=== PATIENT | female | born 1950 | race Caucasian/White ===

== ENCOUNTER → 2018-02-28 | Outpatient (CLI) | payer OTHER ==
[~2018-02-28] MED LIST: ACET-1256 PO; AMB10 PO; ATOR10TA82 PO; CZR25 PO; HYDC25 PO; LEVO100T84 PO; SERT50TA PO
--- NOTE | 2018-03-01 05:49 | PAP/PSG TECHNICIAN REPORT ---
[facility] Clinical Safety Manager Polysomnogram Report Study name: None Report date: 03/01/2018 Study date: 02/28/2018 Referring Physician: Dr. Lopez Name: KATHIE KINSEY Interpreting Physician: Latha Lopez M.D. Date of : 1950 Clinical Safety Manager: Zach Castellanos RPSGT. Sex: Female Age: 67 StudyType: PSG Weight: 188 lbs 15 inches Height: 67 years, Height 5' 4" Neck Circum: BMI: 32.27 Medications: AMBIEN 5 MG, ATIVAN 0.5 MG, LEVOXYL 125 MCG, TOPROL XL 125 MCG, ZOLOFT 50 MG, BUMEX 0.5 MG, PLAVIX 75 MG, LOSARTAN POTASSIUM 100 MG, ZOCOR 80 MG, NITROSTAT 0.4 MG, ASPIRIN 81 MG Patient History PATIENT HAS HISTORY OF DEPRESSION, INSOMNIA, HYPERTENSION AND SNORING. SHE IS HERE TODAY FOR AN EVALUATION FOR BASILIA. ESS = 4 RM 6 Parameters Monitored NPSG: E1-M2, E2-M1, Fp1-M2, Fp2-M1, F3-M2, F4-M2, F4-M1, C3-M2, C4-M2, C4-M1, O1-M2, O2-M2, O2-M1, T3-M2, T4-M1, P3-M2, P4-M1, CHIN1, CHIN2, HR, EKG, Legs, PFLOW, SNOR, FLOW, CFLOW, Tidal Volume, THOR, ABDO, SpO2, PLTH, CPRESS, ETCO2 Wave, ETCO2, pH Sleep Architecture Sleep Stages Time at Lights Off 10:14:41 PM STAGES Time (min.) TST (%) Time at Lights On 5:24:11 AM Wake 64.0 -- Total Recording Time (TRT) 430.00 min. N1 34.0 9 Total Sleep Period (TSP) 413.0 min. N2 305.0 83 Total Sleep Time (TST) 365.5min. N3 11.0 3 Awake Time 64.0 min. REM 15.5 4 Wake after Sleep Onset 47.5 min. Sleep Efficiency (SE) 85 % Sleep Onset Latency (CHAPIN) 16.5 min. Number of Stage 1 Shifts None Awakenings 18 Stage Changes 80 Number of REM periods 1 REM 15.5 4 REM Latency 397.0 min. NREM 350.0 96 Body Position Analysis Supine Right Left Side Prone Vertical Total Sleep Time (min.) 89.0 284.0 0.0 284.00 0.0 0.0 Total Sleep Time (%) 22% 78% 0% 78 0% N/A% Total Sleep Time REM (min.) 0.0 15.5 0.0 None 0.0 0.0 Total Sleep Time NREM (min.) 81.5 268.5 0.0 None 0.0 0.0 Intermittent Wake (min.) 7.5 56.5 0.0 None 0.0 0.0 Total Sleep Period (%) 21% None None None None None Arousals Myoclonus (PLM) * Events Count Index Events Count Index Spontaneous 44 7 Events Awake (PLMW) 85 79.7 Respiratory 0 0.0 Events Asleep w/ Arousal (PLMA) 26 4.3 PLM 26 4 Events Asleep w/o Arousal (PLMS) 379 62.2 Snoring 1 0 Total Asleep 405 66.5 Total 71 12 Total 490 68 Respiratory Analysis * CA OA MA CH H RERA Total Count 0 8 1 0 99 0 108 Index 0.0 1.3 0.2 0 16.3 0 17.7 Mean Duration 0.0 16.1 18.9 0.00 14.5 0.0 14.6 Longest Duration 0.0 18.2 18.9 0.00 18.9 0.0 28.1 Respiratory Event Summary Total Supine ~Supine Right Left Prone REM NREM Apneas Count 9 9 0 0 N/A N/A 0 9 Index 1.5 7 0 0.0 N/A N/A 0 2 Hypopneas (4% Desat) Count 99 93 6 6 N/A N/A 0 99 Index 16.3 68.5 1 1.3 N/A N/A 0.0 17.0 Apneas & All Hypopneas Count 108 102 6 6 N/A N/A 0 108 Index 17.7 75 1 1 N/A N/A 0.0 18.5 Respiratory Events (Final Cigar And Box Examiner+All Hyp+RERA) Count 108 102 6 6 N/A N/A 0 108 Index 17.7 75 1 1.3 N/A N/A 0.0 18.5 Respiratory Related Arousal Count 0 102 0 0 N/A N/A 0 0 Index 0.0 0 0 0 N/A N/A 0 0 Snoring Analysis Supine Right Left Prone REM NREM Total Snore duration 5.7 min Snores count 88 219 N/A N/A 6 301 307 Snore mean duration 1.1 Sec Snores index 65 46 N/A N/A 23.2 51.6 50.4 TST with snoring (%) 1.6% SpO2 Analysis Total REM NREM Awake <50% 0.0 min. 0.0 min. 0.0 min. 0.0 min. 51 - 60% 0.0 min. 0.0 min. 0.0 min. 0.0 min. 61 - 70% 0.0 min. 0.0 min. 0.0 min. 0.0 min. 71 - 80% 0.0 min. 0.0 min. 0.0 min. 0.0 min. 81 - 90% 68.1 min. 0.5 min. 62.6 min. 5.1 min. 91 - 100% 360.1 min. 15.0 min. 287.2 min. 57.9 min. Average 92 92 92 93 Minimum SpO2 86 90 86 88 Desaturation Event Index 17.0 0.0 19.7 6.6 # Desat. Events below 89% 40 N/A 39 1 Time(%) with Saturation below 89% 1.2 0.0 1.2 0.1 Time(min.) with Saturation below 89% 5.2 0.0 4.9 0.3 Heart Rate Analysis End Tidal CO2 Analysis Min (bpm) Max (bpm) Average (bpm) TSP (mins) % of TSP Awake 44 127 51 Above 55 mmHg 0.0 0.0 NREM 41 58 46 50-55 mmHg 0.0 0.0 REM 44 51 47 45-50 mmHg 0.0 0.0 Overall 41 58 46 40-45 mmHg 0.0 0.0 35-40 mmHg 226.0 61.8 30-35 mmHg 120.9 33.1 Average ETCO2 0.3 Supplemental O2 Values Minimum O2 level: None Value Start Time End Time Clinical Safety Manager Comments Mrs. Kinsey slept in the right and supine positions. No cardiac arrhythmia noted. Leg movements noted. No bruxism noted. Snoring was noted and scored as a 2 on a scale of 1 through 5. (0=no snoring, 5=snoring loud enough to be heard through a closed door or down the [address] way) Mrs. Kinsey awoke to use the restroom 0 times during the night. Mrs. Kinsey stated I slept as well as I do when I am in my own bed. The final report will be interpreted and signed by a sleep physician. The completed physician report will then be placed in the patient medical record. Therapy (cm H2O) 0 TIB (min.) 429.5 TST (min.) 365.5 Sleep Onset (min.) 16.5 REM Onset From Sleep (min.) 397.0 Sleep Efficiency % 85 Wakefulness (%) 15 Wakefulness (min.) 64.0 NREM 1 (%) 9 NREM 1 (min.) 34.0 NREM 2 (%) 83 NREM 2 (min.) 305.0 NREM 3 (%) 3 NREM 3 (min.) 11.0 REM (%) 4 REM (min.) 15.5 # Arousals 71 Arousal Index 12 # Snore 307 Snore Index 50.4 AHI 17.7 AHI Supine 75 AHI Non-Supine 1 NREM AHI 18.5 REM AHI 0.0 RDI 17.7 # Obstructive Apnea 8 # Central Apnea 0 # Mixed Apnea 1 # Hypopneas 99 RERAs 0 Total Respiratory Events 108 Time Below SpO2 89% (min.) 4.9 Mean NREM SpO2 (%) 92 Mean REM SpO2 (%) 92 Mean Sleep SpO2 (%) 92 Min NREM SpO2 (%) 86 Min REM SpO2 (%) 90 Position Supine (min.) 89.0 Position Non-supine (min.) 284.0 LM Index Sleep 66.5 LM Index NREM 68.1 LM Index REM 31.0 Mean Heart Rate (bpm) 46 Min Heart Rate (bpm) 41
--- NOTE | 2018-03-16 15:38 | Sleep Study ---
Sleep Study Report Date of Service: 03/16/18 Sleep Study Report AN- > <MR-Medical Record#: [id number]> <RT-Report type: [id number]> <DB-Dictated by: CHRIS> <SI-Site: CEC> <TB-Transcribed by: EASYIII> <DE-Department: C.NEUR> [facility] Diagnostic Polysomnogram Interp Report Study name: None Report date: 03/16/2018 Study date: 02/28/2018 Referring Physician: Dr. Lopez Name: KATHIE RECIO Interpreting Physician: Latha Lopez M.D. Date of : 1950 Shoe Dyer: FORREST Parnell. Sex: Female Age: 67 Study Type: PSG Weight: 188 lbs Height: 67 years, Height 5' 4" Neck Circum: 15 BMI: 32.27 DIAGNOSTIC POLYSOMNOGRAPHY REPORT This patient was referred by Dr. Lopez. LORAINEAMPARO NISHANT RECIO, tested at 8:00: 41 PM on 02/28/2018, is a 67 year old female, date of 1950 who is 5' 4 " and 188 lbs, with a BMI of 32.27, which is elevated. This patient has an [place] Sleepiness Score of 4, which is normal. The neck circumference is 15 inches. Study scored by: Latha Lopez M.D. IMPRESSION: 1-Moderate obstructive sleep apnea syndrome. These respiratory events were associated with oxygen desaturations (georgette of 86 %). 2-Abnormal sleep architecture likely due to respiratory events and first night effect. RECOMMENDATIONS: 1-CPAP titration study. 2-Avoidance of alcohol and sedatives. Past medical history: Insomnia, HTN. Medications: Ambien, Ativan, Levoxyl, Toprol, Levoxyl, Toprol, Zoloft, Bumex, Plavix, Losartan, Zocor, Nitrostat, Aspirin Sleep Study Summary Procedure: The study was attended continuously by a electronic technologist. The monitored parameters included: left (E1-M2) and right (E2-M1) EOG, frontal (F3- M2 & F4-M1), central (C3-M2 & C4-M1) and occipital (O1-M2 & O2-M1) EEG, mental and submental EMG, left and right anterior tibialis EMG, left and right extensor digitorum EMG, single ECG waveform, snoring, continuous airflow with thermistor and nasal pressure transducer, chest and abdominal effort, oxygen saturation, EtCO2, and body position via video monitoring. Hypopnea definition: The nasal pressure signal excursions (or those of the alternative hypopnea sensor) drop by 30% of baseline. The duration of this drop occurs for a period lasting at least 10 seconds. There is a 4% desaturation from pre-event baseline or the event is associated with an arousal. At least 90 % of the event's duration must meet the amplitude reduction criteria for hypopnea. Sleep Data: This patient displayed normal latency to sleep onset of 16.5 min., with disrupted sleep architecture with sleep stage percentages of 8% N1, 74% N2, 3% N3, and 4% REM, with reduced sleep efficiency of 85% and with Total Sleep Time of 365.5 minutes. Respiratory Data: 108 respiratory events were observed. The apnea-hypopnea index was 17.7 which is moderate. The amounts of apneas/hypopneas are not evenly distributed throughout the study, with a non-REM RDI of 18.5 and a REM RDI of 0.0. Respiratory events were more frequent in the supine position. The longest respiratory event duration was 28.1 sec. Minimum NREM oxygen saturation was 86% ; minimum REM oxygen saturation was 90%. Time spent below SaO2 of 90% was 0.0 min. The time spent with SaO2 of 80-89% was 5 min. Snoring was noted to be present. Limb Movement: 405 limb movements were observed for an index of 66.5. Arousal: 71 arousals were observed, with a total index of 12. There were 44 spontaneous arousals, 0 respiratory arousals (respiratory arousal index of 0.0) , and 26 limb movement arousals (limb movement arousal index of 4). Cardiac: The average heart rate during sleep was 46 beats per minute, with a range of 41 to 58. During wake, the heart rate ranged from 44 to 127 beats per minute. There were no arrhythmias noted. [place]-P[place]al breathing was absent. EEG: There were no epileptic form features reported. Behavioral Observation: The patient reported that their sleep for this study was the same in duration and of the same quality as usual. The patient did not display unusual behaviors. Thank you for the courtesy of this referral. Dr Latha Lopez Board Certified in Internal/ Sleep Medicine
== END | disposition home or self-care (01) ==
LOC: C.NEUR 20:00
PROVIDERS: ATTEND Internal Medicine
DX: G47.33 Obstructive sleep apnea (adult) (pediatric) (principal)

== ENCOUNTER 2023-10-18 13:20 | Inpatient (IN) ==
--- NOTE | 2023-10-18 13:33 | ED Triage Note ---
Date of Service October 18, 2023 Provider in Triage Author: Catherine Fulton History of Present Illness This patient was briefly evaluated while in triage. An abbreviated physical exam was performed. This patient is a 73-year-old Female who presents to the ED for evaluation of weakness, dizziness x 7 days. Notes associated exertional SOB, denies chest pain. Recent cold sxs, lingering productive cough. Subjective fever. Diarrhea, 1 episode of vomiting. Reports h/o SD. Physical Exam Constitutional: alert and oriented x3. no acute distress. HEENT: normocephalic, atraumatic. normal conjunctiva.PERRLA. EOM's grossly intact. Respiratory: equal chest rise. normal respiratory effort, no accessory muscle use. Cardiovascular: regular rate and rhythm. MSK: moves all 4 extremities spontaneously Psych:appropriate mood and affect. Initial orders for labs and / or imaging were placed and patient was placed in the waiting area until a bed is available. Please see further documentation for the full ED course.
[2023-10-18] MEDS: SODIUM CHLORIDE 0.9% 500 ML IV ONE (14:53)
--- NOTE | 2023-10-18 15:23 | XRay Report ---
SINGLE VIEW CHEST CLINICAL HISTORY: Fatigue. Generalized weakness. FINDINGS: A PA chest radiograph is compared to study dated 03/19/2007. The heart is enlarged noting ath erosclerotic calcification of the thoracic area. The pulmonary vasculature is noncongested. Chronic i nterstitial thickening similar to previous. There is bibasilar scarring/atelectasis. No airspace cons olidation or large pleural effusion is identified. No pneumothorax is seen. The skeletal structures a re osteopenic. The bony thorax is grossly intact. Degenerative change is noted in the shoulders and s pine. IMPRESSION: Cardiomegaly with no active disease in the chest. ACT 112: Negative or not required by law. Electronically signed by: Chuck Arroyo M.D. 10/18/2023 3:22 PM
[2023-10-18 15:32] LABS: Basophils # (auto) 0.05 K/uL (0.00-0.20); Basophils % (auto) 0.3 %; Eosinophils # (auto) 0.04 K/uL (0.00-0.50); Eosinophils % (auto) 0.3 %; Hematocrit (blood only) 37.6 % (37.0-47.0); Hemoglobin 12.1 g/dl (12.0-16.0); Immature Granulocytes # (auto) 0.09 K/uL (0.01-0.20); Immature Granulocytes % (auto) 0.6 %; Lymphocytes # (auto) 2.11 K/uL (1.20-3.40); Lymphocytes % (auto) 13.6 %; Mean Corpuscular Hemoglobin 30.8 pg (25.0-34.0); Mean Corpuscular Hgb Conc 32.2 g/dL (32.0-36.0); Mean Corpuscular Volume 95.7 fL (80.0-100.0); Mean Platelet Volume 10.7 fL (9.4-12.4); Monocytes # (auto) 1.01 K/uL (0.11-0.59); Monocytes % (auto) 6.5 %; Neutrophils # (auto) 12.21 K/uL (1.40-6.50); Neutrophils % (auto) 78.7 %; Platelet Count 234 K/uL (130-400); RDW Coefficient of Variation 12.8 % (11.5-14.5); RDW Standard Deviation 45.1 fL (36.4-46.3); Red Blood Count 3.93 M/uL (4.20-5.40); White Blood Count 15.51 K/ul (4.8-10.8)
[2023-10-18 15:47] LABS: Albumin Globulin Ratio 1.1 (0.9-2); Albumin Level 4.1 gm/dl (3.4-5.0); BUN Creatinine Ratio 20.2 (10-20); Bilirubin,Total 0.7 mg/dl (0.2-1.0); Calcium 9.4 mg/dl (8.6-10.3); Est GFR (African American) 58.3 ml/min; Est GFR (Non-African American) 50.3 ml/min; Globulin 3.8 gm/dl (2.5-4.0); Potassium 4.1 mmol/L (3.5-5.1); Total Protein 7.9 gm/dl (6.0-8.3)
[2023-10-18 15:53] LABS: Troponin I High Sensitivity 9.1 pg/ml (0-14)
[2023-10-18 16:23] LABS: Adenovirus PCR Not Detected (NotDetected); Bordetella parapertussis PCR Not Detected (NotDetected); Bordetella pertussis PCR Not Detected (NotDetected); Chlamydia pneumoniae PCR Not Detected (NotDetected); Coronavirus 229E PCR Not Detected (NotDetected); Coronavirus CoV-2 (COVID19)PCR Not Detected (NotDetected); Coronavirus HKU1 PCR Not Detected (NotDetected); Coronavirus NL63 PCR Not Detected (NotDetected); Coronavirus OC43PCR Not Detected (NotDetected); Human Metapneumovirus PCR Not Detected (NotDetected); Influenza A PCR Not Detected (NotDetected); Influenza B PCR Not Detected (NotDetected); Mycoplasma pneumoniae PCR Not Detected (NotDetected); Parainfluenza Virus 1 PCR Not Detected (NotDetected); Parainfluenza Virus 2 PCR Not Detected (NotDetected); Parainfluenza Virus 3 PCR Not Detected (NotDetected); Parainfluenza Virus 4 PCR Not Detected (NotDetected); Respiratory Syncytial VirusPCR Not Detected (NotDetected); Rhinovirus/Enterovirus PCR Not Detected (NotDetected)
--- NOTE | 2023-10-18 17:53 | Electrocardiogram Report ---
Test Reason : Blood Pressure : / mmHG Vent. Rate : 064 BPM Atrial Rate : 064 BPM P-R Int : 128 ms QRS Dur : 090 ms QT Int : 400 ms P-R-T Axes : -06 -30 031 degrees QTc Int : 412 ms Normal sinus rhythm Left axis deviation Poor R wave progression, consider anterior RI vs. lead placement vs. LVH Abnormal ECG When compared with ECG of 19-MAR-2007 12:32, ST no longer depressed in Anterior leads Confirmed by Leo Norman ([id number]) on 10/18/2023 5:52:53 PM Referred By: Confirmed By:Leo Norman
--- NOTE | 2023-10-18 17:54 | Emergency Department Note ---
Impression & Plan Acute pyelonephritis, Acute UTI (urinary tract infection), Leukocytosis ED Provider Note HISTORY OF PRESENT ILLNESS: Patient is a 73-year-old female presenting with dizziness and malaise. Patient reports that for the last 5 or 6 days she has been having dizziness, described as feeling like she is going to pass out. Denies any chest pain. Reports short of breath when she walks. Denies any cough or fevers. Denies any sick contact exposures. Denies any abdominal pain, nausea or vomiting. She denies any measured fevers at home, but reports that she is getting rigors at nighttime and then breaks out into a sweat. Denies any dysuria or hematuria. Reports general malaise for the last 7 days. Reports having no appetite or energy. ROS: as above PHYSICAL EXAM: Constitutional: Patient appears in no acute distress. HENT: Head: Normocephalic and atraumatic. Eyes: EOMI, PERRL Mouth/Throat: Mucous membranes moist. Neck: Trachea midline. Neck supple. Cardiovascular: RRR, No murmurs, rubs or gallops. Intact distal pulses. Pulmonary/Chest: No respiratory distress. Breath sounds clear and equal bilaterally. No wheezes or rales. Abdominal: Abdomen soft, no tenderness, rebound or guarding. Musculoskeletal: No edema, tenderness or deformity noted. Skin: Warm and dry. No rash, erythema, pallor or cyanosis Psychiatric: Appropriate mood and affect for situation. Neurological: Alert and keenly responsive. CN II-XII grossly intact, moving all extremities equally and fully. MDM: - Vitals signs showed hypertension - History obtained via patient. Patient presents with dizziness and malaise. Patient reports for the last 5 to 6 days she been having dizziness described as feeling she is going to pass out when she stands up. Denies any chest pain. Reports she feels short of breath when she walks. Denies any cough or fevers. She does report that she has been having rigors and nighttime sweats for the last 6 days. Denies any dysuria or hematuria. Reports feeling generally unwell for the last 7 days and has not had much of an appetite. - Chronic conditions affecting care: none - Differential diagnoses include, but are not limited to: viral syndrome; pneumonia; UTI; ACS; diverticulitis - Order placed for continuous cardiac monitoring. At this time, monitor showed rate of 60 bpm with normal sinus rhythm, per my interpretation. - External medical records reviewed. - EKG interpreted by myself showed normal sinus rhythm. Rate 64 bpm. QT 400. No acute ischemic changes. - Laboratory workup interpreted by myself showed leukocytosis (WBC 15.51) with left shift; stable electrolytes; normal troponin - UA showed evidence of infection - Blood cultures and procalcitonin added to workup - Given 2g IV rocephin and 500 cc NS. - Viral panel negative - CXR negative for pneumonia, per my interpretation - CT abdomen/pelvis with IV contrast showed enhancement of the mid to lower pole of the left kidney with surrounding information concerning her pyelonephritis. - Patient has had poor oral intake for the last week and states she has not had much of an appetite secondary to her nausea. Concerned about her ability to take oral antibiotics at home for pyelonephritis. Her rigors and nighttime fevers are also concerning. - Discussion was had with case briefer about patient's case and need for admission - Hospitalist consulted for admission - [facility] ASSESSMENT AND PLAN: Diagnosis: UTI; pyelonephritis; leukocytosis Plan: admit Past Med/Surg History Social History Smoking Status: Former smoker Preferred Language: Uzbek Feels Safe at Home: Yes Allergies Allergies Allergy/AdvReac Type Severity Reaction Status Date / Time adhesive Allergy Intermediate REDDENED Verified 10/18/23 18:23 RASH hydrochlorothiazide Allergy Intermediate ITCHY Verified 10/18/23 18:23 [From HydroDiuril] THROAT & EYES Penicillins Allergy Intermediate HIVES/RASH Verified 10/18/23 18:23 Sulfa (Sulfonamide Allergy Intermediate RASH Verified 10/18/23 18:23 Antibiotics) DIRK Inhibitors AdvReac Intermediate Cough Verified 10/18/23 18:23 nitrofurantoin AdvReac Intermediate CHEST Verified 10/18/23 18:23 [From Macrobid] TIGHTNESS, HEADACHE, DIZZINESS Home Meds Home Medications Medication Instructions Recorded Confirmed aspirin 81 mg tablet,delayed 81 mg PO DAILY 10/18/23 10/18/23 release clopidogrel 75 mg tablet 75 mg PO QAM 10/18/23 10/18/23 famotidine 40 mg tablet 40 mg PO QAM 10/18/23 10/18/23 levothyroxine 100 mcg tablet 100 mcg PO DAILYBB 10/18/23 10/18/23 losartan 100 mg tablet 100 mg PO QAM 10/18/23 10/18/23 metformin 500 mg tablet,extended 500 mg PO QAM 10/18/23 10/18/23 release 24 hr metoprolol succinate 25 mg 12.5 mg PO QAM 10/18/23 10/18/23 tablet,extended release 24 hr metronidazole 0.75 % topical gel 1 applic topical BID PRN AFFECTED 10/18/23 10/18/23 AREAS nitroglycerin 0.4 mg sublingual 0.4 mg sublingual DIRECTED PRN 10/18/23 10/18/23 tablet Chest Pain omega 3-vbd-gvo-fish oil 1,200 mg 2 cap PO DAILY 10/18/23 10/18/23 (144 mg-216 mg) capsule (Fish Oil) sertraline 100 mg tablet 100 mg PO QAM 10/18/23 10/18/23 simvastatin 80 mg tablet 80 mg PO HS 10/18/23 10/18/23 zolpidem 5 mg tablet 5 mg PO HS PRN Sleep 10/18/23 10/18/23 Results & Data (ED) Vital Signs Vital Signs - 24 hr 10/18/23 13:30 10/18/23 18:05 10/18/23 18:11 Temperature 36.4 C L Temperature Source Oral Pulse Rate 68 55 L Pulse Rhythm Regular Pulse Strength Normal Respiratory Rate 20 16 Respiratory Effort / Characteristics Non-Labored Spontaneous Respiratory Depth Normal Respiratory Pattern Regular Blood Pressure 120/74 Blood Pressure [Right Arm] 166/68 H Blood Pressure Mean 89 Blood Pressure Mean [Right Arm] 100 Blood Pressure Position Sitting Pulse Oximetry 94 98 Oxygen Delivery Method Room Air Room Air Sepsis Recent Fever Within 48 Hours Yes Sepsis New/Unexplained Change in Mental Status N/A Sepsis Action Taken by Nursing No Action Required Laboratory Data 10/18/23 14:50 10/18/23 14:50 Lab Results 10/18/23 10/18/23 10/18/23 Range/Units 14:50 18:33 Unknown WBC 15.51 H (4.8-10.8) K/ul RBC 3.93 L (4.20-5.40) M/uL Hgb 12.1 (12.0-16.0) g/dl Hct 37.6 (37.0-47.0) % MCV 95.7 (80.0-100.0) fL MCH 30.8 (25.0-34.0) pg MCHC 32.2 (32.0-36.0) g/dL RDW Std Deviation 45.1 (36.4-46.3) fL RDW Coeff of David 12.8 (11.5-14.5) % Plt Count 234 (130-400) K/uL MPV 10.7 (9.4-12.4) fL Immature Gran % (Auto) 0.6 % Neut % (Auto) 78.7 % Lymph % (Auto) 13.6 % [place] % (Auto) 6.5 % Eos % (Auto) 0.3 % Baso % (Auto) 0.3 % Neut # (Auto) 12.21 H (1.40-6.50) K/uL Lymph # (Auto) 2.11 (1.20-3.40) K/uL [place] # (Auto) 1.01 H (0.11-0.59) K/uL Eos # (Auto) 0.04 (0.00-0.50) K/uL Baso # (Auto) 0.05 (0.00-0.20) K/uL Immature Gran # (Auto) 0.09 (0.01-0.20) K/uL Sodium 136 (136-145) mmol/L Potassium 4.1 (3.5-5.1) mmol/L Chloride 106 (98-107) mmol/L Carbon Dioxide 21 (21-32) mmol/L Anion Gap 9 (3-11) BUN 22 (6-23) mg/dl Creatinine 1.09 (0.6-1.2) mg/dl Est Cr Clr Drug Dosing 48.0 ml/min Est GFR ( Amer) 58.3 ml/min Est GFR (Non-Af Amer) 50.3 ml/min BUN/Creatinine Ratio 20.2 H (10-20) Glucose 138 H (70-99(Fasting)) mg/dl Calcium 9.4 (8.6-10.3) mg/dl Magnesium 2.0 (1.7-2.4) mg/dl Total Bilirubin 0.7 (0.2-1.0) mg/dl AST 14 (13-39) U/L ALT 10 (7-52) U/L Alkaline Phosphatase 65 (34-104) U/L Troponin I High Sens 9.1 (0-14) pg/ml Total Protein 7.9 (6.0-8.3) gm/dl Albumin 4.1 (3.4-5.0) gm/dl Globulin 3.8 (2.5-4.0) gm/dl Albumin/Globulin Ratio 1.1 (0.9-2) Procalcitonin 0.23 (0-0.5) ng/ml Urine Color Yellow Urine Appearance Turbid A (Clear) Urine pH 5.5 (4.5-7.5) Ur Specific [place] 1.017 (1.000-1.030) Urine Protein 1+ H (Negative) Urine Glucose (UA) Negative (Negative) Urine Ketones Negative (Negative) Urine Blood 1+ H (Negative) Urine Nitrite Negative (Negative) Urine Bilirubin Negative (Negative) Urine Urobilinogen Negative (Negative) Ur Leukocyte Esterase 3+ H (Negative) Urine WBC (Auto) >30 H (0-5) /hpf Urine RBC (Auto) 0-4 (0-4) /hpf U Hyaline Cast (Auto) 1-5 (0-5) /lpf U Epithel Cells (Auto) >30 H (0-5) /lpf Urine Bacteria (Auto) 2+ H (Negative) Adenovirus (PCR) Not Detected (NotDetected) B. pertussis DNA (PCR) Not Detected (NotDetected) B.parapertussis DNA PCR Not Detected (NotDetected) C. pneumoniae DNA (PCR) Not Detected (NotDetected) Coronavirus OC43 (PCR) Not Detected (NotDetected) Coronavirus HKU1 (PCR) Not Detected (NotDetected) Coronavirus 229E (PCR) Not Detected (NotDetected) SARS-CoV-2 (PCR) Not Detected (NotDetected) Coronavirus NL63 (PCR) Not Detected (NotDetected) Human Metapneumovir PCR Not Detected (NotDetected) Influenza Type A (PCR) Not Detected (NotDetected) Influenza Type B (PCR) Not Detected (NotDetected) M. pneumoniae (PCR) Not Detected (NotDetected) Parainfluenza 1 (PCR) Not Detected (NotDetected) Parainfluenza 2 (PCR) Not Detected (NotDetected) Parainfluenza 3 (PCR) Not Detected (NotDetected) Parainfluenza 4 (PCR) Not Detected (NotDetected) RSV (PCR) Not Detected (NotDetected) Entero/Rhino (PCR) Not Detected (NotDetected) Administered Medications Discontinued Medications Sodium Chloride (Nss) 500 mls @ 999 mls/hr IV .Q31M ONE Stop: 10/18/23 14:04 Last Infusion: 10/18/23 18:24 Dose: Infused Documented By: Admin: 10/18/23 14:53 Dose: 999 mls/hr Documented By: JOVANNI Ioversol (Optiray 320 500ml) 85 ml IV ONCE ONE Stop: 10/18/23 18:17 Last Admin: 10/18/23 18:16 Dose: 85 ml Documented By: RILEY Imaging Data Radiologist's Impression: Chest X-Ray 10/18/23 13:33 SINGLE VIEW CHEST CLINICAL HISTORY: Fatigue. Generalized weakness. FINDINGS: A PA chest radiograph is compared to study dated 03/19/2007. The heart is enlarged noting atherosclerotic calcification of the thoracic area. The pulmonary vasculature is noncongested. Chronic interstitial thickening similar to previous. There is bibasilar scarring/atelectasis. No airspace consolidation or large pleural effusion is identified. No pneumothorax is seen. The skeletal structures are osteopenic. The bony thorax is grossly intact. Degenerative change is noted in the shoulders and spine. IMPRESSION: Cardiomegaly with no active disease in the chest. ACT 112: Negative or not required by law. Electronically signed by: Chuck Arroyo M.D. 10/18/2023 3:22 PM Abdomen/Pelvis CT 10/18/23 17:53 CT SCAN OF THE ABDOMEN AND PELVIS WITH IV CONTRAST CLINICAL HISTORY: Vomiting. Night sweats. Generalized weakness. COMPARISON STUDY: No priors. TECHNIQUE: Following the IV administration of 85 cc of Optiray 320, CT scan of the abdomen and pelvis is performed from the lung bases to the proximal femora. Images are reviewed in the axial, sagittal, and coronal planes. IV contrast was administered without complication. A dose lowering technique was utilized adhering to the principles of ALARA. CT DOSE: 1285.32 mGy.cm FINDINGS: Lung bases: The heart is normal in size and without pericardial effusion. The coronary arteries are densely calcified. There is bibasilar scarring/atelectasis. The lung bases are otherwise clear. Liver: The contrast-enhanced liver is normal in size, contour, and attenuation. There is no intrahepatic biliary ductal dilatation. The hepatic veins and portal veins are patent. Gallbladder: There calcified gallstones with no CT evidence of acute cholecystitis. Spleen: Normal in size and attenuation. Pancreas: Atrophic and grossly unremarkable. Adrenal glands: Unremarkable. Kidneys: The contrast enhanced kidneys are normal in size and without hydronephrosis. The right kidney enhances normally. There is heterogeneous enhancement seen in the mid to lower pole of the left kidney with associated perinephric stranding. A 1.8 cm cyst is noted in the right kidney. Additional subcentimeter cortical hypodensities also likely represent cysts but are too small for definitive characterization. Abdominal vasculature: There is advanced saphenous chronic calcification and ectasia of the abdominal aorta. There is mild aneurysmal dilatation of the left common iliac artery which measures up to 2.1 cm. Bowel: There is advanced diverticulosis of the left colon without CT evidence of diverticulitis. The appendix is well-visualized and normal. Peritoneum: There is no intraperitoneal free air or abdominal ascites. Lymphadenopathy: None. Pelvic viscera: The bladder is normal as visualized. The uterus is surgically absent. No adnexal lesion is seen. Skeletal structures: The skeletal structures are osteopenic. There is moderate to advanced lumbosacral spondylosis. No lytic or blastic lesions are seen. IMPRESSION: 1. There is heterogeneous enhancement in the mid to lower pole of the left kidney with surrounding inflammation. The appearance favors pyelonephritis. Correlate with clinical findings and urinalysis. 2. Cholelithiasis. 3. Advanced coronary artery atherosclerosis. 4. Colonic diverticulosis without CT evidence of acute diverticulitis. 5. Additional findings as above. ACT 112: Negative or not required by law. Electronically signed by: Chuck Arroyo M.D. 10/18/2023 6:36 PM Discharge Plan Visit Data Chief Complaint: Lethargic Stated Complaint: FATIGUE, HX OF CARDIAC EVENTS ED Provider: Catherine Fulton Discharge Problem: Acute pyelonephritis, Acute UTI (urinary tract infection), Leukocytosis Forms Stand Alone Forms: [facility] [place] Prescriptions Prescriptions: No Action famotidine 40 mg tablet 40 mg PO QAM sertraline 100 mg tablet 100 mg PO QAM clopidogrel 75 mg tablet 75 mg PO QAM simvastatin 80 mg tablet 80 mg PO HS aspirin 81 mg Tablet,Delayed Release (Dr/Ec) 81 mg PO DAILY levothyroxine 100 mcg tablet 100 mcg PO DAILYBB nitroglycerin 0.4 mg tablet, sublingual 0.4 mg sublingual DIRECTED PRN (Reason: Chest Pain) Rx Instructions: 1 TABLET UNDER TONGUE EVERY 5 MIN. FOR CHEST PAIN, MAX 3 DOSES IN 15 MINUTES. zolpidem 5 mg tablet 5 mg PO HS PRN (Reason: Sleep) metoprolol succinate 25 mg tablet extended release 24 hr 12.5 mg PO QAM losartan 100 mg tablet 100 mg PO QAM metformin 500 mg tablet extended release 24 hr 500 mg PO QAM metronidazole [Metrogel] 0.75 % Gel 1 applic TOPICAL BID PRN (Reason: AFFECTED AREAS) omega 6-wka-ays-fish oil [Fish Oil] 1,200 (144-216) mg Capsule 2 cap PO DAILY Referrals Referrals: Be Valdivia MD [Primary Care Provider] -
[2023-10-18] MEDS: OPTIRAY 320 500ml IV ONE (18:16)
[2023-10-18 18:27] LABS: Appearance Urine Turbid (Clear); Bacteria Urine Automated 2+ (Negative); Bilirubin Urine Negative (Negative); Blood Urine 1+ (Negative); Color Urine Yellow; Epithelial Cell Urine Auto >30 /lpf (0-5); Glucose Urine UA Negative (Negative); Ketones Urine Negative (Negative); Leukocyte Esterase Urine 3+ (Negative); Nitrite Urine Negative (Negative); Protein Urine 1+ (Negative); RBC Urine Automated 0-4 /hpf (0-4); Specific Gravity Urine 1.017 (1.000-1.030); Urobilinogen Urine Negative (Negative); WBC Urine Automated >30 /hpf (0-5); pH Urine 5.5 (4.5-7.5)
--- NOTE | 2023-10-18 18:38 | CT Scan Report ---
CT SCAN OF THE ABDOMEN AND PELVIS WITH IV CONTRAST CLINICAL HISTORY: Vomiting. Night sweats. Generalized weakness. COMPARISON STUDY: No priors. TECHNIQUE: Following the IV administration of 85 cc of Optiray 320, CT scan of the abdomen and pelvi s is performed from the lung bases to the proximal femora. Images are reviewed in the axial, sagittal , and coronal planes. IV contrast was administered without complication. A dose lowering technique wa s utilized adhering to the principles of ALARA. CT DOSE: 1285.32 mGy.cm FINDINGS: Lung bases: The heart is normal in size and without pericardial effusion. The coronary arteries are d ensely calcified. There is bibasilar scarring/atelectasis. The lung bases are otherwise clear. Liver: The contrast-enhanced liver is normal in size, contour, and attenuation. There is no intrahepa tic biliary ductal dilatation. The hepatic veins and portal veins are patent. Gallbladder: There calcified gallstones with no CT evidence of acute cholecystitis. Spleen: Normal in size and attenuation. Pancreas: Atrophic and grossly unremarkable. Adrenal glands: Unremarkable. Kidneys: The contrast enhanced kidneys are normal in size and without hydronephrosis. The right kidne y enhances normally. There is heterogeneous enhancement seen in the mid to lower pole of the left kid tita with associated perinephric stranding. A 1.8 cm cyst is noted in the right kidney. Additional sub centimeter cortical hypodensities also likely represent cysts but are too small for definitive charac terization. Abdominal vasculature: There is advanced saphenous chronic calcification and ectasia of the abdominal aorta. There is mild aneurysmal dilatation of the left common iliac artery which measures up to 2.1 cm. Bowel: There is advanced diverticulosis of the left colon without CT evidence of diverticulitis. The appendix is well-visualized and normal. Peritoneum: There is no intraperitoneal free air or abdominal ascites. Lymphadenopathy: None. Pelvic viscera: The bladder is normal as visualized. The uterus is surgically absent. No adnexal lesi on is seen. Skeletal structures: The skeletal structures are osteopenic. There is moderate to advanced lumbosacra l spondylosis. No lytic or blastic lesions are seen. IMPRESSION: 1. There is heterogeneous enhancement in the mid to lower pole of the left kidney with surrounding in flammation. The appearance favors pyelonephritis. Correlate with clinical findings and urinalysis. 2. Cholelithiasis. 3. Advanced coronary artery atherosclerosis. 4. Colonic diverticulosis without CT evidence of acute diverticulitis. 5. Additional findings as above. ACT 112: Negative or not required by law. Electronically signed by: Chuck Arroyo M.D. 10/18/2023 6:36 PM
[2023-10-18] MEDS: cefTRIAXone SODIUM 2,000 MG/50 ML BAG IV STA (19:39)
--- NOTE | 2023-10-18 21:02 | History & Physical Report ---
Date of Service October 18, 2023 Assessment & Plan (1) Acute pyelonephritis: Plan: 73-year-old female with past medical history significant for type 2 diabetes, hyperlipidemia, hypothyroidism, obstructive obstructive apnea, hypertension, CAD status post stent, history of bradycardia, GERD, fatty liver, restless leg syndrome, psychophysiological insomnia, comes with dizziness and weakness going on for last 1 week and found to have UTI. She is coughing and bringing phlegm for some time now. Getting short of breath on exertion. Having bilateral flank pain. Denies any chest pain. No headache. Vision is okay. Currently no runny nose or sore throat or earaches. No abdominal pain. Somewhat constipated. Denies any blood in the stools. Normal bladder movements.. Resting comfortably and hemodynamically stable. Acute pyelonephritis UA positive CT scan showing pyonephritis Empiric Rocephin, gentle fluids for 1 L Follow cultures Close monitor Weakness and dizziness Mostly from above Will monitor PT OT when stable Diabetes Hold metformin Sliding scale Will follow HbA1c CAD s/p stents On aspirin and Plavix and metoprolol succinate and statin Hypertension on metoprolol succinate and losartan Will monitor GERD Pepcid Hypothyroidism On Synthyroid Obstructive sleep apnea CPAP nightly Cough sob? cxr is ok will monitor if needed will do ct scan. DVT prophylaxis Lovenox Disposition Medical floor Full code History of Present Illness Chief Complaint: Weakness, dizziness, UTI Primary Care Provider: Be Valdivia MD 73-year-old female with past medical history significant for type 2 diabetes, hyperlipidemia, hypothyroidism, obstructive sleep apnea, hypertension, CAD status post stent, history of bradycardia, GERD, fatty liver, restless leg syndrome, psychophysiological insomnia, comes with dizziness and weakness going on for last 1 week and found to have UTI. She is coughing and bringing phlegm for some time now. Getting short of breath on exertion. Having bilateral flank pain. Denies any chest pain. No headache. Vision is okay. Currently no runny nose or sore throat or earaches. No abdominal pain. Somewhat constipated. Denies any blood in the stools. Normal bladder movements.. Resting comfortably and hemodynamically stable. Past med history as mentioned above Past surgical history. Colonoscopy. Cataracts. Total hysterectomy. S/p cardiac stent placement. Social history. . Quit smoking 2002. Smoked 1 pack a day for 33 years. No alcohol use. No drug use. Family history. Brother had [place]. Brother had multiple pacemakers. Father had heart disorder. Hypertension. Mother had stroke. Sister has asthma. Maternal aunt had breast cancer Allergies Allergy/AdvReac Type Severity Reaction Status Date / Time adhesive Allergy Intermediate REDDENED Verified 10/18/23 18:23 RASH hydrochlorothiazide Allergy Intermediate ITCHY Verified 10/18/23 18:23 [From HydroDiuril] THROAT & EYES Penicillins Allergy Intermediate HIVES/RASH Verified 10/18/23 18:23 Sulfa (Sulfonamide Allergy Intermediate RASH Verified 10/18/23 18:23 Antibiotics) DIRK Inhibitors AdvReac Intermediate Cough Verified 10/18/23 18:23 nitrofurantoin AdvReac Intermediate CHEST Verified 10/18/23 18:23 [From Macrobid] TIGHTNESS, HEADACHE, DIZZINESS Home Medications Medication Instructions Recorded Confirmed Type aspirin 81 mg tablet,delayed 81 mg PO DAILY 10/18/23 10/18/23 History release clopidogrel 75 mg tablet 75 mg PO QA 10/18/23 10/18/23 History famotidine 40 mg tablet 40 mg PO QA 10/18/23 10/18/23 History levothyroxine 100 mcg tablet 100 mcg PO DAILYBB 10/18/23 10/18/23 History losartan 100 mg tablet 100 mg PO QA 10/18/23 10/18/23 History metformin 500 mg tablet,extended 500 mg PO QAM 10/18/23 10/18/23 History release 24 hr metoprolol succinate 25 mg 12.5 mg PO QAM 10/18/23 10/18/23 History tablet,extended release 24 hr metronidazole 0.75 % topical gel 1 applic topical BID PRN AFFECTED 10/18/23 10/18/23 History AREAS nitroglycerin 0.4 mg sublingual 0.4 mg sublingual DIRECTED PRN 10/18/23 10/18/23 History tablet Chest Pain omega 5-nro-fsb-fish oil 1,200 mg 2 cap PO DAILY 10/18/23 10/18/23 History (144 mg-216 mg) capsule (Fish Oil) sertraline 100 mg tablet 100 mg PO QAM 10/18/23 10/18/23 History simvastatin 80 mg tablet 80 mg PO HS 10/18/23 10/18/23 History zolpidem 5 mg tablet 5 mg PO HS PRN Sleep 10/18/23 10/18/23 History Past Med/Surg History Social History Smoking Status: Former smoker Second Hand Exposure: No; Do You Dip or Chew Tobacco: No; Hx Alcohol Use: No Hx Substance Use: No Preferred Language: Congolese Communication Ability: Effective Sign Language Interpreter Required: No Beliefs That Will Affect Care: None Current Living Situation: Spouse Current Living Situation Comment: lives in a 2 story home with Other Information That Helps Us Care for You: No Feels Safe at Home: Yes Safety Concerns: Feels Safe At This Time Assistive Devices: CPAP and Glasses Review of Systems Review of Systems: All systems reviewed & are unremarkable except as noted in HPI & below Physical Exam Physical Exam: General- Not in distress. Head- atraumatic Eyes- PERRL. ENT- oropharynx clear Neck- supple, no JVD. Lungs- clear to auscultation no wheezing or crackles. Heart- regular rhythm; no murmur, no gallop. Abdomen- normal bowel sounds, soft, nontender, no distension.No cva tenderness Extremities- no pretibial edema, no erythema seen. Neuro- alert, oriented PERRL, no facial palsy; no dysarthria; Skin- warm & dry Results & Data Results & Data Vital Signs (Past 12 Hours) Vital Signs Temp Pulse Pulse Resp BP BP Pulse Ox 10/18/23 19:51 60 18 128/61 96 10/18/23 18:11 55 L 10/18/23 18:05 16 166/68 H 98 10/18/23 13:30 36.4 C L 68 20 120/74 94 O2 Del Method 10/18/23 19:51 Room Air 10/18/23 18:11 10/18/23 18:05 Room Air 10/18/23 13:30 Room Air Diagnostic Findings Laboratory Results WBC 15.51 K/ul (4.8-10.8) H 10/18/23 14:50 RBC 3.93 M/uL (4.20-5.40) L 10/18/23 14:50 Hgb 12.1 g/dl (12.0-16.0) 10/18/23 14:50 Hct 37.6 % (37.0-47.0) 10/18/23 14:50 MCV 95.7 fL (80.0-100.0) 10/18/23 14:50 MCH 30.8 pg (25.0-34.0) 10/18/23 14:50 MCHC 32.2 g/dL (32.0-36.0) 10/18/23 14:50 RDW Std Deviation 45.1 fL (36.4-46.3) 10/18/23 14:50 RDW Coeff of David 12.8 % (11.5-14.5) 10/18/23 14:50 Plt Count 234 K/uL (130-400) 10/18/23 14:50 MPV 10.7 fL (9.4-12.4) 10/18/23 14:50 Immature Gran % (Auto) 0.6 % 10/18/23 14:50 Neut % (Auto) 78.7 % 10/18/23 14:50 Lymph % (Auto) 13.6 % 10/18/23 14:50 [place] % (Auto) 6.5 % 10/18/23 14:50 Eos % (Auto) 0.3 % 10/18/23 14:50 Baso % (Auto) 0.3 % 10/18/23 14:50 Neut # (Auto) 12.21 K/uL (1.40-6.50) H 10/18/23 14:50 Lymph # (Auto) 2.11 K/uL (1.20-3.40) 10/18/23 14:50 [place] # (Auto) 1.01 K/uL (0.11-0.59) H 10/18/23 14:50 Eos # (Auto) 0.04 K/uL (0.00-0.50) 10/18/23 14:50 Baso # (Auto) 0.05 K/uL (0.00-0.20) 10/18/23 14:50 Immature Gran # (Auto) 0.09 K/uL (0.01-0.20) 10/18/23 14:50 Sodium 136 mmol/L (136-145) 10/18/23 14:50 Potassium 4.1 mmol/L (3.5-5.1) 10/18/23 14:50 Chloride 106 mmol/L (98-107) 10/18/23 14:50 Carbon Dioxide 21 mmol/L (21-32) 10/18/23 14:50 Anion Gap 9 (3-11) 10/18/23 14:50 BUN 22 mg/dl (6-23) 10/18/23 14:50 Creatinine 1.09 mg/dl (0.6-1.2) 10/18/23 14:50 Est Cr Clr Drug Dosing 48.0 ml/min 10/18/23 14:50 Est GFR ( Amer) 58.3 ml/min 10/18/23 14:50 Est GFR (Non-Af Amer) 50.3 ml/min 10/18/23 14:50 BUN/Creatinine Ratio 20.2 (10-20) H 10/18/23 14:50 Glucose 138 mg/dl (70-99(Fasting)) H 10/18/23 14:50 Calcium 9.4 mg/dl (8.6-10.3) 10/18/23 14:50 Magnesium 2.0 mg/dl (1.7-2.4) 10/18/23 14:50 Total Bilirubin 0.7 mg/dl (0.2-1.0) 10/18/23 14:50 AST 14 U/L (13-39) 10/18/23 14:50 ALT 10 U/L (7-52) 10/18/23 14:50 Alkaline Phosphatase 65 U/L (34-104) 10/18/23 14:50 Troponin I High Sens 9.1 pg/ml (0-14) 10/18/23 14:50 Total Protein 7.9 gm/dl (6.0-8.3) 10/18/23 14:50 Albumin 4.1 gm/dl (3.4-5.0) 10/18/23 14:50 Globulin 3.8 gm/dl (2.5-4.0) 10/18/23 14:50 Albumin/Globulin Ratio 1.1 (0.9-2) 10/18/23 14:50 Procalcitonin 0.23 ng/ml (0-0.5) 10/18/23 18:33 Urine Color Yellow 10/18/23 Unknown Urine Appearance Turbid (Clear) A 10/18/23 Unknown Urine pH 5.5 (4.5-7.5) 10/18/23 Unknown Ur Specific [place] 1.017 (1.000-1.030) 10/18/23 Unknown Urine Protein 1+ (Negative) H 10/18/23 Unknown Urine Glucose (UA) Negative (Negative) 10/18/23 Unknown Urine Ketones Negative (Negative) 10/18/23 Unknown Urine Blood 1+ (Negative) H 10/18/23 Unknown Urine Nitrite Negative (Negative) 10/18/23 Unknown Urine Bilirubin Negative (Negative) 10/18/23 Unknown Urine Urobilinogen Negative (Negative) 10/18/23 Unknown Ur Leukocyte Esterase 3+ (Negative) H 10/18/23 Unknown Urine WBC (Auto) >30 /hpf (0-5) H 10/18/23 Unknown Urine RBC (Auto) 0-4 /hpf (0-4) 10/18/23 Unknown U Hyaline Cast (Auto) 1-5 /lpf (0-5) 10/18/23 Unknown U Epithel Cells (Auto) >30 /lpf (0-5) H 10/18/23 Unknown Urine Bacteria (Auto) 2+ (Negative) H 10/18/23 Unknown Adenovirus (PCR) Not Detected (NotDetected) 10/18/23 Unknown B. pertussis DNA (PCR) Not Detected (NotDetected) 10/18/23 Unknown B.parapertussis DNA PCR Not Detected (NotDetected) 10/18/23 Unknown C. pneumoniae DNA (PCR) Not Detected (NotDetected) 10/18/23 Unknown Coronavirus OC43 (PCR) Not Detected (NotDetected) 10/18/23 Unknown Coronavirus HKU1 (PCR) Not Detected (NotDetected) 10/18/23 Unknown Coronavirus 229E (PCR) Not Detected (NotDetected) 10/18/23 Unknown SARS-CoV-2 (PCR) Not Detected (NotDetected) 10/18/23 Unknown Coronavirus NL63 (PCR) Not Detected (NotDetected) 10/18/23 Unknown Human Metapneumovir PCR Not Detected (NotDetected) 10/18/23 Unknown Influenza Type A (PCR) Not Detected (NotDetected) 10/18/23 Unknown Influenza Type B (PCR) Not Detected (NotDetected) 10/18/23 Unknown M. pneumoniae (PCR) Not Detected (NotDetected) 10/18/23 Unknown Parainfluenza 1 (PCR) Not Detected (NotDetected) 10/18/23 Unknown Parainfluenza 2 (PCR) Not Detected (NotDetected) 10/18/23 Unknown Parainfluenza 3 (PCR) Not Detected (NotDetected) 10/18/23 Unknown Parainfluenza 4 (PCR) Not Detected (NotDetected) 10/18/23 Unknown RSV (PCR) Not Detected (NotDetected) 10/18/23 Unknown Entero/Rhino (PCR) Not Detected (NotDetected) 10/18/23 Unknown Impressions Chest X-Ray 10/18/23 13:33 SINGLE VIEW CHEST CLINICAL HISTORY: Fatigue. Generalized weakness. FINDINGS: A PA chest radiograph is compared to study dated 03/19/2007. The heart is enlarged noting atherosclerotic calcification of the thoracic area. The pulmonary vasculature is noncongested. Chronic interstitial thickening similar to previous. There is bibasilar scarring/atelectasis. No airspace consolidation or large pleural effusion is identified. No pneumothorax is seen. The skeletal structures are osteopenic. The bony thorax is grossly intact. Degenerative change is noted in the shoulders and spine. IMPRESSION: Cardiomegaly with no active disease in the chest. ACT 112: Negative or not required by law. Electronically signed by: Chuck Arroyo M.D. 10/18/2023 3:22 PM Abdomen/Pelvis CT 10/18/23 17:53 CT SCAN OF THE ABDOMEN AND PELVIS WITH IV CONTRAST CLINICAL HISTORY: Vomiting. Night sweats. Generalized weakness. COMPARISON STUDY: No priors. TECHNIQUE: Following the IV administration of 85 cc of Optiray 320, CT scan of the abdomen and pelvis is performed from the lung bases to the proximal femora. Images are reviewed in the axial, sagittal, and coronal planes. IV contrast was administered without complication. A dose lowering technique was utilized adhering to the principles of ALARA. CT DOSE: 1285.32 mGy.cm FINDINGS: Lung bases: The heart is normal in size and without pericardial effusion. The coronary arteries are densely calcified. There is bibasilar scarring/atelectasis. The lung bases are otherwise clear. Liver: The contrast-enhanced liver is normal in size, contour, and attenuation. There is no intrahepatic biliary ductal dilatation. The hepatic veins and portal veins are patent. Gallbladder: There calcified gallstones with no CT evidence of acute cholecystitis. Spleen: Normal in size and attenuation. Pancreas: Atrophic and grossly unremarkable. Adrenal glands: Unremarkable. Kidneys: The contrast enhanced kidneys are normal in size and without hydronephrosis. The right kidney enhances normally. There is heterogeneous enhancement seen in the mid to lower pole of the left kidney with associated perinephric stranding. A 1.8 cm cyst is noted in the right kidney. Additional subcentimeter cortical hypodensities also likely represent cysts but are too small for definitive characterization. Abdominal vasculature: There is advanced saphenous chronic calcification and ectasia of the abdominal aorta. There is mild aneurysmal dilatation of the left common iliac artery which measures up to 2.1 cm. Bowel: There is advanced diverticulosis of the left colon without CT evidence of diverticulitis. The appendix is well-visualized and normal. Peritoneum: There is no intraperitoneal free air or abdominal ascites. Lymphadenopathy: None. Pelvic viscera: The bladder is normal as visualized. The uterus is surgically absent. No adnexal lesion is seen. Skeletal structures: The skeletal structures are osteopenic. There is moderate to advanced lumbosacral spondylosis. No lytic or blastic lesions are seen. IMPRESSION: 1. There is heterogeneous enhancement in the mid to lower pole of the left kidney with surrounding inflammation. The appearance favors pyelonephritis. Correlate with clinical findings and urinalysis. 2. Cholelithiasis. 3. Advanced coronary artery atherosclerosis. 4. Colonic diverticulosis without CT evidence of acute diverticulitis. 5. Additional findings as above. ACT 112: Negative or not required by law. Electronically signed by: Chuck Arroyo M.D. 10/18/2023 6:36 PM ECG Additional Comments: ECG. Normal sinus rhythm rate of 64. Left axis deviation. No acute ST changes seen. Code Status & VTE Plan VTE Prophylaxis Plan VTE Prophylaxis will be ordered: Yes
[2023-10-18] MEDS ORDERED: metroNIDAZOLE 0.75% TOPICAL GEL 45 GM TUBE TOP PRN (23:06)
[2023-10-18] MEDS ORDERED: NITROGLYCERIN SL 0.4 MG/TAB TAB SL PRN (23:06)
[2023-10-18] MEDS ORDERED: GLUCOSE 10 TAB/TUBE PO PRN (23:06)
[2023-10-18] MEDS ORDERED: GLUCAGON FOR INJ 1 MG VIAL SQ PRN (23:06)
[2023-10-18] MEDS ORDERED: CARBOHYDRATES FOR HYPOGLYCEMIA PO PRN (23:06)
[2023-10-18] MEDS ORDERED: ACETAMINOPHEN 325 MG TAB PO PRN (23:06)
[2023-10-18] MEDS ORDERED: GLUCOSE 40% GEL 15 GM TUBE PO PRN (23:06)
[2023-10-18] MEDS ORDERED: DEXTROSE 50% 50 ML SYRINGE IV PRN (23:06)
[2023-10-18] MEDS: INSULIN ASPART PER UNIT CHARGE SC SCH (23:20)
[2023-10-18] MEDS: SIMVASTATIN 80 MG TAB PO SCH (23:39)
[2023-10-18] MEDS: ZOLPIDEM TARTRATE 5 MG TAB PO PRN (23:39)
[2023-10-18] MEDS: SODIUM CHLORIDE 0.9% 1,000 ML IV SCH (23:40)
--- OUTSIDE RECORDS SUMMARY | 2023-10-19 00:47 | External Medical Summary | Summary of Care ---
Author Name Unknown Organization [facility] Address [address] [facility] [address] Phone [phone] Care Team Providers Care Wood Block Artist Name Role Phone Be Strickland MD Primary Care Provider + Reason for Visit * Reason Comments eRx-Medication Refill Encounter Details Date Type Department Care Team (Late st Contact Info) Description 09/22/2023 Refill Family Practice [facility] [address] [facility] [place] [address] Be Strickland [facility] [address] [facility] [id number] Gastroesophageal reflux disease without esophagitis Allergies Active Allergy Reactions Criticality Noted Date Comments Carlos Inhibitors 09/08/2004 cough Hydrodiuril 06/30/2007 Itchy eyes and throat, also hoarseness Latex 03/20/2007 Band-aids cause redness/rash at site Nitrofurantoin 08/03/2021 Headache, chest tightness, dizziness Penicillins 04/05/2003 hives, rash Sulfa Antibiotics 04/05/2003 rash Adhesive Tape 03/19/2007 rash documented as of this encounter (statuses as of 10/16/2023) Medications Medication Sig Dispensed Refills Start Date End Date Status ASPIRIN 81 MG PO TABS 1 TABLET DAILY 0 Active FISH OIL 1200 MG PO CAPSIndications:E panda 2 daily 0 0 10/20/2007 Active metroNIDAZOLE 0.75 % External Gel (Metrogel)Indicat ions:Rosacea Apply topically to affected area 2 times a day. Apply to affected area 45 g 11 09/14/2022 Active Metoprolol Succinate ER 25 MG Oral Tablet Extended Release 24 Hour (toPROL XL)Indications:Dy slipidemia, goal LDL below 100,S/P angioplasty with stent,Abdominal aortic aneurysm (HCC),HTN, goal below 140/90 TAKE ONE-HALF TABLET BY MOUTH EVERY MORNING 50 Tablet 3 02/04/2023 4 Active Levothyroxine Sodium 100 MCG Oral Tablet (Levoxyl)Indicati ons:Hypothyroidis m, unspecified type Take 1 Tablet by mouth in the morning. (at least 30 min prior to breakfast or other meds). 90 Tablet 3 06/17/2023 Active Zolpidem Tartrate 5 MG Oral Tablet (Ambien)Indicatio ns:Chronic insomnia TAKE 1 TABLET BY MOUTH EVERY DAY AT BEDTIME NEEDED FOR SLEEP 30 Tablet 3 06/23/2023 Active Nitroglycerin 0.4 MG Sublingual Tablet Sublingual (Nitrostat)Indica tions:S/P angioplasty with stent DISSOLVE 1 TABLET UNDER THE TONGUE EVERY 5 MINUTES NEEDED FOR CHEST PAIN. DO NOT EXCEED A TOTAL OF 3 DOSES IN 15 MINUTES 25 Tablet 2 07/12/2023 Active metFORMIN HCl ER 500 MG Oral Tablet Extended Release 24 Hour (Glucophage XR)Indications:Ty pe 2 diabetes mellitus with hemoglobin A1c goal of less than 8.0% (HCC) TAKE ONE TABLET BY MOUTH EVERY MORNING 100 Tablet 0 07/20/2023 Active Sertraline HCl 100 MG Oral Tablet (Zoloft)Indicatio ns:MDD (major depressive disorder), recurrent episode, mild (HCC) Take 1 Tablet by mouth in the morning. 100 Tablet 3 07/20/2023 Active Clopidogrel Bisulfate 75 MG Oral Tablet (pLAVix)Indicatio ns:S/P angioplasty with stent TAKE ONE TABLET BY MOUTH EVERY DAY 90 Tablet 3 08/10/2023 4 Active Simvastatin 80 MG Oral Tablet (Zocor)Indication s:S/P angioplasty with stent TAKE ONE TABLET BY MOUTH AT BEDTIME 90 Tablet 0 09/02/2023 5 Active Losartan Potassium 100 MG Oral Tablet (Cozaar)Indicatio ns:HTN, goal below 140/90 TAKE ONE TABLET BY MOUTH EVERY MORNING 90 Tablet 0 09/02/2023 5 Active Famotidine 40 MG Oral Tablet (Pepcid)Indicatio ns:Gastroesophage al reflux disease without esophagitis TAKE 1 TABLET BY MOUTH EVERY DAY 90 Tablet 0 09/23/2023 Active Famotidine 40 MG Oral Tablet (Pepcid)Indicatio ns:Gastroesophage al reflux disease without esophagitis TAKE 1 TABLET BY MOUTH EVERY DAY 90 Tablet 1 03/24/2023 4 Discontinued documented as of this encounter (statuses as of 10/16/2023) Active Problems Problem Noted Date Diagnosed Date Fatty liver 08/05/2021 Bradycardia 08/04/2019 Atherosclerosis of [place] co ronary artery of [place] heart without angina pectoris 10/03/2018 BASILIA (obstructive sleep apnea) 09/12/2018 RLS (restless legs syndrome) 02/08/2018 Psychophysiologic insomnia 02/08/2018 Type 2 diabetes mellitus wit h hemoglobin A1c goal of less than 8.0% 06/15/2016 Well adult exam 06/09/2016 Overview: 08/04 -aorta 2.8cm stable 2018 start metformin. Considering Shingrix Insomnia--failed rozerem. Consider doxepin/silenor, trazodone. Ambien in past needs PA 02/27 AAA screen-- no aneurysm 2.7cm ectasia, stable. No f/u Needed. DEXA WNL janice 10y 2016 colon WNL janice 10y Hypothyroidism 02/20/2016 Seborrheic keratosis 02/10/2016 BMI 35-39 ISOLATED (SEE ACTUAL BMI) 01/26/2010 Overview: Per Obesity Protocol, #19 Gastroesophageal reflux disease without esophagi tis 10/10/2009 Dyslipidemia, goal LDL below 70 07/29/2009 Overview: Per Lipid Taxonomy. S/P angioplasty with stent 04/13/2007 HTN, goal below 140/90 03/31/2005 documented as of this encounter (statuses as of 10/16/2023) Resolved Problems Problem Noted Date Diagnosed Date Resolved Date Depression with anxiety 02/10/201604/15 Screen for colon cancer 02/10/201601/13 Post-menopause 02/10/2016 01/31/2018 CAD (coronary artery disease) 05/20/2015 05/20/2015 Coronary artery disease invo lving [place] coronary artery without angina pectoris 05/20/2015 10/03/2018 HOARSENESS 10/10/2009 12/19/2019 Overview: Began 2007 Acute. NONALLERGIC RHINITIS 10/10/2009 020 Overview: Acute. EXAMINATION OF PARTICIPANT I N CLINICAL TRIAL- EVENT REGISTRY 05/19/2007 05/21/2008 Overview: Study Titile: Event Registry Project #[id number] PI: Jane Angulo MD Please call [phone] with study related questions EXAMINATION OF PARTICIPANT I N CLINICAL TRIAL: ISAR-REACT 3 05/18/2007 05/21/2008 Overview: ISAR-REACT 3: Prospective, randomized, double-blind, active controlled, multicenter trial of bivalirudin and unfractionated heparin in patients undergoing percutaneous coronary intervention Project #[id number] PI: Eduardo Ansari MD [phone] Electromedical Service Engineer: Brittney Nascimento RN [phone] Abdominal aortic aneurysm 04/13/2007 EXAMINATION OF PARTICIPANT I N CLINICAL TRIAL: Genomic Markers for Patients with Cardiovascular Disease 03/20/2007 11/28/2009 Overview: Renamed Per Clinical Trials Billing Project. Study Title: Genomic Markers for Patients with Cardiovascular Disease Project # [id number] GENOMICS CARDIO RESEARCH OTHER*[id number] 03/20/2007 09/21/2016 Overview: Renamed Per Clinical Trials Billing Project. Study Title: Genomic Markers for Patients with Cardiovascular Disease Project # [id number] ADVANCE DIRECTIVE INFORMATION 03/24/2006 12/19/2019 Overview: Information offered-patient declined. Historical. Special screening for malign ant neoplasms, colon 03/04/2006 08/20/2008 Overview: Colonoscopy 03/03/06--diverticulosis, tortuous colon, repeat 10 years ACQUIRED HYPOTHYROID NEC 03/31/200503/2016 Menopause 03/31/2005 08/20/2008 Dyslipidemia, goal to be determined 03/31/2005 07/29/2009 Overview: Per Lipid Taxonomy. documented as of this encounter (statuses as of 10/16/2023) Immunizations Name Administration Dates Next Due COVID-19 mRNA, LNP-s, No Pre serve, 2-Dose Series (Moderna) 10/05/2020,09/04/2020 COVID-19, mRNA, LNP-s, PF, B ooster, 100mcg/0.5mg (Moderna) 02/22/2022,06/23/2021 H1N1 2009 Influenza, IM 08/18/2009 Pneumococcal Conjugate Vacc, 13 Valent (Prevnar) 06/09/2016 Pneumococcal Polysaccharide PPV23 (Pneumovax) 06/22/2018,05/25/2007 RSV Vac., Bivalent, Perfusio n F, Pf,0.5 Ml (Abrysvo) 06/23/2023 Season Influenza, Quad, PF, Adjuvanted, 65+ Yrs, IM (FLUAD) 05/20/2020 Seasonal Influenza, PF, 6 M & above, IM , (FluLaval or Fluzone) 06/05/2018 Seasonal Influenza, Quadriva lent Hd (Fluzone Hd) 05/24/2023,05/14/2022,06/01/2021 Seasonal Influenza, Quadriva lent, No Preserve, IM 04/25/2017,06/07/2016 Seasonal Influenza, Split, I IV3, With Preserve, Inj 05/20/2015,05/22/2014,05/30/2013,05/12,05/18/2011,05/29/2010,05/19/2009 ,05/31/2008,05/25/2007,06/02/2006,05/16,05/29/2003 Seasonal Influenza, Trivalen t, Adjuvanted, 65+ yrs 05/21/2019 TDAP (age 10 and older)(Boostrix) 06/29/2019 TDAP (age 11 and older)(Adacel) 03/12/2009 Zoster Vaccine Recombinant (Shingrix) 05/20/2022 ,11/25/2021 documented as of this encounter Social History Tobacco Use Types Packs/Day Years Used Date Smoking Tobacco: Former Cigarettes 1 33 0 11/04/1969 - 11/04/2002 Smokeless Tobacco: Never Comments:no passive smoke ex posures Alcohol Use Standard Drinks/Week Comments No 0 (1 standard drink = 0.6 oz pur e alcohol) PHQ-2 Answer Date Recorded PHQ Adult Total Score 0 12/22/2022 Hunger Vital Sign Answer Date Recorded Within the past 12 months, y ou worried that your food would run out before you got the money to buy more. Never true 12/23/19 Within the past 12 months, t he food you bought just didn't last and you didn't have money to get more. Never true 12/22/2022 Sex and Gender Information Value Date Recorded Sex Assigned at Female 06/18/2022 9:43 AM EDT Gender Identity Female 06/18/2022 9:43 AM EDT Sexual Orientation Straight 06/18/2022 9: 43 AM EDT Job Start Date Occupation Industry Not on file Not on file Not on file documented as of this encounter Miscellaneous Notes * Telephone Encounter - Mitali Weiner cargo service supervisor - 10/16/2023 11:23 AM EST Received message from [facility] regarding patient needing labs. Placed call to patient to advise. Pt was agreeable to have labs drawn but would prefer to walk-in at their convenience. Thank you for your assistance Mitali Weiner Telephone Switchboard Operator II [facility] ([facility]) 10/16/2023,11:23 AM * Telephone Encounter - Yamel Del Angel [facility] - 09/23/2023 6:58 AM ESTSigned Prescriptions: Disp Refills Famotidine 40 MG Oral Tablet (Pepcid) 90 Tab*0 Sig: TAKE 1 TABLET BY MOUTH EVERY DAYAuthorizing Provider: BE STRICKLAND User: YAMEL DEL ANGEL-------- * Telephone Encounter - Yamel Del Angel RPh - 09/23/2023 6:56 AM EST Provided 90 days supply with 0 refill(s) until upcoming appointment. Per refill protocol patient should have BMP and other labs on file within past year. Reviewed AMP report, Care Gaps/Health Maintenance, medications list, and for any routine labs typically ordered for this patient. Lab orders placed. Please contact patient to advise of labs ordered for blood draw. Recommend patient to fast if able for labs. Patient may still have water and regular medications. Advise to obtain labs before her scheduled office visit 12/28/2023. Thank You, Yamel Del Angel [facility] Clinical Pharmacist [facility] ([facility] (formerly [facility]) [phone] 09/23/2023, 6:56 AM documented in this encounter Plan of Treatment Upcoming Encounters Date Type Department Care Team (Late st Contact Info) Description 12/28/2023 9:20 AM EDT Office Visit Family Practice [facility] [address] [address] Be Strickland MD [address] [place] [address] Scheduled Procedures Name Priority Associated Diagnoses Date/Ti me COLONOSCOPY FLEXIBLE PROXIMAL DIAGNOSTIC Recall Colon cancer screening Health Maintenance Due Date Last Done Comments Cologuard 1995 Fecal Occult Blood Test 1995 Sigmoidoscopy 1995 Diabetic Eye Exam 05/29/2022 05/29/2021 HbA1c 02/27/2023 08/30/2022, 11/0 11/2021, 11/25/2021, Additional history exists DXA Scan 03/01/2023 03/01/2016 COVID-19 Vaccine ( season) 2023 02/22/2022, 06/23/2021, 10/05/2020, Additional history exists GFR 08/30/2023 08/30/2022, 11/2021, 06/23/2021, Additional history exists Diabetic Foot Exam 09/14/2023 09/14/2022, 0 11/25/2021, 06/18/2020 Mammogram 09/30/2023 09/30/2022, 09/15, 07/24/2021, Additional history exists TSH 11/05/2023 11/04/2022, 08/15, 06/18/2022, Additional history exists Depression Screening 12/23/2023 12/22/2022 Albumin/Creatinine Ratio 07/04/2024 023, 06/18/2022, 06/23/2021, Additional history exists Colonoscopy 03/18/2026 03/18/2016, 11/2015, 03/03/2006 Colorectal Cancer Screening 03/18/2026 DTaP,Tdap,and Td Vaccines (3 - Td or Tdap) 06/29/2029 06/29/2019, 03/12/2009 Pneumococcal Vaccine: 65+ Years Completed 06/22/2018, 06/09/2016, 05/25/2007 Zoster Vaccines Completed 05/20/2022, 11/25/2021 Influenza Vaccine (FLU shot) Completed 05/2023, 05/14/2022, 06/01/2021, Additional history exists GARDASIL-HPV IMMUNIZATION SERIES Aged Out No longer eligible based on patient's age to complete this topic Hepatitis B Aged Out No longer eligi ble based on patient's age to complete this topic MENINGOCOCCAL (MENACTRA/MENVEO) Aged Out No longer eligible based on patient's age to complete this topic documented as of this encounter Medical Devices Implanted Type Area Electrical Technology Instructor Device Identifier Shelf Expiration Date Model / Serial / Lot Mx60 Intraoccular Lens Posterior Chamber Implanted:Qty: 1 on 01/02/2014 at OR [facility] Tissue - Non Human Right: Eye 11/12/2014 [id number] / [id number] / [id number] Lens 17.5 Mx60 - [id number] - [id number] Implanted:Qty: 1 on 12/31/2015 by Rodney Enriquez MD at OR [facility] Left: Eye [employer] : SURGICAL 04/14/2017 MX60-17.5 / [id number] / [id number] documented as of this encounter Visit Diagnoses Diagnosis Gastroesophageal reflux disease without esophagitis Esophageal reflux documented in this encounter Advance Directives Latest Code Status on File Code Status Date Activated Date Inactivated Comments Full Code 12/31/2015 9:14 AM 12/31/2015 2:03 PM This order reflects the patients wishes and were consensually agreed upon. Code Status History Code Status Date Activated Date Inactivated Comments Full Code 12/31/2015 7:26 AM 12/31/2015 9:14 AM This order reflects the patients wishes and were consensually agreed upon. Full Code 01/02/2014 7:15 AM 01/02/2014 1:18 PM This order reflects the patients wishes and were consensually agreed upon. Care Teams Wood Block Artist Relationship Specialty Start Date End Date Be Strickland MD [address] [facility] [place] [id number] PCP - General Family Medicine 06/09/16 documented as of this encounter
--- OUTSIDE RECORDS SUMMARY | 2023-10-19 00:47 | External Medical Summary | Summary of Care ---
Author Name Unknown Organization [facility] Address [address] [facility] [address] Phone [phone] Care Team Providers Care Youth Accommodation Support Worker Name Role Phone Be Strickland MD Primary Care Provider + Reason for Visit * Reason Comments Medication Refill Encounter Details Date Type Department Care Team (Late st Contact Info) Description 08/31/2023 Refill Family Practice [facility] [address] [place] [address] Be Strickland MD [address] [place] [address] S/P angioplasty with stent; HTN, goal below 140/90 Allergies Active Allergy Reactions Criticality Noted Date Comments Carlos Inhibitors 09/08/2004 cough Hydrodiuril 06/30/2007 Itchy eyes and throat, also hoarseness Latex 03/20/2007 Band-aids cause redness/rash at site Nitrofurantoin 08/03/2021 Headache, chest tightness, dizziness Penicillins 04/05/2003 hives, rash Sulfa Antibiotics 04/05/2003 rash Adhesive Tape 03/19/2007 rash documented as of this encounter (statuses as of 09/25/2023) Medications Medication Sig Dispensed Refills Start Date End Date Status ASPIRIN 81 MG PO TABS 1 TABLET DAILY 0 Active FISH OIL 1200 MG PO CAPSIndications: Edema 2 daily 0 0 10/20/2007 Active metroNIDAZOLE 0.75 % External Gel (Metrogel)Indica tions:Rosacea Apply topically to affected area 2 times a day. Apply to affected area 45 g 11 09/14/2022 Active Metoprolol Succinate ER 25 MG Oral Tablet Extended Release 24 Hour (toPROL XL)Indications:D yslipidemia, goal LDL below 100,S/P angioplasty with stent,Abdominal aortic aneurysm (HCC),HTN, goal below 140/90 TAKE ONE-HALF TABLET BY MOUTH EVERY MORNING 50 Tablet 3 02/04/2023 02/04/20 24 Active Levothyroxine Sodium 100 MCG Oral Tablet (Levoxyl)Indicat ions:Hypothyroid ism, unspecified type Take 1 Tablet by mouth in the morning. (at least 30 min prior to breakfast or other meds). 90 Tablet 3 06/17/2023 Active Zolpidem Tartrate 5 MG Oral Tablet (Ambien)Indicati ons:Chronic insomnia TAKE 1 TABLET BY MOUTH EVERY DAY AT BEDTIME NEEDED FOR SLEEP 30 Tablet 3 06/23/2023 Active Nitroglycerin 0.4 MG Sublingual Tablet Sublingual (Nitrostat)Indic ations:S/P angioplasty with stent DISSOLVE 1 TABLET UNDER THE TONGUE EVERY 5 MINUTES NEEDED FOR CHEST PAIN. DO NOT EXCEED A TOTAL OF 3 DOSES IN 15 MINUTES 25 Tablet 2 07/12/2023 Active metFORMIN HCl ER 500 MG Oral Tablet Extended Release 24 Hour (Glucophage XR)Indications:T ype 2 diabetes mellitus with hemoglobin A1c goal of less than 8.0% ([facility]) TAKE ONE TABLET BY MOUTH EVERY MORNING 100 Tablet 0 07/20/2023 Active Sertraline HCl 100 MG Oral Tablet (Zoloft)Indicati ons:MDD (major depressive disorder), recurrent episode, mild (HCC) Take 1 Tablet by mouth in the morning. 100 Tablet 3 07/20/2023 Active Clopidogrel Bisulfate 75 MG Oral Tablet (pLAVix)Indicati ons:S/P angioplasty with stent TAKE ONE TABLET BY MOUTH EVERY DAY 90 Tablet 3 08/10/2023 08/09/20 24 Active Simvastatin 80 MG Oral Tablet (Zocor)Indicatio ns:S/P angioplasty with stent TAKE ONE TABLET BY MOUTH AT BEDTIME 90 Tablet 0 09/02/2023 09/01/19 25 Active Losartan Potassium 100 MG Oral Tablet (Cozaar)Indicati ons:HTN, goal below 140/90 TAKE ONE TABLET BY MOUTH EVERY MORNING 90 Tablet 0 09/02/2023 09/01/19 25 Active Losartan Potassium 100 MG Oral Tablet (Cozaar)Indicati ons:HTN, goal below 140/90 TAKE ONE TABLET BY MOUTH EVERY MORNING 90 Tablet 3 09/14/2022 08/31/19 24 Discontinued(Ref ill) Simvastatin 80 MG Oral Tablet (Zocor)Indicatio ns:S/P angioplasty with stent TAKE ONE TABLET BY MOUTH AT BEDTIME 90 Tablet 3 08/19/2022 08/31/19 24 Discontinued(Ref ill) Famotidine 40 MG Oral Tablet (Pepcid)Indicati ons:Gastroesopha geal reflux disease without esophagitis TAKE 1 TABLET BY MOUTH EVERY DAY 90 Tablet 1 03/24/2023 09/23/19 24 Discontinued documented as of this encounter (statuses as of 09/25/2023) Active Problems Problem Noted Date Diagnosed Date Fatty liver 08/05/2021 Bradycardia 08/04/2019 Atherosclerosis of [place] co ronary artery of [place] heart without angina pectoris 10/03/2018 BASILIA (obstructive [...] as of this encounter (statuses as of 09/25/2023) Resolved Problems Problem Noted Date Diagnosed Date Resolved Date Depression with anxiety 02/10/201604/15 Screen for colon cancer 02/10/201601/13 Post-menopause 02/10/2016 01/31/2018 CAD (coronary artery disease) 05/20/2015 05/20/2015 Coronary artery disease invo lving [place] coronary artery without angina pectoris 05/20/2015 10/03/2018 HOARSENESS 10/10/2009 12/19/2019 Overview: Began 2007 Acute. NONALLERGIC RHINITIS 10/10/2009 020 Overview: Acute. EXAMINATION OF PARTICIPANT I N CLINICAL TRIAL- EVENT REGISTRY 05/19/2007 05/21/2008 Overview: Study Titile: Event Registry Project #[id number] PI: Jane Angulo MD Please call [phone] with study related questions EXAMINATION OF PARTICIPANT I N CLINICAL TRIAL: ISAR-REACT 3 05/18/2007 05/21/2008 Overview: ISAR-REACT 3: Prospective, randomized, double-blind, active controlled, multicenter trial of bivalirudin and unfractionated heparin in patients undergoing percutaneous coronary intervention Project #[id number] PI: Eduardo Ansari MD [phone] Commercial Real Estate Sales Manager: Brittney Nascimento RN [phone] Abdominal aortic aneurysm 04/13/2007 EXAMINATION OF PARTICIPANT I N CLINICAL TRIAL: Genomic Markers for Patients with Cardiovascular Disease 03/20/2007 11/28/2009 Overview: Renamed Per Clinical Trials Billing Project. Study Title: Genomic Markers for Patients with Cardiovascular Disease Project # [id number] GENOMICS CARDIO RESEARCH OTHER*[id number] 03/20/2007 09/21/2016 Overview: Renamed Per Clinical Trials Billing Project. Study Title: Genomic Markers for Patients with Cardiovascular Disease Project # [id number] ADVANCE DIRECTIVE INFORMATION 03/24/2006 12/19/2019 Overview: Information offered-patient declined. Historical. Special screening for malign ant neoplasms, colon 03/04/2006 08/20/2008 Overview: Colonoscopy 03/03/06--diverticulosis, tortuous colon, repeat 10 years ACQUIRED HYPOTHYROID NEC 03/31/200503/2016 Menopause 03/31/2005 08/20/2008 Dyslipidemia, goal to be determined 03/31/2005 07/29/2009 Overview: Per Lipid Taxonomy. documented as of this encounter (statuses as of 09/25/2023) Immunizations Name Administration Dates Next Due COVID-19 [...] Split, I IV3, With Preserve, Inj 05/20/2015,05/22/2014,05/30/2013,05/12,05/18/2011,05/29/2010,05/19/2009 ,05/31/2008,05/25/2007,06/02/2006 Seasonal Influenza, Trivalen t, Adjuvanted, 65+ yrs 05/21/2019 TDAP (age 10 and older)(Boostrix) 06/29/2019 TDAP (age 11 and older)(Adacel) 03/12/2009 Zoster Vaccine Recombinant (Shingrix) 05/20/2022 ,11/25/2021 documented as of this encounter Social History Tobacco Use Types Packs/Day Years Used Date Smoking Tobacco: Former Cigarettes 1 33 Q uit: 11/04/2002 Smokeless Tobacco: Never Comments:no passive smoke [...] money to buy more. Never true 12/23/19 23 Within the past 12 months, t he [...] Notes * Telephone Encounter - Mitali Weiner PHARM Tech - 09/25/2023 12:34 PM EST Received message from [facility] regarding patient needing labs. Placed call to patient to advise. Pt was agreeable to set up lab appointment. Patient scheduled for 10/03/2023. Thank you for your assistance Mitali Weiner Home Health Provider II [facility] ([facility]) (Formerly Telepharmacy) 09/25/2023,12:34 PM * Telephone Encounter - Jake Randolph [facility] - 09/02/2023 7:[address] Strickland, Please disregard. Routed in error [facility]: please contact patient for labs Thanks, Erik Randolph PharmD Clinical Pharmacist [facility] ([facility]) (Formerly [employer]) [phone] 09/02/2023 7:42 AM * Telephone Encounter - Jake Randolph RPh - 09/02/2023 7:41 AM ESTSigned Prescriptions: Disp Refills Simvastatin 80 MG Oral Tablet (Zocor) 90 Tab*0 Sig: TAKE ONE TABLET BY MOUTH AT BEDTIME Authorizing Provider: BE STRICKLAND Ordering User: JAKE RANDOLPH Losartan Potassium 100 MG Oral Tablet (Coz*90 Tab*0 Sig: TAKE ONE TABLET BY MOUTH EVERY MORNING Authorizing Provider: BE STRICKLAND Ordering User: JAKE RANDOLPH * Telephone Encounter - Jake Randolph RPh - 09/02/2023 7:40 AM EST Provided 90 days supply with 0 refill(s). Per refill protocol patient should have updated labs on file within past year. Reviewed AMP report, Care Gaps/Health Maintenance, medications list, and for any routine labs typically ordered for this patient. Lab orders placed. Please contact patient to advise of labs ordered for blood draw AND URINE specimen (patient will have to be able to void to provide sample). Recommend patient to fast if able for labs. Patient may still have water and regular medications. Advise to obtain labs before requesting the next refill. Thanks, Erik Randolph PharmD Clinical Pharmacist [facility] ([facility]) (Formerly [employer]) [phone] 09/02/2023 7:40 AM * Telephone Encounter - Wally Castro - 08/31/2023 8:52 PM ESTPending Prescriptions: Disp Refills Simvastatin 80 MG Oral Tablet (Zocor) 90 Tab*3 Sig: TAKE ONE TABLET BY MOUTH AT BEDTIME Losartan Potassium 100 MG Oral Tablet (Coz*90 Tab*3 Sig: TAKE ONE TABLET BYMOUTH EVERY MORNING documented in this encounter Plan of Treatment Upcoming Encounters Date Type Department Care Team (Late st Contact Info) Description 10/03/2023 9:00 AM EST Laboratory Laboratory, [facility] [address] [place] [phone] [facility] [address] [facility] [place] [address] 12/28/2023 9:20 AM EDT Office Visit Family Practice [facility] [address] [place] [address] Be Strickland MD [address] [facility] [place] [address] Scheduled Procedures Name Priority Associated Diagnoses Date/Ti me COLONOSCOPY FLEXIBLE PROXIMAL DIAGNOSTIC Recall Colon cancer screening Health Maintenance Due Date Last Done Comments Cologuard 1995 Fecal Occult Blood Test 1995 Sigmoidoscopy 1995 Hepatitis B (1 of 3 - Risk 3-dose series) 2010 Diabetic Eye Exam 05/29/2022 05/29/2021 HbA1c 02/27/2023 [...] this encounter Medical Devices Implanted Type Area Rd Project Manager Device Identifier Shelf Expiration Date Model / Serial / Lot Mx60 Intraoccular Lens Posterior Chamber Implanted:Qty: 1 on 01/02/2014 at OR [facility] Tissue - Non Human Right: Eye 11/12/2014 [id number] / [id number] / [id number] Lens 17.5 Mx60 - [id number] - [id number] Implanted:Qty: 1 on 12/31/2015 by Rodney Enriquez MD at OR [facility] Left: Eye [employer] LOMB : SURGICAL 04/14/2017 MX60-17.5 / [id number] / [id number] documented as of this encounter Visit Diagnoses Diagnosis S/P angioplasty with stent Postsurgical percutaneous transluminal coronary angioplasty status HTN, goal below 140/90 Unspecified essential hypertension documented in this encounter Advance Directives Latest [...] and were consensually agreed upon. Care Teams Youth Accommodation Support Worker Relationship Specialty Start Date End Date Be Strickland MD [address] [facility] [place] [address] PCP - General Family Medicine 06/09/16 documented as of this encounter
--- OUTSIDE RECORDS SUMMARY | 2023-10-19 00:47 | External Medical Summary | Summary of Care ---
Author Name Unknown Organization [facility] Address [address] [address] Phone [phone] Care Team Providers Care Log Haul Operator Name Role Phone Be Strickland MD Primary Care Provider + Reason for Visit * Reason Comments eRx-Medication Refill Encounter Details Date Type Department Care Team (Late st Contact Info) Description 09/22/2023 Refill Family Practice [facility] [address] [facility] [place] [address] Be Strickland [facility] [address] [facility] [id number] Gastroesophageal reflux disease without esophagitis Allergies Active Allergy Reactions Criticality Noted Date Comments Carlos Inhibitors 09/08/2004 cough Hydrodiuril 06/30/2007 Itchy eyes and throat, also hoarseness Latex 03/20/2007 Band-aids cause redness/rash at site Nitrofurantoin 08/03/2021 Headache, chest tightness, dizziness Penicillins 04/05/2003 hives, rash Sulfa Antibiotics 04/05/2003 rash Adhesive Tape 03/19/2007 rash documented as of this encounter (statuses as of 09/23/2023) Medications Medication Sig Dispensed Refills Start Date [...] as of this encounter (statuses as of 09/23/2023) Active Problems Problem Noted Date Diagnosed Date Fatty liver 08/05/2021 Bradycardia 08/04/2019 Atherosclerosis of [place] co ronary artery of [place] heart without angina pectoris 10/03/2018 BASILIA (obstructive [...] as of this encounter (statuses as of 09/23/2023) Resolved Problems Problem Noted Date Diagnosed Date Resolved Date Depression with anxiety 02/10/201604/15 Screen for colon cancer 02/10/201601/13 Post-menopause 02/10/2016 01/31/2018 CAD (coronary artery disease) 05/20/2015 05/20/2015 Coronary artery disease invo lving [place] coronary artery without angina pectoris 05/20/2015 10/03/2018 HOARSENESS 10/10/2009 12/19/2019 Overview: Began 2007 Acute. NONALLERGIC RHINITIS 10/10/2009 020 Overview: Acute. EXAMINATION OF PARTICIPANT I N CLINICAL TRIAL- EVENT REGISTRY 05/19/2007 05/21/2008 Overview: Study Titile: Event Registry Project #[id number] PI: Jane Angulo MD Please call [phone] with study related questions EXAMINATION OF PARTICIPANT I N CLINICAL TRIAL: ISAR-REACT 3 05/18/2007 05/21/2008 Overview: ISAR-REACT 3: Prospective, randomized, double-blind, active controlled, multicenter trial of bivalirudin and unfractionated heparin in patients undergoing percutaneous coronary intervention Project #[id number] PI: Eduardo Ansari MD [phone] Instrumentation Technologist: Brittney Nascimento RN [phone] Abdominal aortic aneurysm 04/13/2007 EXAMINATION OF PARTICIPANT I N CLINICAL TRIAL: Genomic Markers for Patients with Cardiovascular Disease 03/20/2007 11/28/2009 Overview: Renamed Per Clinical Trials Billing Project. Study Title: Genomic Markers for Patients with Cardiovascular Disease Project # [id number] GENOMICS CARDIO RESEARCH OTHER*[id number] 03/20/2007 09/21/2016 Overview: Renamed Per Clinical Trials Billing Project. Study Title: Genomic Markers for Patients with Cardiovascular Disease Project # [id number] ADVANCE DIRECTIVE INFORMATION 03/24/2006 12/19/2019 Overview: Information offered-patient declined. Historical. Special screening for malign ant neoplasms, colon 03/04/2006 08/20/2008 Overview: Colonoscopy 03/03/06--diverticulosis, tortuous colon, repeat 10 years ACQUIRED HYPOTHYROID NEC 03/31/200503/2016 Menopause 03/31/2005 08/20/2008 Dyslipidemia, goal to be determined 03/31/2005 07/29/2009 Overview: Per Lipid Taxonomy. documented as of this encounter (statuses as of 09/23/2023) Immunizations Name Administration Dates Next Due COVID-19 [...] encounter Miscellaneous Notes * Telephone Encounter - Yamel Del Angel RPh - 09/23/2023 6:58 AM ESTSigned Prescriptions: Disp [...] visit 12/28/2023. Thank You, Yamel Del Angel [facility] Clinical Pharmacist Centralized Clinical Pharmacy Services ([facility]) (formerly Telepharmacy) [phone] 09/23/2023, 6:56 AM documented in this encounter Plan of Treatment Upcoming Encounters Date Type Department Care Team (Late st Contact Info) Description 12/28/2023 9:20 AM EDT Office Visit [facility] [address] [place] [address] Be Strickland MD [address] [place] [address] Scheduled Procedures Name Priority Associated Diagnoses Date/Ti me COLONOSCOPY FLEXIBLE PROXIMAL DIAGNOSTIC Recall Colon cancer screening Health Maintenance Due Date Last Done Comments Cologuard 1995 Fecal Occult Blood Test 1995 Sigmoidoscopy 1995 Hepatitis B (1 of 3 - Risk 3-dose series) 2010 Diabetic Eye Exam 05/29/2022 05/29/2021 HbA1c 02/27/2023 08/30/2022, 11/2021, 11/25/2021, Additional history exists DXA Scan 03/01/2023 03/01/2016 COVID-19 Vaccine ( season) 2023 02/22/2022, 06/23/2021, 10/05/2020, Additional history exists GFR 08/30/2023 08/30/2022, 1111/2021, 06/23/2021, Additional history exists Diabetic Foot Exam 09/14/2023 09/14/2022, 0 11/25/2021, 06/18/2020 Mammogram 09/30/2023 09/30/2022, 0201/2023, 07/24/2021, Additional history exists TSH 11/05/2023 11/04/2022, 08/15, 06/18/2022, Additional history exists Depression Screening 12/23/2023 12/22/2022 Albumin/Creatinine Ratio 07/04/2024 023, 06/18/2022, 06/23/2021, Additional history exists Colonoscopy 03/18/2026 03/18/2016, 0811/2015, 03/03/2006 Colorectal Cancer Screening 03/18/2026 DTaP,Tdap,and Td [...] this encounter Medical Devices Implanted Type Area Cash Office Worker Device Identifier Shelf Expiration Date Model / Serial / Lot Mx60 Intraoccular Lens Posterior Chamber Implanted:Qty: 1 on 01/02/2014 at OR [facility] Tissue - Non Human Right: Eye 11/12/2014 [id number] / [id number] / [id number] Lens 17.5 Mx60 - [id number] - [id number] Implanted:Qty: 1 on 12/31/2015 by Rodney Enriquez MD at OR [facility] Left: Eye BAUSCH [employer] LOMB : SURGICAL 04/14/2017 MX60-17.5 / [id number] / [id number] documented as of this encounter Visit Diagnoses [...] and were consensually agreed upon. Care Teams Log Haul Operator Relationship Specialty Start Date End Date Be Strickland MD [address] [place] [address] PCP - General Family Medicine 06/09/16 documented as of this encounter
--- OUTSIDE RECORDS SUMMARY | 2023-10-19 00:47 | External Medical Summary | Summary of Care ---
Author Name Unknown Organization [facility] Address [address] [address] Phone [phone] Care Team Providers Care Store Operations Associate Name Role Phone Be Strickland MD Primary Care Provider + Reason for Visit * Reason Comments Medication Refill Encounter Details Date Type Department Care Team (Late st Contact Info) Description 08/10/2023 Refill Family Practice [facility] [address] [place] [address] Be Strickland MD [address] [place] [address] S/P angioplasty with stent Allergies Active Allergy Reactions Criticality Noted Date Comments Carlos Inhibitors 09/08/2004 cough Hydrodiuril 06/30/2007 Itchy eyes and throat, also hoarseness Latex 03/20/2007 Band-aids cause redness/rash at site Nitrofurantoin 08/03/2021 Headache, chest tightness, dizziness Penicillins 04/05/2003 hives, rash Sulfa Antibiotics 04/05/2003 rash Adhesive Tape 03/19/2007 rash documented as of this encounter (statuses as of 08/10/2023) Medications Medication Sig Dispensed Refills Start Date [...] MOUTH EVERY MORNING 50 Tablet 3 02/04/2023 02/04/2024 Active Losartan Potassium 100 MG Oral Tablet (Cozaar)Indicatio ns:HTN, goal below 140/90 TAKE ONE TABLET BY MOUTH EVERY MORNING 90 Tablet 3 09/14/2022 09/14/2023 Active Simvastatin 80 MG Oral Tablet (Zocor)Indication s:S/P angioplasty with stent TAKE ONE TABLET BY MOUTH AT BEDTIME 90 Tablet 3 08/19/2022 09/07/2023 Active Famotidine 40 MG Oral Tablet (Pepcid)Indicatio ns:Gastroesophage al reflux disease without esophagitis TAKE 1 TABLET BY MOUTH EVERY DAY 90 Tablet 1 03/24/2023 Active Levothyroxine Sodium 100 MCG Oral Tablet [...] MOUTH EVERY DAY 90 Tablet 3 08/10/2023 08/09/2024 Active Clopidogrel Bisulfate 75 MG Oral Tablet (pLAVix)Indicatio ns:S/P angioplasty with stent TAKE ONE TABLET BY MOUTH EVERY DAY 90 Tablet 3 08/04/2022 08/10/2023 Discontinue d(Refill) documented as of this encounter (statuses as of 08/10/2023) Active Problems Problem Noted Date Diagnosed Date Fatty liver 08/05/2021 Bradycardia 08/04/2019 Atherosclerosis of [place] ronary artery of [place] heart without angina pectoris 10/03/2018 BASILIA (obstructive [...] as of this encounter (statuses as of 08/10/2023) Resolved Problems Problem Noted Date Diagnosed Date Resolved Date Depression with anxiety 02/10/201604/15 Screen for colon cancer 02/10/201601/13 Post-menopause 02/10/2016 01/31/2018 CAD (coronary artery disease) 05/20/2015 05/20/2015 Coronary artery disease invo lving [place] coronary artery without angina pectoris 05/20/2015 10/03/2018 HOARSENESS 10/10/2009 12/19/2019 Overview: Began 2007 Acute. NONALLERGIC RHINITIS 10/10/2009 020 Overview: Acute. EXAMINATION OF PARTICIPANT I N CLINICAL TRIAL- EVENT REGISTRY 05/19/2007 05/21/2008 Overview: Study Titile: Event Registry Project #[id number] PI: Jane Angulo MD Please call [phone] with study related questions EXAMINATION OF PARTICIPANT I N CLINICAL TRIAL: ISAR-REACT 3 05/18/2007 05/21/2008 Overview: ISAR-REACT 3: Prospective, randomized, double-blind, active controlled, multicenter trial of bivalirudin and unfractionated heparin in patients undergoing percutaneous coronary intervention Project #[id number] PI: Eduardo Ansari MD [phone] Heavy Equipment Plumbing Supervisor: Brittney Nascimento RN [phone] Abdominal aortic aneurysm 04/13/2007 EXAMINATION OF PARTICIPANT I N CLINICAL TRIAL: Genomic Markers for Patients with Cardiovascular Disease 03/20/2007 11/28/2009 Overview: Renamed Per Clinical Trials Billing Project. Study Title: Genomic Markers for Patients with Cardiovascular Disease Project # [id number] GENOMICS CARDIO RESEARCH OTHER*[id number] 03/20/2007 09/21/2016 Overview: Renamed Per Clinical Trials Billing Project. Study Title: Genomic Markers for Patients with Cardiovascular Disease Project # [id number] ADVANCE DIRECTIVE INFORMATION 03/24/2006 12/19/2019 Overview: Information offered-patient declined. Historical. Special screening for malign ant neoplasms, colon 03/04/2006 08/20/2008 Overview: Colonoscopy 03/03/06--diverticulosis, tortuous colon, repeat 10 years ACQUIRED HYPOTHYROID NEC 03/31/200503/2016 Menopause 03/31/2005 08/20/2008 Dyslipidemia, goal to be determined 03/31/2005 07/29/2009 Overview: Per Lipid Taxonomy. documented as of this encounter (statuses as of 08/10/2023) Immunizations Name Administration Dates Next Due COVID-19 [...] encounter Miscellaneous Notes * Telephone Encounter - Sravan Vincent RPh - 08/10/2023 6:47 PM ESTSigned Prescriptions: Disp Refills Clopidogrel Bisulfate 75 MG Oral Tablet (p*90 Tab*3 Sig: TAKE ONE TABLET BY MOUTH EVERY DAYAuthorizing Provider: BE STRICKLAND User: SRAVAN VINCENT documented in this encounter Plan of Treatment Upcoming Encounters Date Type Department Care Team (Late st Contact Info) Description 12/28/2023 9:20 AM EDT Office Visit Family Practice [facility] [address] [place] [address] Be Strickland MD [address] [place] [address] Scheduled Procedures Name Priority Associated Diagnoses Date/Ti [...] 10/05/2020, Additional history exists GFR 08/30/2023 08/30/2022, 110 11/2021, 06/23/2021, Additional history exists Diabetic Foot Exam 09/14/2023 09/14/2022, 0 11/25/2021, 06/18/2020 Mammogram 09/30/2023 09/30/2022, 07/15, 07/23/2020, Additional history exists TSH 11/05/2023 11/04/2022, 08/15, 06/18/2022, Additional history exists Depression Screening 12/23/2023 12/22/2022 Albumin/Creatinine Ratio 07/04/2024 023, 06/18/2022, 06/23/2021, Additional history exists Colonoscopy 03/18/2026 03/18/2016, 08/0 11/2015, 03/03/2006 Colorectal Cancer Screening 03/18/2026 DTaP,Tdap,and [...] this encounter Medical Devices Implanted Type Area Halal Butcher Device Identifier Shelf Expiration Date Model / Serial / Lot Mx60 Intraoccular Lens Posterior Chamber Implanted:Qty: 1 on 01/02/2014 at OR [facility] Tissue - Non Human Right: Eye 11/12/2014 [id number] / [id number] / [id number] Lens 17.5 Mx60 - [id number] - [id number] Implanted:Qty: 1 on 12/31/2015 by Rodney Enriquez MD at OR [facility] Left: Eye BAUSCH [employer] LOMB : SURGICAL 04/14/2017 MX60-17.5 / [id number] / [id number] documented as of this encounter Visit Diagnoses Diagnosis S/P angioplasty with stent Postsurgical percutaneous transluminal coronary angioplasty status documented in this encounter Advance Directives Latest [...] and were consensually agreed upon. Care Teams Store Operations Associate Relationship Specialty Start Date End Date Be Strickland MD [address] [facility] [place] [address] PCP - General Family Medicine 06/09/16 documented as of this encounter
--- OUTSIDE RECORDS SUMMARY | 2023-10-19 00:48 | External Medical Summary | Summary of Care ---
Author Name Unknown Organization [facility] Address [address] [facility] [address] Phone [phone] Care Team Providers Care Linen Room Supervisor Name Role Phone Be Strickland MD Primary Care Provider + Reason for Visit * Reason Comments eRx-Medication Refill Encounter Details Date Type Department Care Team (Late st Contact Info) Description 06/22/2023 Refill Family Practice [facility] [address] [facility] [place] [address] Be Strickland MD [address] [facility] [place] [phone] Chronic insomnia Allergies Active Allergy Reactions Criticality Noted Date Comments Carlos Inhibitors 09/08/2004 cough Hydrodiuril 06/30/2007 Itchy eyes and throat, also hoarseness Latex 03/20/2007 Band-aids cause redness/rash at site Nitrofurantoin 08/03/2021 Headache, chest tightness, dizziness Penicillins 04/05/2003 hives, rash Sulfa Antibiotics 04/05/2003 rash Adhesive Tape 03/19/2007 rash documented as of this encounter (statuses as of 06/23/2023) Medications Medication Sig Dispensed Refills Start Date End Date Status ASPIRIN 81 MG PO TABS 1 TABLET DAILY 0 Active FISH OIL 1200 MG PO CAPSIndications:E panda 2 daily 0 0 10/20/2007 Active Nitroglycerin 0.4 MG Sublingual Tablet Sublingual (Nitrostat)Indica tions:S/P angioplasty with stent DISSOLVE 1 TABLET UNDER THE TONGUE EVERY 5 MINUTES NEEDED FOR CHEST PAIN. DO NOT EXCEED A TOTAL OF 3 DOSES IN 15 MINUTES 25 Tablet 2 05/25/2022 Active metroNIDAZOLE 0.75 % External Gel (Metrogel)Indicat [...] MORNING 50 Tablet 3 02/04/2023 4 Active Losartan Potassium 100 MG Oral Tablet (Cozaar)Indicatio ns:HTN, goal below 140/90 TAKE ONE TABLET BY MOUTH EVERY MORNING 90 Tablet 3 09/14/2022 4 Active Simvastatin 80 MG Oral Tablet (Zocor)Indication s:S/P angioplasty with stent TAKE ONE TABLET BY MOUTH AT BEDTIME 90 Tablet 3 08/19/2022 4 Active Clopidogrel Bisulfate 75 MG Oral Tablet (pLAVix)Indicatio ns:S/P angioplasty with stent TAKE ONE TABLET BY MOUTH EVERY DAY 90 Tablet 3 08/04/2022 3 Active metFORMIN HCl ER 500 MG Oral Tablet Extended Release 24 Hour (Glucophage XR)Indications:Ty pe 2 diabetes mellitus with hemoglobin A1c goal of less than 8.0% ([facility]) TAKE ONE TABLET BY MOUTH EVERY MORNING 100 Tablet 3 06/29/2022 3 Active Famotidine 40 MG Oral Tablet (Pepcid)Indicatio ns:Gastroesophage al reflux disease without esophagitis TAKE 1 TABLET BY MOUTH EVERY DAY 90 Tablet 1 03/24/2023 Active Sertraline HCl 100 MG Oral Tablet (Zoloft)Indicatio ns:MDD (major depressive disorder), recurrent episode, mild (HCC) Take 1 Tablet by mouth in the morning. 14 Tablet 0 04/15/2023 Active Levothyroxine Sodium 100 MCG Oral Tablet (Levoxyl)Indicati ons:Hypothyroidis m, unspecified type Take 1 Tablet by mouth in the morning. (at least 30 min prior to breakfast or other meds). 90 Tablet 3 06/17/2023 Active Zolpidem Tartrate 5 MG Oral Tablet (Ambien)Indicatio ns:Chronic insomnia TAKE 1 TABLET BY MOUTH EVERY DAY AT BEDTIME NEEDED FOR SLEEP 30 Tablet 3 06/23/2023 Active Zolpidem Tartrate 5 MG Oral Tablet (Ambien)Indicatio ns:Chronic insomnia TAKE 1 TABLET BY MOUTH AT BEDTIME NEEDED FOR SLEEP 30 Tablet 3 02/22/2023 3 Discontinued documented as of this encounter (statuses as of 06/23/2023) Active Problems Problem Noted Date Diagnosed Date Fatty liver 08/05/2021 Bradycardia 08/04/2019 Atherosclerosis of [place] co ronary artery of [place] heart without angina pectoris 10/03/2018 BASILIA (obstructive [...] as of this encounter (statuses as of 06/23/2023) Resolved Problems Problem Noted Date Diagnosed Date Resolved Date Depression with anxiety 02/10/201604/15 Screen for colon cancer 02/10/201601/13 Post-menopause 02/10/2016 01/31/2018 CAD (coronary artery disease) 05/20/2015 05/20/2015 Coronary artery disease invo lving [place] coronary artery without angina pectoris 05/20/2015 10/03/2018 HOARSENESS 10/10/2009 12/19/2019 Overview: Began 2007 Acute. NONALLERGIC RHINITIS 10/10/2009 020 Overview: Acute. EXAMINATION OF PARTICIPANT I N CLINICAL TRIAL- EVENT REGISTRY 05/19/2007 05/21/2008 Overview: Study Titile: Event Registry Project #[id number] PI: Jane Angulo MD Please call [phone] with study related questions EXAMINATION OF PARTICIPANT I N CLINICAL TRIAL: ISAR-REACT 3 05/18/2007 05/21/2008 Overview: ISAR-REACT 3: Prospective, randomized, double-blind, active controlled, multicenter trial of bivalirudin and unfractionated heparin in patients undergoing percutaneous coronary intervention Project #[id number] PI: Eduardo Ansari MD [phone] Sales Engagement Manager: Brittney Nascimento RN [phone] Abdominal aortic aneurysm 04/13/2007 EXAMINATION OF PARTICIPANT I N CLINICAL TRIAL: Genomic Markers for Patients with Cardiovascular Disease 03/20/2007 11/28/2009 Overview: Renamed Per Clinical Trials Billing Project. Study Title: Genomic Markers for Patients with Cardiovascular Disease Project # [id number] GENOMICS CARDIO RESEARCH OTHER*[id number] 03/20/2007 09/21/2016 Overview: Renamed Per Clinical Trials Billing Project. Study Title: Genomic Markers for Patients with Cardiovascular Disease Project # [id number] ADVANCE DIRECTIVE INFORMATION 03/24/2006 12/19/2019 Overview: Information offered-patient declined. Historical. Special screening for malign ant neoplasms, colon 03/04/2006 08/20/2008 Overview: Colonoscopy 03/03/06--diverticulosis, tortuous colon, repeat 10 years ACQUIRED HYPOTHYROID NEC 03/31/200503/2016 Menopause 03/31/2005 08/20/2008 Dyslipidemia, goal to be determined 03/31/2005 07/29/2009 Overview: Per Lipid Taxonomy. documented as of this encounter (statuses as of 06/23/2023) Immunizations Name Administration Dates Next Due COVID-19 mRNA, LNP-s, No Pre serve, 2-Dose Series (Moderna) 10/05/2020,09/04/2020 COVID-19, mRNA, LNP-s, PF, B ooster, 100mcg/0.5mg (Moderna) 02/22/2022,06/23/2021 H1N1 2009 Influenza, IM 08/18/2009 Pneumococcal Conjugate Vacc, 13 Valent (Prevnar) 06/09/2016 Pneumococcal Polysaccharide PPV23 (Pneumovax) 06/22/2018,05/25/2007 SEASONAL INFLUENZA, PF, 6 M & Above, IM , (FLULAVAL or FLUZONE) 06/05/2018 Season Influenza, Quad, PF, Adjuvanted, 65+ Yrs, IM (FLUAD) 05/20/2020 Seasonal Influenza, Quadriva lent Hd (Fluzone Hd) [...] encounter Miscellaneous Notes * Telephone Encounter - Be Strickland MD - 06/23/2023 10:47 PM EST Signed Prescriptions: Disp Refills Zolpidem Tartrate 5 MG Oral Tablet (Ambien)30 Tab*3 Sig: TAKE 1 TABLET BY MOUTH EVERY DAY AT BEDTIME NEEDED FOR SLEEP Authorizing Provider: BE STRICKLAND * Telephone Encounter - Catherine Erazo [facility] - 06/23/2023 9:01 AM ESTPending Prescriptions: Disp Refills Zolpidem Tartrate 5 MG Oral Tablet (Ambien)30 Tab*3 Sig: TAKE 1 TABLET BY MOUTH EVERY DAY AT BEDTIME NEEDED FOR SLEEP * Telephone Encounter - Catherine Erazo RPh - 06/23/2023 9:01 AM EST I have reviewed the patients controlled substance dispensing history in the Prescription Drug Monitoring Program in compliance with the [facility] regulations before prescribing a controlled substance. PDMP checked on 06/23/2023. Pending Prescriptions: Disp Refills Zolpidem Tartrate 5 MG Oral Tablet (Ambie*30 Tab*3 Sig: TAKE 1 TABLET BY MOUTH EVERY DAY AT BEDTIME NEEDED FOR SLEEP Last Visit: 12/22/2022 (in office), 07/28/2020 (telemedicine) Next Visit: 06/23/2023 Date medication was last filled: 05/23/23 Date medication is due for refill: 06/21/23 [facility]: [id number] [address] [facility] Is this request for a controlled substance? Yes and Urine Drug Screen Not completed Toxicology results: No results found for this or any previous visit. Please approve if appropriate. Thanks, Catherine Erazo Clinical Pharmacist [facility] ([facility]) (Formerly Telepharm[facility]) [phone] 06/23/2023, 9:01 AM documented in this encounter Plan of Treatment Upcoming Encounters Date Type Department Care Team (Late st Contact Info) Description 12/28/2023 9:20 AM EDT Office Visit Family [facility] [address] [place] [address] Be Strickland MD [address] [place] [address] Scheduled Procedures Name Priority Associated Diagnoses Date/Ti [...] 2023 02/22/2022, 06/23/2021, 10/05/2020, Additional history exists Albumin/Creatinine Ratio 06/18/2023 022, 06/23/2021, 06/18/2020, Additional history exists GFR 08/30/2023 08/30/2022, 1111/2021, 06/23/2021, Additional history exists Diabetic Foot Exam 09/14/2023 09/14/2022, 0 11/25/2021, 06/18/2020 Mammogram 09/30/2023 09/30/2022, 07/15, 07/23/2020, Additional history exists TSH 11/05/2023 11/04/2022, 08/15, 06/18/2022, Additional history exists Depression Screening 12/23/2023 12/22/2022 Colonoscopy 03/18/2026 03/18/2016, 0811/2015, 03/03/2006 Colorectal Cancer [...] this encounter Medical Devices Implanted Type Area Real Estate Assessor Device Identifier Shelf Expiration Date Model / Serial / Lot Mx60 Intraoccular Lens Posterior Chamber Implanted:Qty: 1 on 01/02/2014 at OR [facility] Tissue - Non Human Right: Eye 11/12/2014 [id number] / [id number] / [id number] Lens 17.5 Mx60 - [id number] - [id number] Implanted:Qty: 1 on 12/31/2015 by Rodney Enriquez MD at OR [facility] Left: Eye BAUSCH & LOMB : SURGICAL 04/14/2017 MX60-17.5 / [id number] / [id number] documented as of this encounter Visit Diagnoses Diagnosis Chronic insomnia Insomnia, unspecified documented in this encounter Advance Directives Latest [...] and were consensually agreed upon. Care Teams Linen Room Supervisor Relationship Specialty Start Date End Date Be Strickland MD [address] [place] [address] PCP - General Family Medicine 06/09/16 documented as of this encounter
--- OUTSIDE RECORDS SUMMARY | 2023-10-19 00:48 | External Medical Summary | Summary of Care ---
Author Name Unknown Organization [facility] Address [address] [address] Phone [phone] Care Team Providers Care Veneer Supervisor Name Role Phone Be Strickland MD Primary Care Provider + Reason for Visit * Reason Onset Date Comments Medication Refill 06/16/2023 Encounter Details Date Type Department Care Team (Late st Contact Info) Description 06/16/2023 Refill Family Practice [facility] [address] [place] [address] Be Strickland MD [address] [place] [address] Hypothyroidism, unspecified type Allergies Active Allergy Reactions Criticality Noted Date Comments Carlos Inhibitors 09/08/2004 cough Hydrodiuril 06/30/2007 Itchy eyes and throat, also hoarseness Latex 03/20/2007 Band-aids cause redness/rash at site Nitrofurantoin 08/03/2021 Headache, chest tightness, dizziness Penicillins 04/05/2003 hives, rash Sulfa Antibiotics 04/05/2003 rash Adhesive Tape 03/19/2007 rash documented as of this encounter (statuses as of 06/17/2023) Medications Medication Sig Dispensed Refills Start Date [...] 15 MINUTES 25 Tablet 2 05/25/2022 Active Additional Information Patient not taking.Reported on 05/24/2023 metroNIDAZOLE 0.75 % External Gel (Metrogel)Indicat ions:Rosacea [...] hemoglobin A1c goal of less than 8.0% ([facility]) TAKE ONE TABLET BY MOUTH EVERY MORNING 100 Tablet 3 06/29/2022 3 Active Zolpidem Tartrate 5 MG Oral Tablet (Ambien)Indicatio ns:Chronic insomnia TAKE 1 TABLET BY MOUTH AT BEDTIME NEEDED FOR SLEEP 30 Tablet 3 02/22/2023 Active Famotidine 40 MG Oral Tablet (Pepcid)Indicatio [...] other meds). 90 Tablet 3 06/17/2023 Active Levothyroxine Sodium 100 MCG Oral Tablet (Levoxyl)Indicati ons:Hypothyroidis m, unspecified type Take 1 Tablet by mouth in the morning. (at least 30 min prior to breakfast or other meds). 30 Tablet 5 01/14/2023 3 Discontinue d(Refill) documented as of this encounter (statuses as of 06/17/2023) Active Problems Problem Noted Date Diagnosed Date Fatty liver 08/05/2021 Bradycardia 08/04/2019 Atherosclerosis of kake co ronary artery of kake heart without angina pectoris 10/03/2018 BASILIA (obstructive [...] No f/u Needed. DEXA WNL janice 10y 2015 colon WNL janice 10y Hypothyroidism 02/20/2016 Seborrheic keratosis 02/10/2016 BMI 35-39 ISOLATED (SEE ACTUAL BMI) 01/26/2010 Overview: Per Obesity Protocol, #19 Gastroesophageal reflux disease without esophagi tis 10/10/2009 Dyslipidemia, goal LDL below 70 07/29/2009 Overview: Per Lipid Taxonomy. S/P angioplasty with stent 04/13/2007 HTN, goal below 140/90 03/31/2005 documented as of this encounter (statuses as of 06/17/2023) Resolved Problems Problem Noted Date Diagnosed Date Resolved Date Depression with anxiety 02/10/201604/15 Screen for colon cancer 02/10/201601/13 Post-menopause 02/10/2016 01/31/2018 CAD (coronary artery disease) 05/20/2015 05/20/2015 Coronary artery disease invo lving kake coronary artery without angina pectoris 05/20/2015 10/03/2018 HOARSENESS 10/10/2009 12/19/2019 Overview: Began 2007 Acute. NONALLERGIC RHINITIS 10/10/2009 020 Overview: Acute. EXAMINATION OF PARTICIPANT I N CLINICAL TRIAL- EVENT REGISTRY 05/19/2007 05/21/2008 Overview: Study Titile: Event Registry Project #[id number] PI: Jane Angulo MD Please call [phone] with study related questions EXAMINATION OF PARTICIPANT I N CLINICAL TRIAL: ISAR-REACT 3 05/18/2007 05/21/2008 Overview: ISAR-REACT 3: Prospective, randomized, double-blind, active controlled, multicenter trial of bivalirudin and unfractionated heparin in patients undergoing percutaneous coronary intervention Project #[id number] PI: Eduardo Ansari MD [phone] Director Of Pharmacy: Brittney Nascimento RN [phone] Abdominal aortic aneurysm 04/13/2007 EXAMINATION OF PARTICIPANT I N CLINICAL TRIAL: Genomic Markers for Patients with Cardiovascular Disease 03/20/2007 11/28/2009 Overview: Renamed Per Clinical Trials Billing Project. Study Title: Genomic Markers for Patients with Cardiovascular Disease Project # [id number] GENOMICS CARDIO RESEARCH OTHER*[id number] 03/20/2007 09/21/2016 Overview: Renamed Per Clinical Trials Billing Project. Study Title: Genomic Markers for Patients with Cardiovascular Disease Project # [id number] ADVANCE DIRECTIVE INFORMATION 03/24/2006 12/19/2019 Overview: Information offered-patient declined. Historical. Special screening for malign ant neoplasms, colon 03/04/2006 08/20/2008 Overview: Colonoscopy 03/03/06--diverticulosis, tortuous colon, repeat 10 years ACQUIRED HYPOTHYROID NEC 03/31/200503/2016 Menopause 03/31/2005 08/20/2008 Dyslipidemia, goal to be determined 03/31/2005 07/29/2009 Overview: Per Lipid Taxonomy. documented as of this encounter (statuses as of 06/17/2023) Immunizations Name Administration Dates Next Due COVID-19 [...] Telephone Encounter - Be Strickland MD - 06/17/2023 4:38 PM EDTSigned Prescriptions: Disp Refills Levothyroxine Sodium 100 MCG Oral Tablet (*90 Tab*3 Sig: Take 1 Tablet by mouth in the morning. (at least 30 min prior to breakfast or other meds). Authorizing Provider: BE STRICKLAND * Telephone Encounter - Yaquelin Jensen LPN - 06/16/2023 3:31 PM EDTPending Prescriptions: Disp Refills Levothyroxine Sodium 100 MCG Oral Tablet (*90 Tab*3 Sig: Take 1 Tablet by mouth in the morning. (at least 30 min prior to breakfast or other meds). * Telephone Encounter - Mary Anne Bhatti OSA - 06/16/2023 3:28 PM EDT Did you pend patient's preferred pharmacy and medication before forwarding?no Pharmacy: [id number] [address] [facility] Pending Prescriptions: Disp Refills Levothyroxine Sodium 100 MCG Oral Tablet *30 Tab*5 Sig: Take 1 Tablet by mouth in the morning. (at least 30 min prior to breakfast or other meds). Last Visit: 12/22/2022 (in office), 07/28/2020 (telemedicine) Next Visit: 06/23/2023 If no future appointments scheduled, and last appointment is greater than a year ago, please schedule patient for a follow-up appointment Last date the medication was ordered: 01/14/2023 90 DAY REFILL REQUEST Is this request for a controlled substance?No Urine Drug Screen:No results found for this or any previous visit. Patient Phone Numbers Labs: Lab Results Component Value Date/Time CREAT 0.9 08/30/2022 12:52 PM CREAT 0.8 06/18/2020 09:32 AM POTASSIUM 4.8 08/30/2022 12:52 PM POTASSIUM 5.2 (H) 06/18/2020 09:32 AM TSH 0.74 11/04/2022 12:49 PM TSH 1.06 06/18/2020 09:32 AM LDLCALC 43 08/30/2022 12:52 PM LDLCALC 58 11/14/2018 11:51 AM LDLDIRECT 59 06/23/2021 09:27 AM LDLDIRECT 65 06/18/2020 09:32 AM LDLDIRECT 117 03/24/2006 09:38 AM ALT 33 06/23/2021 09:27 AM ALT 25 11/14/2018 11:51 AM HGBA1C 6.7 (H) 08/30/2022 12:52 PM HGBA1C 6.7 (H) 06/18/2020 09:32 AM documented in this encounter Plan of Treatment Upcoming Encounters Date Type Department Care Team (Late st Contact Info) Description 06/23/2023 1:00 PM EST Office Visit [facility] [address] [place] [id number] Maryam Hou CRNP [address] [place] [address] 12/28/2023 9:20 AM EDT Office Visit [facility] [address] [place] [address] Be Strickland MD [address] [place] [address] Scheduled Procedures Name Priority Associated Diagnoses Date/Ti [...] 06/23/2021, 10/05/2020, Additional history exists Albumin/Creatinine Ratio 06/18/202306/18/2 022, 06/23/2021, 06/18/2020, Additional history exists GFR 08/30/2023 08/30/2022, 11/0 11/2021, 06/23/2021, Additional history exists Diabetic Foot [...] this encounter Medical Devices Implanted Type Area Manufacturing Analyst Device Identifier Shelf Expiration Date Model / Serial / Lot Mx60 Intraoccular Lens Posterior Chamber Implanted:Qty: 1 on 01/02/2014 at OR [facility] Tissue - Non Human Right: Eye 11/12/2014 [id number] / [id number] / [id number] Lens 17.5 Mx60 - [id number] - [id number] Implanted:Qty: 1 on 12/31/2015 by Rodney Enriquez MD at OR [facility] Left: Eye [employer] : SURGICAL 04/14/2017 [id number] / [id number] / [id number] documented as of this encounter Visit Diagnoses Diagnosis Hypothyroidism, unspecified type documented in this encounter Advance Directives Latest [...] and were consensually agreed upon. Care Teams Veneer Supervisor Relationship Specialty Start Date End Date Be Strickland MD [address] [place] [id number] PCP - General Family Medicine 06/09/16 documented as of this encounter
--- OUTSIDE RECORDS SUMMARY | 2023-10-19 00:48 | External Medical Summary | Summary of Care ---
Author Name Unknown Organization [facility] Address [address] [facility] [place] [address] Phone [phone] Care Team Providers Care Cargo Services Coordinator Name Role Phone Be Valdivia MD Primary Care Provider + Reason for Visit * Reason Comments Re-Check 6 month return Encounter Details Date Type Department Care Team (Late st Contact Info) Description 06/23/2023 1:00 PM EST Office Visit Family [facility] [address] [place] [id number] Maryam Hou CRNP [address] [place] [id number] Type 2 diabetes mellitus with hemoglobin A1c goal of less than 8.0% ([facility])*; Hypothyroidism, unspecified type; MDD (major depressive disorder), recurrent episode, mild (HCC); Chronic insomnia; Encounter for long-term (current) use of medications; HTN, goal below 140/90; S/P angioplasty with stent; Need for RSV immunization Allergies Active Allergy Reactions Criticality Noted Date [...] 0 Active FISH OIL 1200 MG PO CAPSIndications:Tevin ma 2 daily 0 0 10/20/2007 Active Nitroglycerin 0.4 MG Sublingual Tablet Sublingual (Nitrostat)Indicati ons:S/P angioplasty with stent DISSOLVE 1 TABLET UNDER THE TONGUE EVERY 5 MINUTES NEEDED FOR CHEST PAIN. DO NOT EXCEED A TOTAL OF 3 DOSES IN 15 MINUTES 25 Tablet 2 05/25/2022 Active metroNIDAZOLE 0.75 % External Gel (Metrogel)Indicatio ns:Rosacea Apply topically to affected area 2 times a day. Apply to affected area 45 g 11 09/14/2022 Active Metoprolol Succinate ER 25 MG Oral Tablet Extended Release 24 Hour (toPROL XL)Indications:Dysl ipidemia, goal LDL below 100,S/P angioplasty with stent,Abdominal aortic aneurysm (HCC),HTN, goal below 140/90 TAKE ONE-HALF TABLET BY MOUTH EVERY MORNING 50 Tablet 3 02/04/2023 02/04/2024 Active Losartan Potassium 100 MG Oral Tablet (Cozaar)Indications :HTN, goal below 140/90 TAKE ONE TABLET BY MOUTH EVERY MORNING 90 Tablet 3 09/14/2022 09/14/2023 Active Simvastatin 80 MG Oral Tablet (Zocor)Indications: S/P angioplasty with stent TAKE ONE TABLET BY MOUTH AT BEDTIME 90 Tablet 3 08/19/2022 09/07/2023 Active Clopidogrel Bisulfate 75 MG Oral Tablet (pLAVix)Indications :S/P angioplasty with stent TAKE ONE TABLET BY MOUTH EVERY DAY 90 Tablet 3 08/04/2022 08/09/2023 Active metFORMIN HCl ER 500 MG Oral Tablet Extended Release 24 Hour (Glucophage XR)Indications:Type 2 diabetes mellitus with hemoglobin A1c goal of less than 8.0% ([facility]) TAKE ONE TABLET BY MOUTH EVERY MORNING 100 Tablet 3 06/29/2022 07/23/2023 Active Zolpidem Tartrate 5 MG Oral Tablet (Ambien)Indications :Chronic insomnia TAKE 1 TABLET BY MOUTH AT BEDTIME NEEDED FOR SLEEP 30 Tablet 3 02/22/2023 Active Famotidine 40 MG Oral Tablet (Pepcid)Indications :Gastroesophageal reflux disease without esophagitis TAKE 1 TABLET BY MOUTH EVERY DAY 90 Tablet 1 03/24/2023 Active Sertraline HCl 100 MG Oral Tablet (Zoloft)Indications :MDD (major depressive disorder), recurrent episode, mild (HCC) Take 1 Tablet by mouth in the morning. 14 Tablet 0 04/15/2023 Active Levothyroxine Sodium 100 MCG Oral Tablet (Levoxyl)Indication s:Hypothyroidism, unspecified type Take 1 Tablet by mouth in the morning. (at least 30 min prior to breakfast or other meds). 90 Tablet 3 06/17/2023 Active documented as of this encounter (statuses as of 06/23/2023) Active Problems Problem Noted Date Diagnosed Date Fatty liver 08/05/2021 Bradycardia 08/04/2019 Atherosclerosis of [place] co ronary artery of [place] heart without angina pectoris 10/03/2018 BASILAI (obstructive sleep apnea) 09/12/2018 RLS (restless legs syndrome) 02/08/2018 Psychophysiologic insomnia 02/08/2018 Type 2 diabetes mellitus wit h hemoglobin A1c goal of less than 8.0% 06/15/2016 Well adult exam 06/09/2016 Overview: 08/04 US-aorta 2.8cm stable 2018 start metformin. Considering Shingrix [...] 05/20/2015 05/20/2015 Coronary artery disease invo lving [place] coronary artery without angina pectoris 05/20/2015 10/03/2018 HOARSENESS 10/10/2009 12/19/2019 Overview: Began 2007 Acute. NONALLERGIC RHINITIS 10/10/2009 020 Overview: Acute. EXAMINATION OF PARTICIPANT I N CLINICAL TRIAL- EVENT REGISTRY 05/19/2007 05/21/2008 Overview: Study Titile: Event Registry Project #[id number] PI: Jane Angulo MD Please call [phone] with study related questions EXAMINATION OF PARTICIPANT I N CLINICAL TRIAL: ISAR-REACT 3 05/18/2007 05/21/2008 Overview: ISAR-REACT 3: Prospective, randomized, double-blind, active controlled, multicenter trial of bivalirudin and unfractionated heparin in patients undergoing percutaneous coronary intervention Project #[id number] PI: Eduardo Ansari MD [phone] Duck Farmer: Brittney Nascimento RN [phone] Abdominal aortic aneurysm 04/13/2007 EXAMINATION OF PARTICIPANT I N CLINICAL TRIAL: Genomic Markers for Patients with Cardiovascular Disease 03/20/2007 11/28/2009 Overview: Renamed Per Clinical Trials Billing Project. Study Title: Genomic Markers for Patients with Cardiovascular Disease Project # [id number] GENOMICS CARDIO RESEARCH OTHER*[id number] 03/20/2007 09/21/2016 Overview: Renamed Per Clinical Trials Billing Project. Study Title: Genomic Markers for Patients with Cardiovascular Disease Project # [id number] ADVANCE DIRECTIVE INFORMATION 03/24/2006 12/19/2019 Overview: Information [...] Perfusio n F, Pf,0.5 Ml (Abrysvo) 06/23/2023 SEASONAL INFLUENZA, PF, 6 M & Above, [...] on file documented as of this encounter Last Filed Vital Signs Vital Sign Reading Time Taken Comments Blood Pressure 122/60 06/23/2023 1:07 PM EST Pulse 60 06/23/2023 1:07 PM EST Temperature - - Respiratory Rate - - Oxygen Saturation - - Inhaled Oxygen Concentration - - Weight 85.8 kg (189 lb 2 oz) 06/23/2023 1:07 PM EST Height - - Body Mass Index 32.72 12/22/2022 9:21 AM EDT documented in this encounter Progress Notes * Maryam Hou CRNP - 06/23/2023 1:14 PM EST Images from the original note were not included. Follow up Family Medicine Visit History of Present Illness Lindy Kinsey is a very pleasant 72 year old female with PMH listed below presenting with 6 months check. She is overall doing well. No acute concern. Thyroid - feels current dose is stable. Diabetes - metformin 500mg once Cardiac -- controlled w/ losartan/metoprolol xl, simvastatin, Plavix, asa 81 GERD - controlled with pepcid 40 Mood -- much better since she started zoloft Burning tongue resolved -- not sure if nystatin helped. Social History Socioeconomic History Marital status: Spouse name: Not on file Number of children: Not on file Years of education: Not on file Highest education level: Not on file Occupational History Comment: retired- fraternity cook Tobacco Use Smoking status: Former Packs/day: 1.00 Years: 33.00 Additional pack years: 0.00 Total pack years: 33.00 Types: Cigarettes Quit date: 11/04/2002 Years since quittin.6 Smokeless tobacco: Never Tobacco comments: no passive smoke exposures Vaping Use Vaping Use: Never used Substance and Sexual Activity Alcohol use: No Drug use: No Sexual activity: Yes Partners: Male Comment: . 2 kids. 4 grandsons, 2 greatgrandsons-local. Other Topics Concern Not on file Social History Narrative Likes-crafting, (country stuff). [employer] [place] INFORMATION ENVIRONMENTAL HISTORY: Type of Home: One Story Type of Heating System: Heat pump Air Conditioning: Yes Central Basement: Finished, Carpeted rooms, Dehumidifier and No evidence mold, mildew Home have cockroaches: No Irritants in the home: None Patient's bedroom location: Floor: first Type of jose: Carpeting Beds: Number: 1 Type of beds: Mattress and Box spring Pillows: Number: 1 Type of pillows: Synthetic (hypoallergenic, polyester) Bedroom contains: Minimal items Pets: 2 dog(s) Lives on a farm: No Cook for a [employer] house; no occupation related worsening of symptoms. Entered by: Fer Rios MD 10/10/2009 Social Determinants of Health Financial Resource Strain: Not on file Food Insecurity: No Food Insecurity (12/22/2022) Hunger Vital Sign Worried About Running Out of Food in the Last Year: Never true Ran Out of Food in the Last Year: Never true Transportation Needs: Not on file Physical Activity: Not on file Stress: Not on file Social Connections: Not on file Intimate Partner Violence: Not on file Housing Stability: Not on file PMH: Past Medical History: Diagnosis Date Coronary artery disease involving [place] coronary artery without angina pectoris 05/20/2015 Depression with anxiety 02/10/2016 Dyslipidemia, goal to be determined Fatty liver 08/05/2021 HOARSENESS 10/10/2009 Began 2007 HTN, goal below 140/90 03/31/2005 Prediabetes 06/15/2016 S/P angioplasty with stent 04/13/2007 Type 2 diabetes mellitus with hemoglobin A1c goal of less than 8.0% ([facility]) 06/15/2016 Past Surgical History: Procedure Laterality Date COLONOSCOPY, DIAGNOSTIC (RECTUM) 03/18/2016 diverticulosis, repeat 10 yrs/COLONOSCOPY FLEXIBLE PROXIMAL DIAGNOSTIC performed by Kecia Skinner DO at ENDOSCOPY [facility] COLONOSCOPY, GI REFERRAL OP 03/03/06 diverticulosis, tortuous colon, repeat 10 years INFORMATION 03/18/07 heart attack-patient has 3 stents REMOVE CATARACT, INSERT LENS PROSTH 01/02/2014 EXTRACAPSULAR CATARACT REMOVAL WITH INTRAOCULAR LENS performed by Rodney Enriquez MD at OR [facility] REMOVE CATARACT, INSERT LENS PROSTH Left 12/31/2015 EXTRACAPSULAR CATARACT REMOVAL WITH INTRAOCULAR LENS performed by Rodney Enriquez MD at OR [facility] TOTAL HYSTERECTOMY endometriosis Outpatient Medications Marked as Taking for the 06/23/23 encounter (Office Visit) with Maryam Hou CRNP Medication Sig Levothyroxine Sodium 100 MCG Oral Tablet (Levoxyl) Take 1 Tablet by mouth in the morning. (at least30 min prior to breakfast or other meds). Sertraline HCl 100 MG Oral Tablet (Zoloft) Take 1 Tablet by mouth in the morning. Famotidine 40 MG Oral Tablet (Pepcid) TAKE 1 TABLET BY MOUTH EVERY DAY Zolpidem Tartrate 5 MG Oral Tablet (Ambien) TAKE 1 TABLET BY MOUTH AT BEDTIME NEEDED FOR SLEEP Metoprolol Succinate ER 25 MG Oral Tablet Extended Release 24 Hour (toPROL XL) TAKE ONE-HALF TABLETBY MOUTH EVERY MORNING Losartan Potassium 100 MG Oral Tablet (Cozaar) TAKE ONE TABLET BY MOUTH EVERY MORNING metroNIDAZOLE 0.75 % External Gel (Metrogel) Apply topically to affected area 2 times a day. Apply to affected area Simvastatin 80 MG Oral Tablet (Zocor) TAKE ONE TABLET BY MOUTH AT BEDTIME Clopidogrel Bisulfate 75 MG Oral Tablet (pLAVix) TAKE ONE TABLET BY MOUTH EVERY DAY metFORMIN HCl ER 500 MG Oral Tablet Extended Release 24 Hour (Glucophage XR) TAKE ONE TABLET BY MOUTH EVERY MORNING Nitroglycerin 0.4 MG Sublingual Tablet Sublingual (Nitrostat) DISSOLVE 1 TABLET UNDER THE TONGUE EVERY 5 MINUTES NEEDED FOR CHEST PAIN. DO NOT EXCEED A TOTAL OF 3 DOSES IN 15 MINUTES FISH OIL 1200 MG PO CAPS 2 daily ASPIRIN 81 MG PO TABS 1 TABLET DAILY Review of patient's allergies indicates: Allergen Reactions Carlos Inhibitors cough Hydrodiuril Itchy eyes and throat, also hoarseness Latex Band-aids cause redness/rash at site Macrobid [Nitrofurantoin] Headache, chest tightness, dizziness Penicillins hives, rash Sulfa Antibiotics rash Tape [Adhesive Tape] rash Most Recent Immunizations Administered Date(s) Administered COVID-19 mRNA, LNP-s, No Preserve, 2-Dose Series (Moderna) 10/05/2020 COVID-19, mRNA, LNP-s, PF, Booster, 100mcg/0.5mg (Moderna) 02/22/2022 H1N1 2009 Influenza, IM 08/18/2009 Pneumococcal Conjugate Vacc, 13 Valent (Prevnar) 06/09/2016 Pneumococcal Polysaccharide PPV23 (Pneumovax) 06/22/2018 SEASONAL INFLUENZA, PF, 6 M & Above, IM , (FLULAVAL or FLUZONE) 06/05/2018 Season Influenza, Quad, PF, Adjuvanted, 65+ Yrs, IM (FLUAD) 05/20/2020 Seasonal Influenza, Quadrivalent Hd (Fluzone Hd) 05/24/2023 Seasonal Influenza, Quadrivalent, No Preserve, IM 04/25/2017 Seasonal Influenza, Split, IIV3, With Preserve, Inj 05/20/2015 Seasonal Influenza, Trivalent, Adjuvanted, 65+ yrs 05/21/2019 TDAP (age 10 and older)(Boostrix) 06/29/2019 TDAP (age 11 and older)(Adacel) 03/12/2009 Zoster Vaccine Recombinant (Shingrix) 05/20/2022 Review of Systems: Physical Exam BP 122/60 | Pulse 60 | Wt 85.8 kg (189 lb 2 oz) | BMI 32.72 kg/m | BSA 1.96 m Physical Exam Constitutional: Appearance: Normal appearance. HENT: Head: Normocephalic. Right Ear: Tympanic membrane, ear canal and external ear normal. Left Ear: Tympanic membrane, ear canal and external ear normal. Nose: Nose normal. Mouth/Throat: Pharynx: No posterior oropharyngeal erythema. Cardiovascular: Rate and Rhythm: Normal rate and regular rhythm. Pulmonary: Effort: Pulmonary effort is normal. Breath sounds: Normal breath sounds. Abdominal: General: Bowel sounds are normal. There is no distension. Tenderness: There is no abdominal tenderness. Musculoskeletal: Cervical back: Neck supple. Right lower leg: No edema. Left lower leg: No edema. Skin: General: Skin is warm. Neurological: Mental Status: She is alert and oriented to person, place, and time. Psychiatric: Mood and Affect: Mood normal. Assessment and Plan 1. Type 2 diabetes mellitus with hemoglobin A1c goal of less than 8.0% (HCC) Cont metformin Full panel of blood work before next well visit - ALBUMIN / CREATININE RATIO, URINE; Future - HEMOGLOBIN A1C; Future - BASIC METABOLIC PANEL; Future - LIPID PANEL WITH DIRECT LDL IF TG IS HIGH; Future 2. Hypothyroidism, unspecified type Cont levothyroxine - TSH WITH FREE T4 IF INDICATED; Future 3. MDD (major depressive disorder), recurrent episode, mild (HCC) Cont zoloft 100mg 4. Chronic insomnia ambien 5. Encounter for long-term (current) use of medications - VITAMIN B12; Future 6. HTN, goal below 140/90 At goal, cont current meds 7. S/P angioplasty with stent 8. Need for RSV immunization - RSV VAC., BIVALENT, PERFUSION F, PF,0.5 ML (ABRYSVO) Wrap-Up I have advised the patient to call our office with any worsening or new symptoms. I spent a total of 30-39 minutes (exact time 38 mins) on the date of service in preparation, delivery, and documentation of the care provided to Lindy Kinsey excluding any time spent in the performance of separately billed services. CASSIE Leblanc, ELEANOR [facility] documented in this encounter Plan of Treatment Upcoming Encounters Date Type Department Care Team (Late st Contact Info) Description 12/28/2023 9:20 AM EDT Office Visit Family [facility] [address] [place] [address] Be Valdivia MD [address] [place] [address] Scheduled Orders Name Type Priority Associated Diagnoses Orde r Schedule ALBUMIN / CREATININE RATIO, URINE Lab Routine Type 2 diabetes mellitus with hemoglobin A1c goal of less than 8.0% (HCC) Expected: 06/23/2023 (Approximate), Expires: 06/23/2024 HEMOGLOBIN A1C Lab Routine Type 2 diabetes mellitus with hemoglobin A1c goal of less than 8.0% (HCC) Expected: 06/23/2023 (Approximate), Expires: 07/23/2024 BASIC METABOLIC PANEL Lab Routine Type 2 diabetes mellitus with hemoglobin A1c goal of less than 8.0% (HCC) Expected: 06/23/2023 (Approximate), Expires: 06/22/2024 TSH WITH FREE T4 IF INDICATED Lab Routine Hypothyroidism, unspecified type Expected: 06/23/2023 (Approximate), Expires: 06/22/2024 LIPID PANEL WITH DIRECT LDL IF TG IS HIGH Lab Routine Type 2 diabetes mellitus with hemoglobin A1c goal of less than 8.0% (HCC) Expected: 06/23/2023, Expires: 06/23/2024 VITAMIN B12 Lab Routine Encounter for long-term (current) use of medications Expected: 06/23/2023 (Approximate), Expires: 06/22/2024 Scheduled Procedures Name Priority Associated Diagnoses Date/Ti me COLONOSCOPY FLEXIBLE PROXIMAL DIAGNOSTIC Recall Colon cancer screening Health Maintenance Due Date Last Done Comments Cologuard 1995 Fecal Occult Blood Test 1995 Sigmoidoscopy 1995 Hepatitis B (1 of 3 - Risk 3-dose series) 2010 Diabetic Eye Exam 05/29/2022 05/29/2021 HbA1c 02/27/2023 08/30/2022, 110 11/2021, 11/25/2021, Additional history exists DXA Scan 03/01/2023 03/01/2016 COVID-19 Vaccine ( season) 2023 02/22/2022, 06/23/2021, 10/05/2020, Additional history exists Albumin/Creatinine Ratio 06/18/2023 022, 06/23/2021, 06/18/2020, Additional history exists GFR 08/30/2023 08/30/2022, 110 [...] this encounter Medical Devices Implanted Type Area [employer] Specials Device Identifier Shelf Expiration Date Model / Serial / Lot Mx60 Intraoccular Lens Posterior Chamber Implanted:Qty: 1 on 01/02/2014 at OR [facility] Tissue - Non Human Right: Eye 11/12/2014 [id number] / [id number] / [id number] Lens 17.5 Mx60 - [id number] - [id number] Implanted:Qty: 1 on 12/31/2015 by Rodney Enriquez MD at OR [facility] Left: Eye [employer] : SURGICAL 04/14/2017 MX60-17.5 / [id number] / [id number] documented as of this encounter Visit Diagnoses Diagnosis Type 2 diabetes mellitus with hemoglobin A1c goal of less than 8.0% (HCC)- Primary Hypothyroidism, unspecified type MDD (major depressive disorder), recurrent episode, mild (HCC) Major depressive disorder, recurrent episode, mild Chronic insomnia Insomnia, unspecified Encounter for long-term (current) use of medications Encounter for long-term (current) use of other medications HTN, goal below 140/90 Unspecified essential hypertension S/P angioplasty with stent Postsurgical percutaneous transluminal coronary angioplasty status Need for RSV immunization Need for prophylactic vaccination and inoculation against respiratory syncytial virus documented in this encounter Advance Directives Latest [...] and were consensually agreed upon. Care Teams Cargo Services Coordinator Relationship Specialty Start Date End Date Be Valdivia MD [address] [place] [address] PCP - General Family Medicine 06/09/16 documented as of this encounter"
--- OUTSIDE RECORDS SUMMARY | 2023-10-19 00:48 | External Medical Summary ---
Author Name Unknown Address Unknown Organization [id number] - [address] [place], [place] [id number] Laboratory Report Ordering Provider Test Date Status KAT HALL 07/04/2023 10:40:00 Final Normal: <30 mg/g creatinine< br/>High: 30-300 mg/g creatinine
Very High: >300 mg/g creatinine
Nephrotic: >2200 mg/g creatinine Observation Date Value Abnormality Reference (Units ) Status Albumin, Urine 07/04/2023 10:40:00 <1.20 (mg/d L) Final This testing was performed a s part of a [facility] [employer] fulfillment initiative Creatinine, Urine 07/04/2023 10:40:00 27 (m g/dL) Final ALBUMIN/CREATININE RATIO, HIDE 07/04/2023 10:40:00 Uninterpretable Albumin/Creatinine ratio due to very low albumin and creatinine values. <30 (mg/g Creat) Final Performing Location [facility] - [address] [facility] [id number]
--- OUTSIDE RECORDS SUMMARY | 2023-10-19 00:48 | External Medical Summary | Summary of Care ---
Author Name Unknown Organization [facility] [address] [facility] [address] Phone [phone] Care Team Providers Care Local Delivery Truck Driver Name Role Phone Be Strickland MD Primary Care Provider + Reason for Visit * Reason Onset Date Comments Medication Refill 07/20/2023 Encounter Details Date Type Department Care Team (Late st Contact Info) Description 07/20/2023 Refill Family Practice [facility] [address] [place] [address] Be Strickland MD [address] [facility] [place] [address] MDD (major depressive disorder), recurrent episode, mild (HCC) Allergies Active Allergy Reactions Criticality Noted Date Comments Carlos Inhibitors 09/08/2004 cough Hydrodiuril 06/30/2007 Itchy eyes and throat, also hoarseness Latex 03/20/2007 Band-aids cause redness/rash at site Nitrofurantoin 08/03/2021 Headache, chest tightness, dizziness Penicillins 04/05/2003 hives, rash Sulfa Antibiotics 04/05/2003 rash Adhesive Tape 03/19/2007 rash documented as of this encounter (statuses as of 07/20/2023) Medications Medication Sig Dispensed Refills Start Date [...] DAY 90 Tablet 3 08/04/2022 08/09/2023 Active Famotidine 40 MG Oral Tablet (Pepcid)Indicatio [...] 15 MINUTES 25 Tablet 2 07/12/2023 Active Sertraline HCl 100 MG Oral Tablet (Zoloft)Indicatio ns:MDD (major depressive disorder), recurrent episode, mild (HCC) Take 1 Tablet by mouth in the morning. 100 Tablet 3 07/20/2023 Active metFORMIN HCl ER 500 MG Oral Tablet Extended Release 24 Hour (Glucophage XR)Indications:Ty pe 2 diabetes mellitus with hemoglobin A1c goal of less than 8.0% (HCC) TAKE ONE TABLET BY MOUTH EVERY MORNING 100 Tablet 3 06/29/2022 07/20/2023 Discontinue d(Refill) Sertraline HCl 100 MG Oral Tablet (Zoloft)Indicatio ns:MDD (major depressive disorder), recurrent episode, mild (HCC) Take 1 Tablet by mouth in the morning. 14 Tablet 0 04/15/2023 07/20/2023 Discontinue d(Refill) documented as of this encounter (statuses as of 07/20/2023) Active Problems Problem Noted Date Diagnosed Date Fatty liver 08/05/2021 Bradycardia 08/04/2019 Atherosclerosis of [place] co ronary artery of [place] heart without angina pectoris 10/03/2018 BASILIA (obstructive [...] as of this encounter (statuses as of 07/20/2023) Resolved Problems Problem Noted Date Diagnosed Date Resolved Date Depression with anxiety 02/10/201604/15 Screen for colon cancer 02/10/201601/13 Post-menopause 02/10/2016 01/31/2018 CAD (coronary artery disease) 05/20/2015 05/20/2015 Coronary artery disease invo lving [place] coronary artery without angina pectoris 05/20/2015 10/03/2018 HOARSENESS 10/10/2009 12/19/2019 Overview: Began 2007 Acute. NONALLERGIC RHINITIS 10/10/2009 020 Overview: Acute. EXAMINATION OF PARTICIPANT I N CLINICAL TRIAL- EVENT REGISTRY 05/19/2007 05/21/2008 Overview: Study Titile: Event Registry Project #[id number] PI: Jane Angulo MD Please call [phone] with study related questions EXAMINATION OF PARTICIPANT I N CLINICAL TRIAL: ISAR-REACT 3 05/18/2007 05/21/2008 Overview: ISAR-REACT 3: Prospective, randomized, double-blind, active controlled, multicenter trial of bivalirudin and unfractionated heparin in patients undergoing percutaneous coronary intervention Project #[id number] PI: Eduardo Ansari MD [phone] Civil Engineering Project Designer: Brittney Nascimento RN [phone] Abdominal aortic aneurysm 04/13/2007 EXAMINATION OF PARTICIPANT I N CLINICAL TRIAL: Genomic Markers for Patients with Cardiovascular Disease 03/20/2007 11/28/2009 Overview: Renamed Per Clinical Trials Billing Project. Study Title: Genomic Markers for Patients with Cardiovascular Disease Project # [id number] GENOMICS CARDIO RESEARCH OTHER*[id number] 03/20/2007 09/21/2016 Overview: Renamed Per Clinical Trials Billing Project. Study Title: Genomic Markers for Patients with Cardiovascular Disease Project # [id number] ADVANCE DIRECTIVE INFORMATION 03/24/2006 12/19/2019 Overview: Information offered-patient declined. Historical. Special screening for malign ant neoplasms, colon 03/04/2006 08/20/2008 Overview: Colonoscopy 03/03/06--diverticulosis, tortuous colon, repeat 10 years ACQUIRED HYPOTHYROID NEC 03/31/200503/2016 Menopause 03/31/2005 08/20/2008 Dyslipidemia, goal to be determined 03/31/2005 07/29/2009 Overview: Per Lipid Taxonomy. documented as of this encounter (statuses as of 07/20/2023) Immunizations Name Administration Dates Next Due COVID-19 [...] encounter Miscellaneous Notes * Telephone Encounter - Blanka Ortega RPh - 07/20/2023 4:00 PM ESTSigned Prescriptions: Disp Refills Sertraline HCl 100 MG Oral Tablet (Zoloft) 100 Ta*3 Sig: Take 1 Tablet by mouth in the morning.Authorizing Provider: BE STRICKLAND User: MAAME ORTEGA * Telephone Encounter - Mitali Garcia PHARM Tech - 07/20/2023 10:50 AM EST Patient is requesting a 90-day supply, pre-edited RXs as such. Please review and approve if appropriate. Pending Prescriptions: Disp Refills Sertraline HCl 100 MG Oral Tablet (Zoloft)90 Tab*0 Sig: Take 1 Tablet by mouth in the morning. Last Visit: 06/23/2023 (in office), 07/28/2020 (telemedicine) 12/28/2023 If no future appointments scheduled, and last appointment is greater than a year ago, please schedule patient for an appointment Last date the medication was ordered: 04/15/2023 Patient Phone Numbers Labs: Lab Results Component [...] 12/28/2023 9:20 AM EDT Office Visit Family [facility] [address] [place] [address] Be Strickland MD [address] [place] [address] Scheduled Procedures Name Priority Associated Diagnoses Date/Ti [...] this encounter Medical Devices Implanted Type Area Assembly Machine Offbearer Device Identifier Shelf Expiration Date Model / Serial / Lot Mx60 Intraoccular Lens Posterior Chamber Implanted:Qty: 1 on 01/02/2014 at OR [facility] Tissue - Non Human Right: Eye 11/12/2014 [id number] / [id number] / [id number] Lens 17.5 Mx60 - [id number] - [id number] Implanted:Qty: 1 on 12/31/2015 by Rodney Enriquez MD at OR [facility] Left: Eye [employer]OM[employer] : SURGICAL 04/14/2017 MX60-17.5 / [id number] / [id number] documented as of this encounter Visit Diagnoses Diagnosis MDD (major depressive disorder), recurrent episode, mild (HCC) Major depressive disorder, recurrent episode, mild documented in this encounter Advance Directives Latest [...] and were consensually agreed upon. Care Teams Local Delivery Truck Driver Relationship Specialty Start Date End Date eB Strickland MD [address] [facility] [place] [address] PCP - General Family Medicine 06/09/16 documented as of this encounter
--- OUTSIDE RECORDS SUMMARY | 2023-10-19 00:48 | External Medical Summary | Summary of Care ---
Author Name Unknown Organization [facility] Address [address] [facility] [address] Phone [phone] Care Team Providers Care Showplace Manager Name Role Phone Be Strickland MD Primary Care Provider + Reason for Visit * Reason Comments eRx-Medication Refill Encounter Details Date Type Department Care Team (Late st Contact Info) Description 07/11/2023 Refill Family Practice [facility] [address] [facility] [place] [address] Be Strickland MD [address] [facility] [address] S/P angioplasty with stent Allergies Active Allergy Reactions Criticality Noted Date Comments Carlos Inhibitors 09/08/2004 cough Hydrodiuril 06/30/2007 Itchy eyes and throat, also hoarseness Latex 03/20/2007 Band-aids cause redness/rash at site Nitrofurantoin 08/03/2021 Headache, chest tightness, dizziness Penicillins 04/05/2003 hives, rash Sulfa Antibiotics 04/05/2003 rash Adhesive Tape 03/19/2007 rash documented as of this encounter (statuses as of 07/12/2023) Medications Medication Sig Dispensed Refills Start Date [...] hemoglobin A1c goal of less than 8.0% ([facility]) TAKE ONE TABLET BY MOUTH EVERY [...] 15 MINUTES 25 Tablet 2 07/12/2023 Active Nitroglycerin 0.4 MG Sublingual Tablet Sublingual (Nitrostat)Indica tions:S/P angioplasty with stent DISSOLVE 1 TABLET UNDER THE TONGUE EVERY 5 MINUTES NEEDED FOR CHEST PAIN. DO NOT EXCEED A TOTAL OF 3 DOSES IN 15 MINUTES 25 Tablet 2 05/25/2022 3 Discontinued documented as of this encounter (statuses as of 07/12/2023) Active Problems Problem Noted Date Diagnosed Date Fatty liver 08/05/2021 Bradycardia 08/04/2019 Atherosclerosis of [place] co ronary artery of [place] heart without angina pectoris 10/03/2018 [place]IL[place] (obstructive [...] as of this encounter (statuses as of 07/12/2023) Resolved Problems Problem Noted Date Diagnosed Date Resolved Date Depression with anxiety 02/10/201604/15 Screen for colon cancer 02/10/201601/13 Post-menopause 02/10/2016 01/31/2018 CAD (coronary artery disease) 05/20/2015 05/20/2015 Coronary artery disease invo lving [place] coronary artery without angina pectoris 05/20/2015 10/03/2018 HOARSENESS 10/10/2009 12/19/2019 Overview: Began 2007 Acute. NONALLERGIC RHINITIS 10/10/2009 020 Overview: Acute. EXAMINATION OF PARTICIPANT I N CLINICAL TRIAL- EVENT REGISTRY 05/19/2007 05/21/2008 Overview: Study Titile: Event Registry Project #[id number] PI: Jane Angulo MD Please call [phone] with study related questions EXAMINATION OF PARTICIPANT I N CLINICAL TRIAL: ISAR-REACT 3 05/18/2007 05/21/2008 Overview: ISAR-REACT 3: Prospective, randomized, double-blind, active controlled, multicenter trial of bivalirudin and unfractionated heparin in patients undergoing percutaneous coronary intervention Project #[id number] PI: Eduardo Ansari MD [phone] Industrial Truck Operator: Brittney Nascimento RN [phone] Abdominal aortic aneurysm 04/13/2007 EXAMINATION OF PARTICIPANT I N CLINICAL TRIAL: Genomic Markers for Patients with Cardiovascular Disease 03/20/2007 11/28/2009 Overview: Renamed Per Clinical Trials Billing Project. Study Title: Genomic Markers for Patients with Cardiovascular Disease Project # [id number] GENOMICS CARDIO RESEARCH OTHER*[id number] 03/20/2007 09/21/2016 Overview: Renamed Per Clinical Trials Billing Project. Study Title: Genomic Markers for Patients with Cardiovascular Disease Project # [id number] ADVANCE DIRECTIVE INFORMATION 03/24/2006 12/19/2019 Overview: Information offered-patient declined. Historical. Special screening for malign ant neoplasms, colon 03/04/2006 08/20/2008 Overview: Colonoscopy 03/03/06--diverticulosis, tortuous colon, repeat 10 years ACQUIRED HYPOTHYROID NEC 03/31/200503/2016 Menopause 03/31/2005 08/20/2008 Dyslipidemia, goal to be determined 03/31/2005 07/29/2009 Overview: Per Lipid Taxonomy. documented as of this encounter (statuses as of 07/12/2023) Immunizations Name Administration Dates Next Due COVID-19 [...] encounter Miscellaneous Notes * Telephone Encounter - Bibi Costa RPh - 07/12/2023 9:47 AM ESTSigned Prescriptions: Disp Refills Nitroglycerin 0.4 MG Sublingual Tablet Sub*25 Tab*2 Sig: DISSOLVE 1 TABLET UNDER THE TONGUE EVERY 5 MINUTES NEEDED FOR CHEST PAIN. DO NOT EXCEED A TOTAL OF 3 DOSES IN 15 MINUTESAuthorizing Provider: BE STRICKLAND User: BIBI COSTA documented in this encounter Plan of Treatment Upcoming Encounters Date Type Department Care Team (Late st Contact Info) Description 12/28/2023 9:20 AM EDT Office Visit Family [address] [place] [address] Be Strickland MD [address] [place] [address] Scheduled Procedures Name Priority Associated Diagnoses Date/Ti [...] this encounter Medical Devices Implanted Type Area Drain Layer Device Identifier Shelf Expiration Date Model / Serial / Lot Mx60 Intraoccular Lens Posterior Chamber Implanted:Qty: 1 on 01/02/2014 at OR [facility] Tissue - Non Human Right: Eye 11/12/2014 [id number] / [id number] / [id number] Lens 17.5 Mx60 - [id number] - [id number] Implanted:Qty: 1 on 12/31/2015 by Rodney Enriquez MD at OR [facility] Left: Eye [employer]OM[employer] : SURGICAL 04/14/2017 MX60-17.5 / [id number] / [id number] documented as of this encounter Visit Diagnoses [...] and were consensually agreed upon. Care Teams Showplace Manager Relationship Specialty Start Date End Date Be Strickland MD [address] [place] [address] PCP - General Family Medicine 06/09/16 documented as of this encounter
--- OUTSIDE RECORDS SUMMARY | 2023-10-19 00:48 | External Medical Summary | Summary of Care ---
Author Name Unknown Organization [facility] Address [address] [address] Phone [phone] Care Team Providers Care Design Assembler Name Role Phone Be Strickland MD Primary Care Provider + Reason for Visit * Reason Comments Medication Refill Encounter Details Date Type Department Care Team (Late st Contact Info) Description 07/20/2023 Refill Family Practice [facility] [address] [place] [address] Be Strickland MD [address] [place] [id number] Type 2 diabetes mellitus with hemoglobin A1c goal of less than 8.0% ([facility]) Allergies Active Allergy Reactions Criticality Noted Date [...] A1c goal of less than 8.0% ([facility]) TAKE ONE TABLET BY MOUTH EVERY MORNING [...] 100 Tablet 3 06/29/2022 07/20/2023 Discontinue d(Refill) documented as of this encounter (statuses as of 07/20/2023) Active Problems Problem Noted Date Diagnosed Date Fatty liver 08/05/2021 Bradycardia 08/04/2019 Atherosclerosis of [place] co ronary artery of [place] heart without angina pectoris 10/03/2018 [place]IL[place] (obstructive [...] 05/20/2015 05/20/2015 Coronary artery disease invo lving [place] coronary artery without angina pectoris 05/20/2015 10/03/2018 HOARSENESS 10/10/2009 12/19/2019 Overview: Began 2007 Acute. NONALLERGIC RHINITIS 10/10/2009 020 Overview: Acute. EXAMINATION OF PARTICIPANT I N CLINICAL TRIAL- EVENT REGISTRY 05/19/2007 05/21/2008 Overview: Study Titile: Event Registry Project #[id number] PI: Jane Angulo MD Please call [phone] with study related questions EXAMINATION OF PARTICIPANT I N CLINICAL TRIAL: ISAR-REACT 3 05/18/2007 05/21/2008 Overview: ISAR-REACT 3: Prospective, randomized, double-blind, active controlled, multicenter trial of bivalirudin and unfractionated heparin in patients undergoing percutaneous coronary intervention Project #[id number] PI: Eduardo Ansari MD [phone] Supervisor Of Communications: Brittney Nascimento RN [phone] Abdominal aortic aneurysm 04/13/2007 EXAMINATION OF PARTICIPANT I N CLINICAL TRIAL: Genomic Markers for Patients with Cardiovascular Disease 03/20/2007 11/28/2009 Overview: Renamed Per Clinical Trials Billing Project. Study Title: Genomic Markers for Patients with Cardiovascular Disease Project # [id number] GENOMICS CARDIO RESEARCH OTHER*[id number] 03/20/2007 09/21/2016 Overview: Renamed Per Clinical Trials Billing Project. Study Title: Genomic Markers for Patients with Cardiovascular Disease Project # [id number] ADVANCE DIRECTIVE INFORMATION 03/24/2006 12/19/2019 Overview: Information [...] encounter Miscellaneous Notes * Telephone Encounter - Tina Gaspar RPh - 07/20/2023 4:03 PM ESTSigned Prescriptions: Disp Refills metFORMIN HCl ER 500 MG Oral Tablet Extend*100 Ta*0 Sig: TAKE ONE TABLET BY MOUTH EVERY MORNING Authorizing Provider: BE STRICKLAND Ordering User: TINA GASPAR * Telephone Encounter - Tina Gaspar RPh - 07/20/2023 4:03 PM EST RX authorized. Zero refills given until upcoming labs needed in 08/2023. Thank you, Tina Gaspar RP Clinical Pharmacist [facility] ([facility]) (formerly Telepharmacy) 07/20/23 4:03 PM [phone] documented in this encounter Plan of Treatment Upcoming Encounters Date Type Department Care Team (Late st Contact Info) Description 12/28/2023 9:20 AM EDT Office Visit [facility] [address] [place] [address] Be Strickland MD [address] [place] [phone] Scheduled Procedures Name Priority Associated Diagnoses Date/Ti me COLONOSCOPY FLEXIBLE PROXIMAL DIAGNOSTIC Recall Colon cancer screening Health Maintenance Due Date Last Done Comments Cologuard 1995 Fecal Occult Blood Test 1995 Sigmoidoscopy 1995 Hepatitis B (1 of 3 - Risk 3-dose series) 2010 Diabetic Eye Exam 05/29/2022 05/29/2021 HbA1c 02/27/2023 08/30/2022, 1111/2021, 11/25/2021, Additional history exists DXA Scan 03/01/2023 03/01/2016 COVID-19 Vaccine ( season) 2023 02/22/2022, 06/23/2021, 10/05/2020, Additional history exists GFR 08/30/2023 08/30/2022, 11/0 11/2021, 06/23/2021, Additional history exists Diabetic Foot Exam 09/14/2023 09/14/2022, 0 11/25/2021, 06/18/2020 Mammogram 09/30/2023 09/30/2022, 07/15, 07/23/2020, Additional history exists TSH 11/05/2023 11/04/2022, 08/15, 06/18/2022, Additional history exists Depression Screening 12/23/2023 12/22/2022 Albumin/Creatinine Ratio 07/04/202407/04/2 023, 06/18/2022, 06/23/2021, Additional history exists Colonoscopy [...] this encounter Medical Devices Implanted Type Area Traveling Representative Device Identifier Shelf Expiration Date Model / Serial / Lot Mx60 Intraoccular Lens Posterior Chamber Implanted:Qty: 1 on 01/02/2014 at OR [facility] Tissue - Non Human Right: Eye 11/12/2014 [id number] / [id number] / [id number] Lens 17.5 Mx60 - [id number] - [id number] Implanted:Qty: 1 on 12/31/2015 by Rodney Enriquez MD at OR [facility] Left: Eye [employer]OM[employer] : SURGICAL 04/14/2017 MX60-17.5 / [id number] / [id number] documented as of this encounter Visit Diagnoses Diagnosis Type 2 diabetes mellitus with hemoglobin A1c goal of less than 8.0% (HCC) documented in this encounter Advance Directives Latest [...] and were consensually agreed upon. Care Teams Design Assembler Relationship Specialty Start Date End Date Be Strickland MD [address] [place] [address] PCP - General Family Medicine 06/09/16 documented as of this encounter
--- OUTSIDE RECORDS SUMMARY | 2023-10-19 00:48 | External Medical Summary | Summary of Care ---
Author Name Unknown Organization [facility] Address [address] [address] Phone [phone] Care Team Providers Care Green Tire Inspector Name Role Phone Be Valdivia MD Primary Care Provider + Reason for Visit * Reason Onset Date Comments Follow Up Medication Administration 05/24/2023 Flu an d/or Pneumo Inj Encounter Details Date Type Department Care Team Description 05/24/2023 Office Visit Cardiology, [facility] [address] [facility] [address] Jeanette Mckeon CRNP [address] [facility] [address] Atherosclerosis of [place] coronary artery of [place] heart without angina pectoris*; S/P angioplasty with stent; Aortic ectasia, abdominal (HCC); HTN, goal below 140/90; Dyslipidemia, goal LDL below 70; Need for prophylactic vaccination and inoculation against influenza Allergies Active Allergy Reactions Severity Noted Date Comments Carlos Inhibitors 09/08/2004 cough Hydrodiuril 06/30/2007 Itchy eyes and throat, also hoarseness Latex 03/20/2007 Band-aids cause redness/rash at site Nitrofurantoin 08/03/2021 Headache, chest tightness, dizziness Penicillins 04/05/2003 hives, rash Sulfa Antibiotics 04/05/2003 rash Adhesive Tape 03/19/2007 rash documented as of this encounter (statuses as of 05/24/2023) Medications Medication Sig Dispensed Refills Start Date End Date Status ASPIRIN 81 MG PO TABS 1 TABLET DAILY 0 Active FISH OIL 1200 MG PO CAPSIndications:Ed brenton 2 daily 0 0 10/20/2007 Active Nitroglycerin 0.4 MG Sublingual Tablet Sublingual (Nitrostat)Vinayt ions:S/P angioplasty with stent DISSOLVE 1 TABLET UNDER THE TONGUE EVERY 5 MINUTES NEEDED FOR CHEST PAIN. DO NOT EXCEED A TOTAL OF 3 DOSES IN 15 MINUTES 25 Tablet 2 05/25/2022 Active Additional Information Patient not taking.Reported on 05/24/2023 metroNIDAZOLE 0.75 % External Gel (Metrogel)Indicati ons:Rosacea Apply topically to affected area 2 times a day. Apply to affected area 45 g 11 09/14/2022 Active Levothyroxine Sodium 100 MCG Oral Tablet (Levoxyl)Vinaytio ns:Hypothyroidism, unspecified type Take 1 Tablet by mouth in the morning. (at least 30 min prior to breakfast or other meds). 30 Tablet 5 01/14/2023 Active Metoprolol Succinate ER 25 MG Oral Tablet Extended Release 24 Hour (toPROL XL)Indications:Dys lipidemia, goal LDL below 100,S/P angioplasty with stent,Abdominal aortic aneurysm (HCC),HTN, goal below 140/90 TAKE ONE-HALF TABLET BY MOUTH EVERY MORNING 50 Tablet 3 02/04/2023 02/04/2024 Active Losartan Potassium 100 MG Oral Tablet (Cozaar)Indication s:HTN, goal below 140/90 TAKE ONE TABLET BY MOUTH EVERY MORNING 90 Tablet 3 09/14/2022 09/14/2023 Active Simvastatin 80 MG Oral Tablet (Zocor)Indications :S/P angioplasty with stent TAKE ONE TABLET BY MOUTH AT BEDTIME 90 Tablet 3 08/19/2022 08/19/2023 Active Clopidogrel Bisulfate 75 MG Oral Tablet (pLAVix)Indication s:S/P angioplasty with stent TAKE ONE TABLET BY MOUTH EVERY DAY 90 Tablet 3 08/04/2022 08/09/2023 Active metFORMIN HCl ER 500 MG Oral Tablet Extended Release 24 Hour (Glucophage XR)Indications:Typ e 2 diabetes mellitus with hemoglobin A1c goal of less than 8.0% (HCC) TAKE ONE TABLET BY MOUTH EVERY MORNING 100 Tablet 3 06/29/2022 07/23/2023 Active Zolpidem Tartrate 5 MG Oral Tablet (Ambien)Indication s:Chronic insomnia TAKE 1 TABLET BY MOUTH AT BEDTIME NEEDED FOR SLEEP 30 Tablet 3 02/22/2023 Active Famotidine 40 MG Oral Tablet (Pepcid)Indication s:Gastroesophageal reflux disease without esophagitis TAKE 1 TABLET BY MOUTH EVERY DAY 90 Tablet 1 03/24/2023 Active Sertraline HCl 100 MG Oral Tablet (Zoloft)Indication s:MDD (major depressive disorder), recurrent episode, mild (HCC) Take 1 Tablet by mouth in the morning. 14 Tablet 0 04/15/2023 Active documented as of this encounter (statuses as of 05/24/2023) Active Problems Problem Noted Date Fatty liver 08/05/2021 Bradycardia 08/04/2019 Atherosclerosis of [place] co ronary artery of [place] heart without angina pectoris 10/03/2018 BASILIA (obstructive sleep apnea) 09/12/2018 RLS (restless legs syndrome) 02/08/2018 Psychophysiologic insomnia 02/08/2018 Type 2 diabetes mellitus with hemoglobin A1c goal of less than 8.0% 06/15/2016 Well adult exam 06/09/2016 Overview: 08/04 US-aorta 2.8cm stable 2018 start metformin. Considering Shingrix Insomnia--failed rozerem. Consider doxepin/silenor, trazodone. Saamraien in past needs PA 02/27 AAA screen-- no aneurysm 2.7cm ectasia, stable. No f/u Needed. DEXA WNL janice 10y 2016 colon WNL janice 10y Hypothyroidism 02/20/2016 Seborrheic keratosis 02/10/2016 BMI 35-39 ISOLATED (SEE ACTUAL BMI) 01/13 Overview: Per Obesity Protocol, #19 Gastroesophageal reflux disease without esophagitis 10/10/2009 Dyslipidemia, goal LDL below 70 07/29/20 09 Overview: Per Lipid Taxonomy. S/P angioplasty with stent 04/13/2007 HTN, goal below 140/90 03/31/2005 documented as of this encounter (statuses as of 05/24/2023) Resolved Problems Problem Noted Date Resolved Date Depression with anxiety 02/10/2016 04/25/20 17 Screen for colon cancer 02/10/2016 02/01/20 18 Post-menopause 02/10/2016 01/31/2018 CAD (coronary artery disease) 05/20/2015 Coronary artery disease invo lving [place] coronary artery without angina pectoris 05/20/2015 10/03/2018 HOARSENESS 10/10/2009 12/19/2019 Overview: Began 2007 Acute. NONALLERGIC RHINITIS 10/10/2009 12/19/2019 Overview: Acute. EXAMINATION OF PARTICIPANT IN CLINICAL TRIAL- EV ENT REGISTRY 05/19/2007 05/21/2008 Overview: Study Titile: Event Registry Project #[id number] PI: Jane Angulo MD Please call [phone] with study related questions EXAMINATION OF PARTICIPANT IN CLINICAL TRIAL: IS AR-REACT 3 05/18/2007 05/21/2008 Overview: ISAR-REACT 3: Prospective, randomized, double-blind, active controlled, multicenter trial of bivalirudin and unfractionated heparin in patients undergoing percutaneous coronary intervention Project #[id number] PI: Eduardo Ansari MD [phone] Office Assistant Receptionist: Brittney Nascimento RN [phone] Abdominal aortic aneurysm 04/13/20072016 EXAMINATION OF PARTICIPANT I N CLINICAL TRIAL: Genomic Markers for Patients with Cardiovascular Disease 03/20/200711/28 Overview: Renamed Per Clinical Trials Billing Project. Study Title: Genomic Markers for Patients with Cardiovascular Disease Project # [id number] GENOMICS CARDIO RESEARCH OTHER*[id number] 200609/21/2016 Overview: Renamed Per Clinical Trials Billing Project. Study Title: Genomic Markers for Patients with Cardiovascular Disease Project # [id number] ADVANCE DIRECTIVE INFORMATION 03/24/2006 Overview: Information offered-patient declined. Historical. Special screening for malignant neoplasms, colon 03/04/2006 08/20/2008 Overview: Colonoscopy 03/03/06--diverticulosis, tortuous colon, repeat 10 years ACQUIRED HYPOTHYROID NEC 03/31/2005 016 Menopause 03/31/2005 08/20/2008 Dyslipidemia, goal to be determined 03/31/2005 07/29/2009 Overview: Per Lipid Taxonomy. documented as of this encounter (statuses as of 05/24/2023) Immunizations Name Administration Dates Next Due COVID-19 [...] drink = 0.6 oz pur e alcohol) Food Insecurity Answer Date Recorded Within the past 12 months, y ou worried that your food would run out before you got money to buy more. Never true 12/22/2022 Within the past 12 months, t he food you bought just didn't last and you didn't have money to get more. Never true 12/22/2022 Sex Assigned at Date Recorded Female 06/18/2022 9:43 AM E DT Job Start Date Occupation Industry Not on file Not on file Not on file documented as of this encounter Last Filed Vital Signs Vital Sign Reading Time Taken Comments Blood Pressure 136/70 05/24/2023 3:20 PM EDT Pulse 54 05/24/2023 3:20 PM EDT Temperature - - Respiratory Rate - - Oxygen Saturation - - Inhaled Oxygen Concentration - - Weight 86.6 kg (191 lb) 05/24/2023 3:20 PM EDT Height - - Body Mass Index 33.04 12/22/2022 9:21 AM EDT documented in this encounter Patient Instructions * Patient Instructions* ELEANOR Brito - 05/24/2023 4:44 PM EDT 1 y documented in this encounter Progress Notes * ELEANOR Brito - 05/24/2023 3:30 PM EDT 05/24/2023 Cardiology Follow Up Primary Athletic Monitor: Dr. Mckeon Cardiac Problems: CAD, history of NSTEMI 03/2007, status post PCI with x3 BMS to left circumflex and RCA in separate settings Hypertension Hyperlipidemia Mild abdominal aortic ectasia Sleep apnea HPI: Lindy Kinsey is a 72 year old female presents for routine follow up. Last seen in our office by ELEANOR Soto 03/25/22 feeling well at that time. Patient presents today feeling well. She offers no questions or concerns. CAD: Denies any chest pain or angina equivilent. Denies any change or decline in her functional capacity. HTN: At target today. HLD: Most recent labs stable. History of mild abdominal aortic ectasia: Most recent echo shows normal aortic root as well as proximal ascending aorta. Abdominal US in 2016 negative for AAA. Renal US 07/2021 suggest ectasia distalabdominal aorta 2.8cm. Patient is compliant on all medication therapies with no untoward effects. REVIEW OF SYSTEMS: See HPI for pertinent positives. All others negative other than those noted in the HPI. CONSTITUTIONAL: No change in weight, No weakness, No fatigue and No fevers, No sweats or chills. PULMONARY: No cough, sputum, or hemoptysis, No wheezing, No shortness or breath and No recent change in breathing. CARDIOVASCULAR: No chest pain, No dyspnea on exertion, No edema, No palpitations and No syncope. GASTROINTESTINAL: No abdominal pain, No change in bowel habits, No significant heartburn, No nausea, No vomiting, No diarrhea, No constipation, No blood in stools or black tarry stools. No dysphagia. HEMATOLOGIC: No abnormal bleeding and No bruising. NEUROLOGICAL: Normal balance, No headaches and No weakness. Review of patient's allergies indicates: Allergen Reactions Carlos Inhibitors cough Hydrodiuril Itchy eyes and throat, also hoarseness Latex Band-aids cause redness/rash at site Macrobid [Nitrofurantoin] Headache, chest tightness, dizziness Penicillins hives, rash Sulfa Antibiotics rash Tape [Adhesive Tape] rash Current Outpatient Medications Medication Sig Dispense Refill ASPIRIN 81 MG PO TABS 1 TABLET DAILY FISH OIL 1200 MG PO CAPS 2 daily 0 0 metroNIDAZOLE 0.75 % External Gel (Metrogel) Apply topically to affected area 2 times a day. Apply to affected area 45 g 11 Levothyroxine Sodium 100 MCG Oral Tablet (Levoxyl) Take 1 Tablet by mouth in the morning. (at least30 min prior to breakfast or other meds). 30 Tablet 5 Metoprolol Succinate ER 25 MG Oral Tablet Extended Release 24 Hour (toPROL XL) TAKE ONE-HALF TABLETBY MOUTH EVERY MORNING 50 Tablet 3 Losartan Potassium 100 MG Oral Tablet (Cozaar) TAKE ONE TABLET BY MOUTH EVERY MORNING 90 Tablet 3 Simvastatin 80 MG Oral Tablet (Zocor) TAKE ONE TABLET BY MOUTH AT BEDTIME 90 Tablet 3 Clopidogrel Bisulfate 75 MG Oral Tablet (pLAVix) TAKE ONE TABLET BY MOUTH EVERY DAY 90 Tablet 3 metFORMIN HCl ER 500 MG Oral Tablet Extended Release 24 Hour (Glucophage XR) TAKE ONE TABLET BY MOUTH EVERY MORNING 100 Tablet 3 Zolpidem Tartrate 5 MG Oral Tablet (Ambien) TAKE 1 TABLET BY MOUTH AT BEDTIME NEEDED FOR SLEEP 30 Tablet 3 Famotidine 40 MG Oral Tablet (Pepcid) TAKE 1 TABLET BY MOUTH EVERY DAY 90 Tablet 1 Sertraline HCl 100 MG Oral Tablet (Zoloft) Take 1 Tablet by mouth in the morning. 14 Tablet 0 Nitroglycerin 0.4 MG Sublingual Tablet Sublingual (Nitrostat) DISSOLVE 1 TABLET UNDER THE TONGUE EVERY 5 MINUTES NEEDED FOR CHEST PAIN. DO NOT EXCEED A TOTAL OF 3 DOSES IN 15 MINUTES (Patient not taking: Reported on 05/24/2023) 25 Tablet 2 No current facility-administered medications for this visit. Past Medical History: Diagnosis Date Coronary artery disease involving [place] coronary artery without angina pectoris 05/20/2015 Depression with anxiety 02/10/2016 Dyslipidemia, goal to be determined Fatty liver 08/05/2021 HOARSENESS 10/10/2009 Began 2007 HTN, goal below 140/90 03/31/2005 Prediabetes 06/15/2016 S/P angioplasty with stent 04/13/2007 Type 2 diabetes mellitus with hemoglobin A1c goal of less than 8.0% ([facility]) 06/15/2016 Family History Problem Relation Age of Onset Hypertension Father [place] age 42 Heart Disorder Father Heart Disorder Brother [place] age 47 Heart Disorder Brother [place] 50's Heart Disorder Sister age 50's Heart Disorder Sister Stroke Mother in 40's. no cancers except maternal aunt. Asthma Sister Breast Cancer Aunt (Maternal) 50 Heart disease Brother multiple pacemakers. [place] Social History Socioeconomic History Marital status: Occupational History Comment: retired- [employer] Tobacco Use Smoking status: Former Packs/day: 1.00 Years: 33.00 Pack years: 33.00 Types: Cigarettes Quit date: 11/04/2002 Years since quittin.5 Smokeless tobacco: Never Tobacco comments: no passive smoke exposures Vaping Use Vaping Use: Never used Substance and Sexual Activity Alcohol use: No Drug use: No Sexual activity: Yes Partners: Male Comment: . 2 kids. 4 grandsons, 2 greatgrandsons-local. Social History Narrative Likes-crafting, (country stuff). 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 Entered by: Fer Rios MD 10/10/2009 Social Determinants of Health Food Insecurity: No Food Insecurity Worried About Running Out of Food in the Last Year: Never true Ran Out of Food in the Last Year: Never true OBJECTIVE/PHYSICAL EXAMINATION: BP 136/70 (BP Cuff Size: Large) | Pulse 54 | Wt 86.6 kg (191 lb) | BMI 33.04 kg/m | BSA 1.97 m General: No acute distress. A+Ox3. HEENT: Normocephalic. Atraumatic. PERRL. EOMI. Conjunctiva and sclera clear. NECK: No carotid bruits. No JVD. Carotid upstrokes are brisk. Heart: RRR. S1 and S2 noted. No murmur. No rubs or gallops. PMI non displaced. Lungs: Clear to auscultation. No wheezes.No rhonchi. No rales. Abdomen: Normal bowel sounds. Soft. Nontender. No masses or organomegaly. No abdominal bruits. Extremities: No edema. No clubbing or cyanosis. Pulses: radial=2/4, posterior tibial=2/4, dorsalis pedis = 2/4. NEURO: No focal deficits. PSYCH: Appropriate affect and insight. DATA Labs & Imaging Reviewed Below: Echocardiogram 03/15/23 There was sinus bradycardia during the examination. The left ventricular cavity size is normal. The LV wall thickness is mildly increased (concentric). The left ventricular wall motion is normal. The qualitative LV ejection fraction is 55-59% (normal). The left ventricular diastolic function is mildly abnormal (grade I). There is no significant valvular disease Holter 11/2018 1. Duration - 24 hours 2. Quality - fair 3. Dominant rhythm - sinus 4. PACs - very rare 5. PVCs - none 6. Symptoms - none No sustained arrhythmias. Slowest rates occurring at 0200 and 0500 Confirmed by UVALDO BARAJAS^[id number], MESERET ([id number]) on 11/17/2018 8:32:01 AM Renal US with incidental finding 08/04/2021 IMPRESSION 1. Normal sonographic appearance of the kidneys. Bladder not well evaluated due to underdistention. 2. Fatty infiltration of the liver. 3. Ectasia distal abdominal aorta 2.8 cm. ERIKA 10/2017 The examination is adequate to evaluate the referral indication. The stress echo is negative for inducible ischemia. Compared to prior study of 02/07/2013, there is no significant change. Exercise capacity is average . Heart rate response to stress was normal. Blood pressure response to exercise was hypertensive. The stress EKG response showed no evidence of ischemia. There is very mild hypokinesis of the basal inferior and posterior monroy at rest With stress, heart function becomes hyperdynamic and no new wall motion abnormalities are induced. Subtle inferior posterior basal abnormality remains but does improve The left ventricular systolic function is normal. The qualitative LV ejection fraction is 55-59% (normal). The left ventricular diastolic function is mildly abnormal (grade I). No significant valvular disease is present ASSESSMENT/PLAN: 72 year old year old female 1. Atherosclerosis of [place] coronary artery of [place] heart without angina pectoris 2. S/P angioplasty with stent -Doing well from a cardiac standpoint. Offers no concerns. No change or decrease in functional capacity -Continue GDMT with Toprol xl, Losartan, Simvastatin, Plavix and ASA 81mg. - EKG COMPLETE (TRACING AND INTERP) 3. Aortic ectasia, abdominal (HCC) -Incidental finding on renal US dated 07/2021 -Asymptomatic -BP controlled. -Discussed good BP control and plan for AAA duplex next year for surveillance. 4. HTN, goal below 140/90 -Controlled. Continue Toprol xl and Losartan - EKG COMPLETE (TRACING AND INTERP) 5. Dyslipidemia, goal LDL below 70 -Most recent labs show effective control. -Continue on simvastatin, fish oil and ASA 81mg 6. Need for prophylactic vaccination and inoculation against influenza - INFLUENZA VACC, QUAD, HIGH DOSE (FLUZONE HD) DISPOSITION: Follow up 1 year or if symptoms worsen/fail to improve. All questions were answered to the patients satisfaction. Patient advised to report to ED with any and all emergencies. The patient agrees to the above plan and will call with additional questions or concerns. ELEANOR [facility], [address] [place] [address] I spent a total of 28 minutes on the date of service in preparation, delivery, and documentation ofthe care provided to Lindy Kinsey excluding any time spent in the performance of separately billed services. This chart was completed in part utilizing [employer] Speech Voice Recognition Software. Grammatical errors, random word insertions, pronoun errors, and incomplete sentences are an occasional consequence of this system due to software limitations, ambient noise, and hardware issues. Any formal questions or concerns about the content, text, or information contained within the body of this dictation should be directly addressed to the provider for clarification. * Mick Farrar RN - 05/24/2023 3:20 PM EDT PRE - ADMINISTRATION DOCUMENTATION Are you experiencing any cold symptoms or fever? No Have you had Guillain-Union Syndrome (an illness that causes paralysis) within the last 6 weeks? Yes Have you had the flu shot in the past? YES Have you ever had a reaction to the flu shot? No Mick Farrar RN, 05/24/2023 3:20 PM Immunization Administration Documentation Time Out Procedure Performed: Yes Patient Identified (Ask Name/Date of ): Yes Does the patient have a fever greater than 101 degrees today? No Patient allergic to latex? No VFC Stock: No Immunization(s) verified: No, Immunization Name: Flu, VIS Sheet(s) given: No Verified Side and Site: Yes Verified Shot(s) with Parent(s)/Patient: Yes documented in this encounter Nursing Notes * Mick Farrar RN - 05/24/2023 3:19 PM EDT Examination Room: room 7 Name: Lindy Kinsey Date of : (1950). Reason for Visit: for follow up Interim Hospitalization(s): denies Problems/Concerns: denies Chest Pain/SOB: denies [facility] Discussed: Yes My [facility] is a way you can talk to your provider online through e-mail. Would you like to sign up? I can activate it for you? ALREADY ACTIVE Patient was instructed to not get up on the exam table until directed and assisted by their provider; patient is to remain seated in the chair/ wheelchair/ exam table for fall prevention and safety reasons. Patient is aware to have assistance to step down off exam table with personnel. Patient voiced full comprehension of instructions. documented in this encounter Plan of Treatment Upcoming Encounters Date Type Specialty Care Team Description 06/24/2023 Office Visit Family Medicine Maryam Hou CRNP [address] [place] [address] 12/28/2023 Office Visit Family Medicine Be Valdivia MD [address] [place] [address] Scheduled Orders Name Type Priority Associated Diagnoses Orde r Schedule EKG COMPLETE (TRACING AND INTERP) EKG Routine Atherosclerosis of [place] coronary artery of [place] heart without angina pectoris HTN, goal below 140/90 S/P angioplasty with stent Ordered: 05/24/2023 Scheduled Procedures Name Priority Associated Diagnoses Date/Ti me COLONOSCOPY FLEXIBLE PROXIMAL DIAGNOSTIC Recall Colon cancer screening Health Maintenance Due Date Last Done Comments Cologuard 1995 Fecal Occult Blood Test 1995 Sigmoidoscopy 1995 DIABETES-EYE EXAM 05/29/2022 05/29/2021 HbA1c 02/27/2023 08/30/2022, 11/11/2021, 11/25/2021, Additional history exists DXA Scan 03/01/2023 03/01/2016 COVID-19 Vaccine ( season) 2023 02/22/2022, 06/23/2021, 10/05/2020, Additional history exists Albumin/Creatinine Ratio 06/18/2023 022, 06/23/2021, 06/18/2020, Additional history exists GFR 08/30/2023 08/30/2022, 11/2021, 06/23/2021, Additional history exists Diabetic Foot Exam 09/14/2023 09/14/2022, 0 11/25/2021, 06/18/2020 Mammogram 09/30/2023 09/30/2022, 07/15, 07/23/2020, Additional history exists TSH 11/05/2023 11/04/2022, 08/15, 06/18/2022, Additional history exists Depression Screening 12/23/2023 12/22/2022 Colonoscopy 03/18/2026 03/18/2016, 11/2015, 03/03/2006 Colorectal Cancer [...] this encounter Medical Devices Implanted Type Area It Desktop Support Technician Device Identifier Shelf Expiration Date Model / Serial / Lot [id number] Intraoccular Lens Posterior Chamber Implanted:Qty: 1 on 01/02/2014 at OR [facility] Tissue - Non Human Right: Eye 11/12/2014 [id number] / [id number] / [id number] Lens 17.5 Mx60 - [id number] - [id number] Implanted:Qty: 1 on 12/31/2015 by Rodney Enriquez MD at OR [facility] Left: Eye [employer] : SURGICAL 04/14/2017 [id number] / [id number] / [id number] documented as of this encounter Visit Diagnoses Diagnosis Atherosclerosis of [place] coronary artery of [place] heart without angina pectoris- Primary S/P angioplasty with stent Postsurgical percutaneous transluminal coronary angioplasty status Aortic ectasia, abdominal (HCC) Abdominal aortic ectasia HTN, goal below 140/90 Unspecified essential hypertension Dyslipidemia, goal LDL below 70 Other and unspecified hyperlipidemia Need for prophylactic vaccination and inoculation against influenza documented in this encounter Advance Directives Latest [...] and were consensually agreed upon. Care Teams Green Tire Inspector Relationship Specialty Start Date End Date Be Valdivia MD [address] [place] [address] PCP - General Family Medicine 06/09/16 documented as of this encounter"
[2023-10-19] MEDS: LEVOTHYROXINE SODIUM 100 MCG TABLET PO SCH (05:34)
[2023-10-19 06:29] LABS: Basophils # (auto) 0.04 K/uL (0.00-0.20); Basophils % (auto) 0.4 %; Eosinophils # (auto) 0.12 K/uL (0.00-0.50); Eosinophils % (auto) 1.1 %; Hematocrit (blood only) 31.4 % (37.0-47.0); Hemoglobin 10.4 g/dl (12.0-16.0); Immature Granulocytes # (auto) 0.03 K/uL (0.01-0.20); Immature Granulocytes % (auto) 0.3 %; Lymphocytes # (auto) 2.27 K/uL (1.20-3.40); Mean Corpuscular Hgb Conc 33.1 g/dL (32.0-36.0); Mean Corpuscular Volume 93.5 fL (80.0-100.0); Mean Platelet Volume 10.7 fL (9.4-12.4); Monocytes # (auto) 0.76 K/uL (0.11-0.59); Neutrophils # (auto) 7.59 K/uL (1.40-6.50); Neutrophils % (auto) 70.2 %; Platelet Count 204 K/uL (130-400); RDW Coefficient of Variation 12.9 % (11.5-14.5); RDW Standard Deviation 44.1 fL (36.4-46.3); Red Blood Count 3.36 M/uL (4.20-5.40); White Blood Count 10.81 K/ul (4.8-10.8)
[2023-10-19 06:42] LABS: BUN Creatinine Ratio 23.2 (10-20); Calcium 8.5 mg/dl (8.6-10.3); Creatinine Clr Calc Pharmacy 63.5 ml/min; Est GFR (African American) 82.3 ml/min; Magnesium 1.8 mg/dl (1.7-2.4); Potassium 3.9 mmol/L (3.5-5.1)
[2023-10-19 07:09] LABS: Estimated Average Glucose 148 mg/dl; Hemoglobin A1C 6.8 % (4.5-5.6)
[2023-10-19] MEDS: ENOXAPARIN INJ 40 MG/0.4 ML SYR SQ SCH (07:45)
[2023-10-19] MEDS: FAMOTIDINE 40 MG TABLET PO SCH (07:45)
[2023-10-19] MEDS: LOSARTAN POTASSIUM 50 MG TAB PO SCH (07:46)
[2023-10-19] MEDS: CLOPIDOGREL BISULFATE 75 MG TAB PO SCH (07:46)
[2023-10-19] MEDS: SERTRALINE HCL 100 MG TABLET PO SCH (07:46)
[2023-10-19] MEDS: METOPROLOL SUCC 25MG EXT REL TAB PO SCH (07:46)
[2023-10-19] MEDS: ASPIRIN 81 MG ECTAB PO SCH (07:47)
[2023-10-19 10:58] LABS: A calco-baum cmplx NotReported Not Detected (NotDetected); Bact fragilis Not Reported Not Detected (NotDetected); Blood Culture Id Panel See PCR Comment (NotDetected); C auris Not Reported Not Detected (NotDetected); CTX-M Resistant Gene Not Detected (NotDetected); Calbicans Not Reported Not Detected (NotDetected); Candida glabrata Not Reported Not Detected (NotDetected); Candida krusei Not Reported Not Detected (NotDetected); Cneoformans/gatti Not Reported Not Detected (NotDetected); Cparapsilosis Not Reported Not Detected (NotDetected); E cloacae compx Not Reported Not Detected (NotDetected); Efaecalis Not Reported Not Detected (NotDetected); Efaecium Not Reported Not Detected (NotDetected); Enterobacterales DETECTED (NotDetected); Enterobacterales Not Reported DETECTED (NotDetected); Escherichia coli Not Reported DETECTED (NotDetected); H influenzae Not Reported Not Detected (NotDetected); IMP Resistant Gene Not Detected (NotDetected); K aerogenes Not Reported Not Detected (NotDetected); KPC Resistant Gene Not Detected (NotDetected); Koxytoca Not Reported Not Detected (NotDetected); Kpneumoniae grp Not Reported Not Detected (NotDetected); Lmonocyt Not Reported Not Detected (NotDetected); N meningitidis Not Reported Not Detected (NotDetected); NDM Resistant Gene Not Detected (NotDetected); OXA 48 Like Resistant Gene Not Detected (NotDetected); P aeruginosa Not Reported Not Detected (NotDetected); Proteus spp Not Reported Not Detected (NotDetected); Salmonella spp Not Reported Not Detected (NotDetected); Smarcescens Not Reported Not Detected (NotDetected); Staph lugdunensis Not Reported Not Detected (NotDetected); Staph spp. Not Reported Not Detected (NotDetected); Staphaureus Not Reported Not Detected (NotDetected); Staphepi Not Reported Not Detected (NotDetected); Stenmaltophilia Not Reported Not Detected (NotDetected); Strep agal(GrpB) Not Reported Not Detected (NotDetected); Strep pneum Not Reported Not Detected (NotDetected); Strep pyog (GrpA) Not Reported Not Detected (NotDetected); Strep spp Not Reported Not Detected (NotDetected); VIM Resistant Gene Not Detected (NotDetected); mcr-1 Colistin Resistant Gene Not Detected (NotDetected)
[2023-10-19] MEDS: SODIUM CHLORIDE 0.9% 1,000 ML IV SCH (12:55)
[2023-10-19] MEDS: DOXYCYCLINE HYCLATE 100 MG CAP PO SCH (12:58)
--- NOTE | 2023-10-19 17:30 | Hospitalist Progress Note ---
Date of Service October 19, 2023 Assessment & Plan (1) Acute pyelonephritis: Plan: 73-year-old female with past medical history significant for type 2 diabetes, hyperlipidemia, hypothyroidism, obstructive obstructive apnea, hypertension, CAD status post stent, history of bradycardia, GERD, fatty liver, restless leg syndrome, psychophysiological insomnia, comes with dizziness and weakness going on for last 1 week and found to have UTI. She is coughing and bringing phlegm for some time now. Getting short of breath on exertion. Having bilateral flank pain. Denies any chest pain. No headache. Vision is okay. Currently no runny nose or sore throat or earaches. No abdominal pain. Somewhat constipated. Denies any blood in the stools. Normal bladder movements.. Resting comfortably and hemodynamically stable. Acute pyelonephritis Gram-negative bacteremia --CT ABD:There is heterogeneous enhancement in the mid to lower pole of the left kidney with surrounding inflammation. The appearance favors pyelonephritis. Correlate with clinical findings and urinalysis. Cholelithiasis. Advanced coronary artery atherosclerosis. Colonic diverticulosis without CT evidence of acute diverticulitis. --Urine culture growing gram-negative --Blood culture growing gram-negative Continue IV Rocephin Received IV fluids Monitor Acute bronchitis ---CXR:Cardiomegaly with no active disease in the chest. --BioFire negative Continue Rocephin, also added doxycycline Monitor Weakness and dizziness Dizziness improved with IV fluids Continue PT OT DM II HbA1c 6.8 Hold p.o. meds Continue insulin while hospitalized Monitor BGs CAD s/p stents On aspirin, Plavix, metoprolol succinate and statin Hypertension Continue metoprolol succinate and losartan monitor BP GERD Continue Pepcid Hypothyroidism Continue levothyroxine Obstructive sleep apnea CPAP nightly DVT Px: Lovenox SQ Code Status Full code Admission and Anticipated Discharge Date Admission Date: October 18, 2023 Subjective Patient is seen and examined at bedside Dizziness slowly improving Admits to have generalized weakness Also reports minimal right flank discomfort States having cough with yellowish expectoration Denies any chest pain, dyspnea No other complaints Review of Systems Review of Systems: All systems reviewed & are unremarkable except as noted in Subjective Physical Exam Physical Exam: Physical Exam: Vitals signs as noted above General Appearance:Obese, no apparent distress Head: normocephalic, Atraumatic Eyes: normal inspection, EOMI Neck: supple, Trachea midline Respiratory/Chest: Normal breath sounds, CTA, No accessory muscle use Cardiovascular: S1, S2, No murmur Abdomen/GI:Soft, Non tender, Bowel sounds present Extremities/Musculoskeletal:normal inspection, no edema Neurologic/Psych:AAOX3, grossly no focal neurological deficits Skin: normal color, warm Results & Data Results & Data Vital Signs (Past 12 Hours) Vital Signs Temp Pulse Resp BP BP Pulse Ox O2 Del Method 10/19/23 14:34 36.5 C 52 L 20 119/67 95 Room Air 10/19/23 07:48 53 L 116/59 L 10/19/23 07:39 36.7 C 53 L 16 120/56 L 93 Room Air Laboratory Results Short CBC 10/19/23 Range/Units 05:29 WBC 10.81 H (4.8-10.8) K/ul Hgb 10.4 L (12.0-16.0) g/dl Hct 31.4 L (37.0-47.0) % Plt Count 204 (130-400) K/uL BMP 10/19/23 05:29 Sodium 138 Potassium 3.9 Chloride 109 H Carbon Dioxide 21 BUN 19 Creatinine 0.82 Glucose 101 H Calcium 8.5 L Urine 10/18/23 Range/Units Unknown Urine Color Yellow Urine Appearance Turbid A (Clear) Urine pH 5.5 (4.5-7.5) Ur Specific [place] 1.017 (1.000-1.030) Urine Protein 1+ H (Negative) Urine Glucose (UA) Negative (Negative)
[2023-10-19] MEDS: cefTRIAXone SODIUM 2,000 MG in DEXTROSE 5 % MINI-B 50 ML IV SCH (18:05)
[2023-10-20 07:37] LABS: Hemoglobin 10.1 g/dl (12.0-16.0); Mean Corpuscular Hgb Conc 32.6 g/dL (32.0-36.0); Mean Corpuscular Volume 95.1 fL (80.0-100.0); Mean Platelet Volume 10.4 fL (9.4-12.4); Platelet Count 209 K/uL (130-400); RDW Coefficient of Variation 12.7 % (11.5-14.5); RDW Standard Deviation 44.6 fL (36.4-46.3); Red Blood Count 3.26 M/uL (4.20-5.40); White Blood Count 7.35 K/ul (4.8-10.8)
[2023-10-20 07:57] LABS: BUN Creatinine Ratio 22.1 (10-20); Calcium 8.5 mg/dl (8.6-10.3); Creatinine Clr Calc Pharmacy 67.7 ml/min; Est GFR (African American) 88.8 ml/min; Est GFR (Non-African American) 76.6 ml/min; Potassium 4.4 mmol/L (3.5-5.1)
--- NOTE | 2023-10-20 11:38 | XRay Report ---
XR chest 1V portable HISTORY: 73 years-old Female Hypoxia COMPARISON: 10/18/2023 TECHNIQUE: AP view the chest FINDINGS: Cardiac silhouette is enlarged. Pulmonary vascular congestion. No pneumothorax, or pleural effusion. Mild chronic interstitial coarsening. Bibasilar atelectasis versus scarring is unchanged. IMPRESSION: 1. Cardiomegaly without overt pulmonary edema. 2. Chronic interstitial coarsening suggestive of fibrosis. ACT 112: Negative or not required by law. The above report was generated using voice recognition software. It may contain grammatical, syntax o r spelling errors. Electronically signed by: Jake Hdz M.D. 10/20/2023 11:35 AM
--- NOTE | 2023-10-20 16:31 | Hospitalist Progress Note ---
Date of Service October 20, 2023 Assessment & Plan (1) Acute pyelonephritis: Plan: 73-year-old female with past medical history significant for type 2 diabetes, hyperlipidemia, hypothyroidism, obstructive obstructive apnea, hypertension, CAD status post stent, history of bradycardia, GERD, fatty liver, restless leg syndrome, psychophysiological insomnia, comes with dizziness and weakness going on for last 1 week and found to have UTI. She is coughing and bringing phlegm for some time now. Getting short of breath on exertion. Having bilateral flank pain. Denies any chest pain. No headache. Vision is okay. Currently no runny nose or sore throat or earaches. No abdominal pain. Somewhat constipated. Denies any blood in the stools. Normal bladder movements.. Resting comfortably and hemodynamically stable. Acute pyelonephritis Gram-negative bacteremia --CT ABD:There is heterogeneous enhancement in the mid to lower pole of the left kidney with surrounding inflammation. The appearance favors pyelonephritis. Correlate with clinical findings and urinalysis. Cholelithiasis. Advanced coronary artery atherosclerosis. Colonic diverticulosis without CT evidence of acute diverticulitis. --Urine culture grew E. coli --Blood culture growing gram-negative Continue IV Rocephin Received IV fluids Monitor Acute bronchitis ---CXR:Cardiomegaly with no active disease in the chest. --BioFire negative Continue Rocephin, also added doxycycline Monitor Chronic diastolic heart failure Hypoxia with exertion --CXR:Cardiomegaly without overt pulmonary edema. Chronic interstitial coarsening suggestive of fibrosis. --ECHO: Left ventricle is normal in size. Moderate concentric LVH. Left ventricle wall motion is normal. EF 55 to 60%. Grade 2 diastolic dysfunction. No significant valvular disease. -- Will need to step prior to discharge Not on diuretics at home Monitor volume status Weakness and dizziness Dizziness improved with IV fluids Continue PT OT DM II HbA1c 6.8 Hold p.o. meds Continue insulin while hospitalized Monitor BGs CAD s/p stents On aspirin, Plavix, metoprolol succinate and statin Hypertension Continue metoprolol succinate and losartan monitor BP GERD Continue Pepcid Hypothyroidism Continue levothyroxine Obstructive sleep apnea CPAP nightly DVT Px: Lovenox SQ Code Status Full code Admission and Anticipated Discharge Date Admission Date: October 18, 2023 Subjective Patient is seen and examined at bedside Still has cough, dyspnea on exertion Dysuria, flank pain resolved No other complaints RN noted desaturation with PT earlier today Review of Systems Review of Systems: All systems reviewed & are unremarkable except as noted in Subjective Physical Exam Physical Exam: Physical Exam: Vitals signs as noted above General Appearance:Obese, no apparent distress Head: normocephalic, Atraumatic Eyes: normal inspection, EOMI Neck: supple, Trachea midline Respiratory/Chest: Normal breath sounds, CTA, No accessory muscle use Cardiovascular: S1, S2, No murmur Abdomen/GI:Soft, Non tender, Bowel sounds present Extremities/Musculoskeletal:normal inspection, no edema Neurologic/Psych:AAOX3, grossly no focal neurological deficits Skin: normal color, warm Results & Data Results & Data Vital Signs (Past 12 Hours) Vital Signs Temp Pulse Resp BP Pulse Ox O2 Del Method 10/20/23 14:43 36.5 C 60 18 175/75 H 94 Room Air 10/20/23 11:21 93 10/20/23 09:33 Room Air 10/20/23 07:02 36.7 C 54 L 16 105/50 L 91 Room Air Laboratory Results Short CBC 10/20/23 Range/Units 07:03 WBC 7.35 (4.8-10.8) K/ul Hgb 10.1 L (12.0-16.0) g/dl Hct 31.0 L (37.0-47.0) % Plt Count 209 (130-400) K/uL BMP 10/20/23 07:03 Sodium 140 Potassium 4.4 Chloride 113 H Carbon Dioxide 22 BUN 17 Creatinine 0.77 Glucose 103 H Calcium 8.5 L
[2023-10-21 08:44] LABS: Hematocrit (blood only) 34.9 % (37.0-47.0); Mean Corpuscular Hgb Conc 31.5 g/dL (32.0-36.0); Mean Corpuscular Volume 95.1 fL (80.0-100.0); Mean Platelet Volume 10.5 fL (9.4-12.4); Platelet Count 262 K/uL (130-400); RDW Coefficient of Variation 12.8 % (11.5-14.5); RDW Standard Deviation 44.4 fL (36.4-46.3); Red Blood Count 3.67 M/uL (4.20-5.40); White Blood Count 8.35 K/ul (4.8-10.8)
[2023-10-21 09:21] LABS: BUN Creatinine Ratio 20.8 (10-20); Calcium 9.2 mg/dl (8.6-10.3); Creatinine Clr Calc Pharmacy 67.7 ml/min; Est GFR (African American) 88.8 ml/min; Est GFR (Non-African American) 76.6 ml/min; Potassium 4.3 mmol/L (3.5-5.1)
[2023-10-21] MEDS: ADVANCED PROBIOTIC 625 MG CAPSULE PO SCH (14:34)
--- NOTE | 2023-10-21 15:15 | Hospitalist Progress Note ---
Date of Service October 21, 2023 Assessment & Plan (1) Acute pyelonephritis: Plan: 73-year-old female with past medical history significant for type 2 diabetes, hyperlipidemia, hypothyroidism, obstructive obstructive apnea, hypertension, CAD status post stent, history of bradycardia, GERD, fatty liver, restless leg syndrome, psychophysiological insomnia, comes with dizziness and weakness going on for last 1 week and found to have UTI. She is coughing and bringing phlegm for some time now. Getting short of breath on exertion. Having bilateral flank pain. Denies any chest pain. No headache. Vision is okay. Currently no runny nose or sore throat or earaches. No abdominal pain. Somewhat constipated. Denies any blood in the stools. Normal bladder movements.. Resting comfortably and hemodynamically stable. Acute pyelonephritis Gram-negative bacteremia --CT ABD:There is heterogeneous enhancement in the mid to lower pole of the left kidney with surrounding inflammation. The appearance favors pyelonephritis. Correlate with clinical findings and urinalysis. Cholelithiasis. Advanced coronary artery atherosclerosis. Colonic diverticulosis without CT evidence of acute diverticulitis. --Urine culture grew E. coli --Blood culture: E.coli Continue IV Rocephin>> transition to Levaquin Received IV fluids Monitor Acute bronchitis ---CXR:Cardiomegaly with no active disease in the chest. --BioFire negative Continue Rocephin, also added doxycycline>> transition to Levaquin Monitor Will do 2 step prior to discharge Chronic diastolic heart failure Hypoxia with exertion --CXR:Cardiomegaly without overt pulmonary edema. Chronic interstitial coarsening suggestive of fibrosis. --ECHO: Left ventricle is normal in size. Moderate concentric LVH. Left ventricle wall motion is normal. EF 55 to 60%. Grade 2 diastolic dysfunction. No significant valvular disease. -- Will need to step prior to discharge Not on diuretics at home Monitor volume status Weakness and dizziness Dizziness improved with IV fluids Continue PT OT DM II HbA1c 6.8 Hold p.o. meds Continue insulin while hospitalized Monitor BGs CAD s/p stents On aspirin, Plavix, metoprolol succinate and statin Hypertension Continue metoprolol succinate and losartan monitor BP GERD Continue Pepcid Hypothyroidism Continue levothyroxine Obstructive sleep apnea CPAP nightly DVT Px: Lovenox SQ Code Status Full code Disposition Home Admission and Anticipated Discharge Date Admission Date: October 18, 2023 Subjective Patient is seen and examined at bedside States feeling a lot better today Still has minimal cough but otherwise no complaints Denies any dyspnea, chest pain, dizziness, nausea, vomiting, abdominal pain Eager to get discharged Will do 2 step Today Review of Systems Review of Systems: All systems reviewed & are unremarkable except as noted in Subjective Physical Exam Physical Exam: Physical Exam: Vitals signs as noted above General Appearance:Obese, no apparent distress Head: normocephalic, Atraumatic Eyes: normal inspection, EOMI Neck: supple, Trachea midline Respiratory/Chest: Normal breath sounds, CTA, No accessory muscle use Cardiovascular: S1, S2, No murmur Abdomen/GI:Soft, Non tender, Bowel sounds present Extremities/Musculoskeletal:normal inspection, no edema Neurologic/Psych:AAOX3, grossly no focal neurological deficits Skin: normal color, warm Results & Data Results & Data Vital Signs (Past 12 Hours) Vital Signs Temp Pulse Resp BP Pulse Ox O2 Del Method 10/21/23 07:58 36.4 C L 50 L 14 127/57 L 95 Room Air 10/21/23 07:28 Room Air Laboratory Results Short CBC 10/21/23 Range/Units 06:57 WBC 8.35 (4.8-10.8) K/ul Hgb 11.0 L (12.0-16.0) g/dl Hct 34.9 L (37.0-47.0) % Plt Count 262 (130-400) K/uL BMP 10/21/23 06:57 Sodium 141 Potassium 4.3 Chloride 111 H Carbon Dioxide 22 BUN 16 Creatinine 0.77 Glucose 96 Calcium 9.2
--- NOTE | 2023-10-21 15:28 | Discharge Summary ---
Date of Service October 21, 2023 Admission HPI Per Admitting Provider 73-year-old female with past medical history significant for type 2 diabetes, hyperlipidemia, hypothyroidism, obstructive sleep apnea, hypertension, CAD status post stent, history of bradycardia, GERD, fatty liver, restless leg syndrome, psychophysiological insomnia, comes with dizziness and weakness going on for last 1 week and found to have UTI. She is coughing and bringing phlegm for some time now. Getting short of breath on exertion. Having bilateral flank pain. Denies any chest pain. No headache. Vision is okay. Currently no runny nose or sore throat or earaches. No abdominal pain. Somewhat constipated. Denies any blood in the stools. Normal bladder movements.. Resting comfortably and hemodynamically stable. Past med history as mentioned above Past surgical history. Colonoscopy. Cataracts. Total hysterectomy. S/p cardiac stent placement. Social history. . Quit smoking 2002. Smoked 1 pack a day for 33 years. No alcohol use. No drug use. Family history. Brother had [place]. Brother had multiple pacemakers. Father had heart disorder. Hypertension. Mother had stroke. Sister has asthma. Maternal aunt had breast cancer Admission Exam Per Admitting Provider General- Not in distress. Head- atraumatic Eyes- PERRL. ENT- oropharynx clear Neck- supple, no JVD. Lungs- clear to auscultation no wheezing or crackles. Heart- regular rhythm; no murmur, no gallop. Abdomen- normal bowel sounds, soft, nontender, no distension.No cva tenderness Extremities- no pretibial edema, no erythema seen. Neuro- alert, oriented PERRL, no facial palsy; no dysarthria; Skin- warm & dry Principal Diagnosis Acute pyelonephritis E. coli bacteremia Acute bronchitis Discharge Data Allergies Allergy/AdvReac Type Severity Reaction Status Date / Time adhesive Allergy Intermediate REDDENED Verified 10/18/23 18:23 RASH hydrochlorothiazide Allergy Intermediate ITCHY Verified 10/18/23 18:23 [From HydroDiuril] THROAT & EYES Penicillins Allergy Intermediate HIVES/RASH Verified 10/18/23 18:23 Sulfa (Sulfonamide Allergy Intermediate RASH Verified 10/18/23 18:23 Antibiotics) DIRK Inhibitors AdvReac Intermediate Cough Verified 10/18/23 18:23 nitrofurantoin AdvReac Intermediate CHEST Verified 10/18/23 18:23 [From Macrobid] TIGHTNESS, HEADACHE, DIZZINESS Consultations 10/18/23 19:28 ED Decision to Admit Stat Procedures Performed Laboratory Results WBC 8.35 K/ul (4.8-10.8) 10/21/23 06:57 RBC 3.67 M/uL (4.20-5.40) L 10/21/23 06:57 Hgb 11.0 g/dl (12.0-16.0) L 10/21/23 06:57 Hct 34.9 % (37.0-47.0) L 10/21/23 06:57 MCV 95.1 fL (80.0-100.0) 10/21/23 06:57 MCH 30.0 pg (25.0-34.0) 10/21/23 06:57 MCHC 31.5 g/dL (32.0-36.0) L 10/21/23 06:57 RDW Std Deviation 44.4 fL (36.4-46.3) 10/21/23 06:57 RDW Coeff of David 12.8 % (11.5-14.5) 10/21/23 06:57 Plt Count 262 K/uL (130-400) 10/21/23 06:57 MPV 10.5 fL (9.4-12.4) 10/21/23 06:57 Immature Gran % (Auto) 0.3 % 10/19/23 05:29 Neut % (Auto) 70.2 % 10/19/23 05:29 Lymph % (Auto) 21.0 % 10/19/23 05:29 Ada % (Auto) 7.0 % 10/19/23 05:29 Eos % (Auto) 1.1 % 10/19/23 05:29 Baso % (Auto) 0.4 % 10/19/23 05:29 Neut # (Auto) 7.59 K/uL (1.40-6.50) H 10/19/23 05:29 Lymph # (Auto) 2.27 K/uL (1.20-3.40) 10/19/23 05:29 Ada # (Auto) 0.76 K/uL (0.11-0.59) H 10/19/23 05:29 Eos # (Auto) 0.12 K/uL (0.00-0.50) 10/19/23 05:29 Baso # (Auto) 0.04 K/uL (0.00-0.20) 10/19/23 05:29 Immature Gran # (Auto) 0.03 K/uL (0.01-0.20) 10/19/23 05:29 Sodium 141 mmol/L (136-145) 10/21/23 06:57 Potassium 4.3 mmol/L (3.5-5.1) 10/21/23 06:57 Chloride 111 mmol/L (98-107) H 10/21/23 06:57 Carbon Dioxide 22 mmol/L (21-32) 10/21/23 06:57 Anion Gap 8 (3-11) 10/21/23 06:57 BUN 16 mg/dl (6-23) 10/21/23 06:57 Creatinine 0.77 mg/dl (0.6-1.2) 10/21/23 06:57 Est Cr Clr Drug Dosing 67.7 ml/min 10/21/23 06:57 Est GFR ( Amer) 88.8 ml/min 10/21/23 06:57 Est GFR (Non-Af Amer) 76.6 ml/min 10/21/23 06:57 BUN/Creatinine Ratio 20.8 (10-20) H 10/21/23 06:57 Glucose 96 mg/dl (70-99(Fasting)) 10/21/23 06:57 POC Glucose 126 mg/dl (70-99) H 10/21/23 11:48 Estimat Average Glucose 148 mg/dl 10/19/23 05:29 Hemoglobin A1c 6.8 % (4.5-5.6) H 10/19/23 05:29 Calcium 9.2 mg/dl (8.6-10.3) 10/21/23 06:57 Magnesium 1.8 mg/dl (1.7-2.4) 10/19/23 05:29 Total Bilirubin 0.7 mg/dl (0.2-1.0) 10/18/23 14:50 AST 14 U/L (13-39) 10/18/23 14:50 ALT 10 U/L (7-52) 10/18/23 14:50 Alkaline Phosphatase 65 U/L (34-104) 10/18/23 14:50 Troponin I High Sens 9.1 pg/ml (0-14) 10/18/23 14:50 Total Protein 7.9 gm/dl (6.0-8.3) 10/18/23 14:50 Albumin 4.1 gm/dl (3.4-5.0) 10/18/23 14:50 Globulin 3.8 gm/dl (2.5-4.0) 10/18/23 14:50 Albumin/Globulin Ratio 1.1 (0.9-2) 10/18/23 14:50 Procalcitonin 0.23 ng/ml (0-0.5) 10/18/23 18:33 Urine Color Yellow 10/18/23 Unknown Urine Appearance Turbid (Clear) A 10/18/23 Unknown Urine pH 5.5 (4.5-7.5) 10/18/23 Unknown Ur Specific [place] 1.017 (1.000-1.030) 10/18/23 Unknown Urine Protein 1+ (Negative) H 10/18/23 Unknown Urine Glucose (UA) Negative (Negative) 10/18/23 Unknown Urine Ketones Negative (Negative) 10/18/23 Unknown Urine Blood 1+ (Negative) H 10/18/23 Unknown Urine Nitrite Negative (Negative) 10/18/23 Unknown Urine Bilirubin Negative (Negative) 10/18/23 Unknown Urine Urobilinogen Negative (Negative) 10/18/23 Unknown Ur Leukocyte Esterase 3+ (Negative) H 10/18/23 Unknown Urine WBC (Auto) >30 /hpf (0-5) H 10/18/23 Unknown Urine RBC (Auto) 0-4 /hpf (0-4) 10/18/23 Unknown U Hyaline Cast (Auto) 1-5 /lpf (0-5) 10/18/23 Unknown U Epithel Cells (Auto) >30 /lpf (0-5) H 10/18/23 Unknown Urine Bacteria (Auto) 2+ (Negative) H 10/18/23 Unknown Adenovirus (PCR) Not Detected (NotDetected) 10/18/23 Unknown B. pertussis DNA (PCR) Not Detected (NotDetected) 10/18/23 Unknown B.parapertussis DNA PCR Not Detected (NotDetected) 10/18/23 Unknown C. pneumoniae DNA (PCR) Not Detected (NotDetected) 10/18/23 Unknown Coronavirus OC43 (PCR) Not Detected (NotDetected) 10/18/23 Unknown Coronavirus HKU1 (PCR) Not Detected (NotDetected) 10/18/23 Unknown Coronavirus 229E (PCR) Not Detected (NotDetected) 10/18/23 Unknown SARS-CoV-2 (PCR) Not Detected (NotDetected) 10/18/23 Unknown Coronavirus NL63 (PCR) Not Detected (NotDetected) 10/18/23 Unknown Enterobacterales (PCR) DETECTED (NotDetected) A 10/18/23 19:26 E. coli (PCR) DETECTED (NotDetected) A 10/18/23 19:26 Human Metapneumovir PCR Not Detected (NotDetected) 10/18/23 Unknown Influenza Type A (PCR) Not Detected (NotDetected) 10/18/23 Unknown Influenza Type B (PCR) Not Detected (NotDetected) 10/18/23 Unknown M. pneumoniae (PCR) Not Detected (NotDetected) 10/18/23 Unknown Parainfluenza 1 (PCR) Not Detected (NotDetected) 10/18/23 Unknown Parainfluenza 2 (PCR) Not Detected (NotDetected) 10/18/23 Unknown Parainfluenza 3 (PCR) Not Detected (NotDetected) 10/18/23 Unknown Parainfluenza 4 (PCR) Not Detected (NotDetected) 10/18/23 Unknown RSV (PCR) Not Detected (NotDetected) 10/18/23 Unknown Entero/Rhino (PCR) Not Detected (NotDetected) 10/18/23 Unknown mcr-1 Colistin Res Gene PCR Not Detected (NotDetected) 10/18/23 19:26 blaIMP Car res Gene PCR Not Detected (NotDetected) 10/18/23 19:26 KPC-Carbap Res Gene PCR Not Detected (NotDetected) 10/18/23 19:26 blaNDM Car Res Gene PCR Not Detected (NotDetected) 10/18/23 19:26 OXA-48 Carbapenem Resis Gene (PCR) Not Detected (NotDetected) 10/18/23 19:26 blaVIM Car Res Gene PCR Not Detected (NotDetected) 10/18/23 19:26 CTX-M Gene Resistance (PCR) Not Detected (NotDetected) 10/18/23 19:26 Bld Cult ID Panel PCR See PCR Comment (NotDetected) 10/18/23 19:26 Impressions Abdomen/Pelvis CT 10/18/23 17:53 CT SCAN OF THE ABDOMEN AND PELVIS WITH IV CONTRAST CLINICAL HISTORY: Vomiting. Night sweats. Generalized weakness. COMPARISON STUDY: No priors. TECHNIQUE: Following the IV administration of 85 cc of Optiray 320, CT scan of the abdomen and pelvis is performed from the lung bases to the proximal femora. Images are reviewed in the axial, sagittal, and coronal planes. IV contrast was administered without complication. A dose lowering technique was utilized adhering to the principles of ALARA. CT DOSE: 1285.32 mGy.cm FINDINGS: Lung bases: The heart is normal in size and without pericardial effusion. The coronary arteries are densely calcified. There is bibasilar sca rring/atelectasis. The lung bases are otherwise clear. Liver: The contrast-enhanced liver is normal in size, contour, and attenuation. There is no intrahepatic biliary ductal dilatation. The hepatic veins and portal veins are patent. Gallbladder: There calcified gallstones with no CT evidence of acute cholecystitis. Spleen: Normal in size and attenuation. Pancreas: Atrophic and grossly unremarkable. Adrenal glands: Unremarkable. Kidneys: The contrast enhanced kidneys are normal in size and without hydronephrosis. The right kidney enhances normally. There is heterogeneous enhancement seen in the mid to lower pole of the left kidney with associated perinephric stranding. A 1.8 cm cyst is noted in the right kidney. Additional subcentimeter cortical hypodensities also likely represent cysts but are too small for definitive characterization. Abdominal vasculature: There is advanced saphenous chronic calcification and ectasia of the abdominal aorta. There is mild aneurysmal dilatation of the left common iliac artery which measures up to 2.1 cm. Bowel: There is advanced diverticulosis of the left colon without CT evidence of diverticulitis. The appendix is well-visualized and normal. Peritoneum: There is no intraperitoneal free air or abdominal ascites. Lymphadenopathy: None. Pelvic viscera: The bladder is normal as visualized. The uterus is surgically absent. No adnexal lesion is seen. Skeletal structures: The skeletal structures are osteopenic. There is moderate to advanced lumbosacral spondylosis. No lytic or blastic lesions are seen. IMPRESSION: 1. There is heterogeneous enhancement in the mid to lower pole of the left kidney with surrounding inflammation. The appearance favors pyelonephritis. Correlate with clinical findings and urinalysis. 2. Cholelithiasis. 3. Advanced coronary artery atherosclerosis. 4. Colonic diverticulosis without CT evidence of acute diverticulitis. 5. Additional findings as above. ACT 112: Negative or not required by law. Electronically signed by: Chuck Arroyo M.D. 10/18/2023 6:36 PM Chest X-Ray 10/20/23 10:53 XR chest 1V portable HISTORY: 73 years-old Female Hypoxia COMPARISON: 10/18/2023 TECHNIQUE: AP view the chest FINDINGS: Cardiac silhouette is enlarged. Pulmonary vascular congestion. No pneumothorax, or pleural effusion. Mild chronic interstitial coarsening. Bibasilar atelectasis versus scarring is unchanged. IMPRESSION: 1. Cardiomegaly without overt pulmonary edema. 2. Chronic interstitial coarsening suggestive of fibrosis. ACT 112: Negative or not required by law. The above report was generated using voice recognition software. It may contain grammatical, syntax or spelling errors. Electronically signed by: Jake Hdz M.D. 10/20/2023 11:35 AM Ordered Studies 10/18/23 17:53 CT Abd and Pelvis [CT abd pelvis IV con only] Stat Hospital Course (1) Acute pyelonephritis: 73-year-old female with past medical history significant for type 2 diabetes, hyperlipidemia, hypothyroidism, obstructive obstructive apnea, hypertension, CAD status post stent, history of bradycardia, GERD, fatty liver, restless leg syndrome, psychophysiological insomnia, comes with dizziness and weakness going on for last 1 week and found to have UTI. She is coughing and bringing phlegm for some time now. Getting short of breath on exertion. Having bilateral flank pain. Denies any chest pain. No headache. Vision is okay. Currently no runny nose or sore throat or earaches. No abdominal pain. Somewhat constipated. Denies any blood in the stools. Normal bladder movements.. Resting comfortably and hemodynamically stable. Acute pyelonephritis Gram-negative bacteremia --CT ABD:There is heterogeneous enhancement in the mid to lower pole of the left kidney with surrounding inflammation. The appearance favors pyelonephritis. Correlate with clinical findings and urinalysis. Cholelithiasis. Advanced coronary artery atherosclerosis. Colonic diverticulosis without CT evidence of acute diverticulitis. --Urine culture grew E. coli --Blood culture: E.coli Continue IV Rocephin>> transition to Levaquin Received IV fluids Monitor Acute bronchitis ---CXR:Cardiomegaly with no active disease in the chest. --BioFire negative Continue Rocephin, also added doxycycline>> transition to Levaquin Monitor Will do 2 step prior to discharge Chronic diastolic heart failure Hypoxia with exertion --CXR:Cardiomegaly without overt pulmonary edema. Chronic interstitial coarsening suggestive of fibrosis. --ECHO: Left ventricle is normal in size. Moderate concentric LVH. Left ventricle wall motion is normal. EF 55 to 60%. Grade 2 diastolic dysfunction. No significant valvular disease. -- Will need to step prior to discharge Not on diuretics at home Monitor volume status Weakness and dizziness Dizziness improved with IV fluids Continue PT OT DM II HbA1c 6.8 Hold p.o. meds Continue insulin while hospitalized Monitor BGs CAD s/p stents On aspirin, Plavix, metoprolol succinate and statin Hypertension Continue metoprolol succinate and losartan monitor BP GERD Continue Pepcid Hypothyroidism Continue levothyroxine Obstructive sleep apnea CPAP nightly DVT Px: Lovenox SQ Code Status Full code Disposition Home Total Time Total Time Spent Total Time Spent (In Minutes): 55 minutes Discharge Plan Discharge Items Patient Disposition: Home - Self-Care Reason For Visit: WEAKNESS, DIZZINESS, UTI Discharge Diagnosis: Acute pyelonephritis E. coli bacteremia Acute bronchitis Activity: Per Instructions section Exercise/Sports: Wait until after follow-up appointment Non-emergency contact: Primary Care Provider Call non-emergency contact if: you have any medication questions, your symptoms worsen, your pain is concerning for you and you have a fever Follow-up/Referrals: Be Valdivia MD [Primary Care Provider] - (Date & Time 10/27/2023 3:00 PM Provider Lila Lowe CRNP Department [facility] ) Diet: Carb Consistent or DM2 and Heart Healthy Addtl Attending Provider Instructions: Follow-up with your primary care physician on 10/27/2023 3:00 PM -- Complete antibiotic course Levaquin as prescribed -- Your final blood cultures are pending at the time of discharge. Follow-up with your physician for results. --- Use supplemental oxygen via nasal cannula 2 L with activity as advised Seek immediate medical attention if your symptoms reoccur or worsen Please take all medications as instructed on discharge list below. Please call if you have any questions or problems. You can reach a [facility] hospitalist on duty at [facility] 24 hours a day by calling [phone] Pending Studies at Discharge: Yes Studies:: Blood Cultures Stand-Alone Forms: My [facility], Smoking Cessation Medications and DC Order Prescriptions: New levofloxacin 750 mg Tablet 750 mg PO Q24H Qty: 8 0RF Advanced Probiotic 625 mg (10 billion cell) Capsule 1 cap PO DAILY Qty: 15 0RF Continued famotidine 40 mg tablet 40 mg PO QAM sertraline 100 mg tablet 100 mg PO QAM clopidogrel 75 mg tablet 75 mg PO QAM simvastatin 80 mg tablet 80 mg PO HS aspirin 81 mg Tablet,Delayed Release (Dr/Ec) 81 mg PO DAILY levothyroxine 100 mcg tablet 100 mcg PO DAILYBB nitroglycerin 0.4 mg tablet, sublingual 0.4 mg sublingual DIRECTED PRN (Reason: Chest Pain) Rx Instructions: 1 TABLET UNDER TONGUE EVERY 5 MIN. FOR CHEST PAIN, MAX 3 DOSES IN 15 MINUTES. zolpidem 5 mg tablet 5 mg PO HS PRN (Reason: Sleep) metoprolol succinate 25 mg tablet extended release 24 hr 12.5 mg PO QAM losartan 100 mg tablet 100 mg PO QAM metformin 500 mg tablet extended release 24 hr 500 mg PO QAM metronidazole [Metrogel] 0.75 % Gel 1 applic TOPICAL BID PRN (Reason: AFFECTED AREAS) omega [id number]-fish oil [Fish Oil] 1,200 (144-216) mg Capsule 2 cap PO DAILY Discharge Orders: Discharge Order (Routine); Ordered 10/21/23 Ordered By: Sal Aguirre Admission Data Admit Date/Time: 10/18/23 20:40 Attending Provider: Sal Aguirre Admit Provider: Juan Cramer Primary Care Provider: Be Valdivia Other Providers: Juan Cramer
[2023-10-21] MEDS ORDERED: levoFLOXacin 750 MG TAB PO SCH (18:00)
== END 2023-10-21 16:39 | disposition home or self-care (01) | DRG 690 ==
LOC: ED 13:20 → 3N 20:40